=== PATIENT | female | born 1990 | race Caucasian/White ===

== ENCOUNTER 2022-07-19 15:36 | Outpatient (REF) | payer BC, SELFPAY ==
--- NOTE | ~2022-07-19 | US_ITS ---
EXAMINATION: US SOFT TISSUE NECK CLINICAL INFORMATION: Localized swelling, mass or lump in the neck COMPARISON: None TECHNIQUE: Grayscale and color imaging of the left neck using a linear transducer FINDINGS: There is an enlarged lymph node seen inferior to the left ear and adjacent to the superficial lobe of the left parotid gland. This measures 3.6 x 3.7 x 2.4 cm in sagittal, transverse and AP dimension. This demonstrates abnormal ultrasound morphology with hypoechoic diffusely thickened cortex and slitlike hilum. This demonstrates abnormal cortical flow. US/US soft tiss head and/or neck IMPRESSION: Enlarged abnormal appearing left cervical lymph node. Infectious, inflammatory and neoplastic processes should be considered. This would be amenable to ultrasound-guided fine-needle aspiration if clinically indicated. 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
[2022-07-19 15:44] LABS: MANUAL DIFF FLAG NO
[2022-07-19 15:51] LABS: Basophils Absolute Auto 0.1 X10*3/uL (0.0-0.2); Basophils Percent Auto 0.5 % (0-2); Eosinophils Absolute Auto 0.2 X10*3/uL (0.0-0.4); Eosinophils Percent Auto 2.1 % (0-4); Hematocrit 39.2 % (37.0-47.0); Hemoglobin 13.1 g/dl (12.0-16.0); Imm Gran Abs Auto 0.05 X10*3/uL (0.00-0.03); Imm Gran Pct Auto 0.4 % (0.0-0.4); Lymphocytes Absolute Auto 3.3 X10*3/uL (1.2-4.9); Lymphocytes Percent Auto 28.4 % (20-40); Mean Corpuscular HGB Conc 33.4 g/dl (31.0-35.0); Mean Corpuscular Hemoglobin 30.6 pg (27.0-33.0); Mean Corpuscular Volume 91.6 fL (80.0-98.0); Mean Platelet Volume 10.3 fL (9.4-12.3); Monocytes Absolute Auto 0.8 X10*3/uL (0.1-1.2); Monocytes Percent Auto 7.1 % (2-11); Neutrophils Absolute Auto 7.1 x10*3/uL (2.0-8.3); Neutrophils Percent Auto 61.5 % (45-73); Platelet Count 294 X10*3/uL (160-400); Red Blood Count 4.28 X10*6/uL (4.20-5.50); Red Cell Distribution Width 12.6 % (11.0-16.0); White Blood Count 11.5 X10*3/uL (4.8-10.8)
[2022-07-19 16:39] LABS: Alanine Aminotransferase 20 U/L (0-31); Albumin Level 4.8 g/dL (3.5-5.0); Alkaline Phosphatase 60 U/L (39-117); Anion Gap 14 (12-20); Aspartate Amino Transferase 18 U/L (5-31); Blood Urea Nitrogen 11 mg/dL (9-16); Calcium 9.7 mg/dL (8.4-10.2); Carbon Dioxide 25 mmol/L (22-29); Chloride 100 mmol/L (96-108); Cholesterol 257 mg/dL; Estimated Glomerular Filt Rate > 60; Glucose Fasting 86 mg/dL (60-99); HDL Cholesterol 55 mg/dL; LDL Cholesterol Calculated 171 mg/dl; Potassium 3.8 mmol/L (3.3-5.1); Sodium 135 mmol/L (135-145); TSH reflex Free T4 0.89 uIU/mL (0.32-4.0); Total Protein 7.3 g/dL (6.5-8.0); Triglycerides 157 mg/dL
[2022-07-20 16:51] LABS: C Reactive Protein 0.37 mg/dL (< or = 0.50)
== END 2022-07-19 15:37 | disposition home or self-care (01) ==
LOC: HO.US 15:36
PROVIDERS: PCP Family Medicine; Visit Provider Nurse Practitioner Family
DX: R22.1 Localized swelling, mass and lump, neck (principal)
CPT/HCPCS: 36415; 76536; 80053; 80061; 84443; 85025; 86140

== ENCOUNTER 2022-07-28 08:03 | Outpatient (REF) | payer BC, SELFPAY ==
--- NOTE | ~2022-07-28 | US_ITS ---
EXAMINATION: CLINICAL INFORMATION: COMPARISON: None TECHNIQUE: FINDINGS: US/US biopsy lymph node IMPRESSION:
--- NOTE | ~2022-07-28 | US_ITS ---
EXAMINATION: ULTRASOUND GUIDED FINE-NEEDLE BIOPSY LEFT NECK MASS CLINICAL INFORMATION: Increasing left soft tissue neck mass now with jaw pain. COMPARISON: Ultrasound soft tissue neck 07/19/2022. TECHNIQUE: Following explaining ultrasound-guided fine-needle biopsy aspiration of left soft tissue neck mass procedure, benefits and risk, a written consent was obtained. Patient was placed supine and preliminary ultrasound imaging to the left neck was obtained. An optimal site was selected along the left neck and marked. The marked site was cleaned and draped in usual sterile manner. 1% lidocaine was injected at the puncture site. Under sterile ultrasound guidance a 25-gauge needle attached to syringe was inserted through the skin into the soft tissue mass and a 3 pass fine-needle biopsy aspiration was performed. Subsequently, a 20-gauge biopsy gun was advanced and a 3 pass lymph node biopsy was performed. Postprocedure ultrasound was performed. Complete hemostasis achieved at puncture site. Simple dressing was applied at the puncture site. Patient tolerated procedure extremely well. FINDINGS: On preliminary ultrasound imaging, there is a lobulated or 2 larger hypoechoic masses, likely lymph nodes seen along the left neck. Preliminary pathology results revealed epithelial cells. Definite results are pending. US/US guided fine needle asp IMPRESSION: Successful ultrasound-guided left neck soft tissue mass with 3 pass fine-needle and 2 core biopsy performed.
== END 2022-07-28 08:04 | disposition home or self-care (01) ==
LOC: HO.US 08:03
PROVIDERS: Visit Provider Nurse Practitioner Family
DX: C44.42 Squamous cell carcinoma of skin of scalp and neck (principal)
CPT/HCPCS: 10005; 38505; 76942; 88172; 88173; 88177; 88305; 88333; 88341; 88342

== ENCOUNTER 2022-08-08 13:42 | Outpatient (REF) | payer BC, SELFPAY ==
--- NOTE | ~2022-08-08 | CT_ITS ---
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 COMPARISON: None TECHNIQUE: Following the administration of 60 mL of Omnipaque 350 intravenous contrast, helical imaging was performed in the axial plane with generation of coronal and sagittal reformatted images. This CT examination was performed using dose optimization techniques as appropriate, variously including the following: *Automated exposure control *Adjustment of mA and/or kV according to patient size (this includes techniques or standardized protocols for targeted exams where dose is matched to indication/reason for exam; i.e. extremities or head) *Use of iterative reconstruction technique DLP: 290 mGy-cm FINDINGS: There is a large conglomerate dustin mass measuring up to 4.8 cm involving the left parotid gland and extending inferiorly to level 2 and 3. There is mild associated stranding which may represent extracapsular extension. There is a mildly enlarged left level 3 lymph node measuring 1.2 cm. There is a mildly enlarged 1.5 cm right level 2A lymph node but demonstrates a normal hyaline is presumably reactive. The nasopharynx and oropharynx appear normal. No palatine tonsil or definite base of tongue abnormality is seen. The right parotid gland bilateral submandibular glands appear normal. The thyroid gland appears normal. No enlarged upper mediastinal lymph nodes are seen. The major neck vessels demonstrate normal enhancement. The cervical spine is intact without significant degenerative changes. There is no acute intracranial abnormality. The upper lungs are clear. CT/CT soft tissue neck w IV con IMPRESSION: Bulky conglomerate dustin mass involving the left parotid gland and extending to level 2 and 3. Mildly enlarged left level 3 lymph node also noted. No definite pharyngeal or laryngeal lesion is seen.
[2022-08-08] MEDS: iohexoL 350 MG/ML 100 ML INFUS..BTL IV (14:12)
== END 2022-08-08 13:43 | disposition home or self-care (01) ==
LOC: HO.CT 13:42
PROVIDERS: Visit Provider Nurse Practitioner Family
DX: C44.42 Squamous cell carcinoma of skin of scalp and neck (principal); R22.1 Localized swelling, mass and lump, neck
CPT/HCPCS: 70491; Q9967

== ENCOUNTER 2023-10-16 12:18 | Outpatient (REF) | payer BC, SELFPAY ==
[2023-10-16 15:10] LABS: Free T4 (Free Thyroxine) 0.77 ng/dL (0.71-1.85); Thyroid Stimulating Hormone 3.79 uIU/mL (0.32-4.0)
[2023-10-17 09:13] LABS: T4 Thyroxine 4.8 ug/dL (4.5-12.0)
== END 2023-10-16 12:19 | disposition home or self-care (01) ==
LOC: HO.WFDLDS 12:18
PROVIDERS: Visit Provider Internal Medicine
DX: C67.0 Malignant neoplasm of trigone of bladder (principal); R94.6 Abnormal results of thyroid function studies
CPT/HCPCS: 36415; 84436; 84439; 84443

== ENCOUNTER 2023-12-20 09:33 | Outpatient (REF) | payer BC, SELFPAY ==
[2023-12-20 11:28] LABS: MANUAL DIFF FLAG NO
[2023-12-20 11:32] LABS: Appearance Urine Clear; Color Urine Yellow; Glucose Urine UA Negative (Negative); Leukocyte Esterase Urine Negative (Negative); Nitrite Urine Negative (Negative); PH 5.5 (5.0-9.0); Specific Gravity - Urine 1.025 (1.005-1.025); UMIC TRIGGER UA YES; Urine Blood Small (1+) (Negative); Urine Ketones Negative (Negative); Urine Protein Negative (Neg-Trace)
[2023-12-20 11:33] LABS: Basophils Percent Auto 0.6 % (0-2); Eosinophils Absolute Auto 0.1 X10*3/uL (0.0-0.4); Hematocrit 36.9 % (37.0-47.0); Hemoglobin 12.5 g/dl (12.0-16.0); Imm Gran Abs Auto 0.03 X10*3/uL (0.00-0.03); Imm Gran Pct Auto 0.5 % (0.0-0.4); Lymphocytes Absolute Auto 0.9 X10*3/uL (1.2-4.9); Lymphocytes Percent Auto 14.6 % (20-40); Mean Corpuscular HGB Conc 33.9 g/dl (31.0-35.0); Mean Corpuscular Hemoglobin 31.6 pg (27.0-33.0); Mean Corpuscular Volume 93.4 fL (80.0-98.0); Mean Platelet Volume 10.9 fL (9.4-12.3); Monocytes Absolute Auto 0.5 X10*3/uL (0.1-1.2); Monocytes Percent Auto 7.3 % (2-11); Neutrophils Absolute Auto 4.7 x10*3/uL (2.0-8.3); Platelet Count 261 X10*3/uL (160-400); Red Blood Count 3.95 X10*6/uL (4.20-5.50); Red Cell Distribution Width 12.7 % (11.0-16.0); White Blood Count 6.2 X10*3/uL (4.8-10.8)
[2023-12-20 11:36] LABS: Bacteria Urine None Seen (None Seen); Hyaline Casts Urine 0-2 /LPF (0-2); WBC Urine 0-5 /HPF (0-5)
[2023-12-20 12:09] LABS: Creatinine Urine 174.92 mg/dL; Microalbum/Creatinine Ratio Ur 6.8 ug/mg cr (<30)
[2023-12-20 12:36] LABS: Alanine Aminotransferase 16 U/L (0-31); Albumin Level 4.4 g/dL (3.5-5.0); Alkaline Phosphatase 41 U/L (39-117); Anion Gap 13 (12-20); Aspartate Amino Transferase 15 U/L (5-31); Bilirubin Total 0.2 mg/dL (0.0-1.0); Blood Urea Nitrogen 15 mg/dL (9-16); Calcium 9.7 mg/dL (8.4-10.2); Carbon Dioxide 22 mmol/L (22-29); Chloride 107 mmol/L (96-108); Cholesterol 191 mg/dL (<200); Estimated Glomerular Filt Rate > 60; Glucose Fasting 99 mg/dL (60-99); HDL Cholesterol 66 mg/dL (>40); LDL Cholesterol Calculated 106 mg/dL (<100); Potassium 4.1 mmol/L (3.3-5.1); Sodium 138 mmol/L (135-145); Total Protein 6.8 g/dL (6.5-8.0); Triglycerides 95 mg/dL (<150)
[2023-12-20 12:41] LABS: Free T4 (Free Thyroxine) 0.77 ng/dL (0.71-1.85); Thyroid Stimulating Hormone 3.02 uIU/mL (0.32-4.0)
[2023-12-21 06:20] LABS: Triiodothyronine T3 Total 90 ng/dL (76-181)
== END 2023-12-20 09:34 | disposition home or self-care (01) ==
LOC: HO.WFDLDS 09:33
PROVIDERS: Visit Provider Family Medicine
DX: Z00.00 Encounter for general adult medical examination without abnormal findings (principal); E55.9 Vitamin D deficiency, unspecified; E03.9 Hypothyroidism, unspecified; I10 Essential (primary) hypertension
CPT/HCPCS: 36415; 80053; 80061; 81001; 82043; 82306; 82570; 84439; 84443; 84480; 85025

== ENCOUNTER 2023-12-21 16:24 | Outpatient (AMB) | payer BC, SELFPAY ==
[2023-12-21 16:27] VITALS: BP 108/70; PULSE 80; RESP 13; TEMP 36.3; O2SAT 98; BMI 21.5
--- NOTE | 2023-12-21 16:27 | MHC.PC.OV ---
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 Uppers Or Linings Required: No Accompanied by: Self / Same As Patient Allergies No Known Allergies Allergy (Verified 12/21/23 16:47) Medication List - Last Reconciled 12/21/23 by Alejandra Holguin CNP acetaminophen (Tylenol Extra Strength) 1,000 mg PO Q6H PRN omeprazole magnesium 20 mg PO DAILY ondansetron HCl 8 mg PO Q12H trazodone 50 mg PO BEDTIME PRN 30 days Tobacco use date assessed: 12/21/23 Dental Screening Dental Screen Date: 12/21/23 Did you have a dental visit in the last 12 months?: Yes Did you have a dental problem in the last 6 months where you did not have access to dental care?: No Was dental information given to patient?: Patient has dentist HPI HPI Comments History of Present Illness Details 33-year-old female presents for an extended physical exam and review of recent blood work She is a patient of Dr. 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 She requests for omeprazole to be prescribed She admits to making healthy lifestyle changes, including diet and exercise She notes that her last pap smear test was with [facility] in 06/2023; followed yearly She notes that she is not up-to-date on the flu vaccine and declines the vaccine [facility] Medical History In vitro fertilization Surgical History H/O laparoscopy History of tonsillectomy H/O lateral meniscus repair of left knee Family History Maternal Grandfather Diabetes Paternal Grandmother Lung cancer Other Mental health disorder Substance abuse Social History Household Members: None Both parents involved: No Caregiver staying overnight: No Housing: Apartment Are you a primary early breastfeeding care specialist to a significant other at home: No Do you presently have visiting nurse or other home services: No 75 years or older and lives alone: No Alcohol intake: current Alcohol intake frequency: holidays/special occasions only Alcohol type: hard liquor Patient Tobacco Use Status: Former Tobacco user e-Cigarette/Vaping Use: Never Used service: No Current occupational status: employed 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 1. Little interest or pleasure in doing things: not at all 2. Feeling down, depressed, or hopeless: not at all 3. Trouble falling or staying asleep, or sleeping too much: not at all 4. Feeling tired or having little energy: not at all 5. Poor appetite or overeating: not at all 6. Feeling bad about yourself - or that you are a failure or have let yourself or your family down: not at all 7. Trouble concentrating on things, such as reading the newspaper or watching television: not at all 8. Moving or speaking so slowly that other people could have noticed. Or the opposite - being so fidgety or restless that you have been moving around a lot more than usual: not at all 9. Thoughts that you would be better off or of hurting yourself in some way: not at all Total score: 0 Depression Screening Interpretation: Negative Depression Screening Done: Yes Source: Developed by Drs. Jareth Hannah, Fatou Aquino, Keenan Hendricks and colleagues, with an educational keila from [employer]. Thrive Questionnaire Date Thrive assessed: 12/21/23 I am a: Patient What is your living situation today?: I have a steady place to live Within the past 12 months, did the food you bought not last and you didn't have the money to get more?: Never true Within the past 12 months, did you worry whether your food would run out before you got money to buy more?: Never true Do you have trouble paying for medicines?: No Do you have trouble getting transportation to medical appointments?: No Do you have trouble paying your heating and electricity bill?: No Do you have trouble taking care of your child, family member or friend?: No Do you have trouble with day-to-day activities such as bathing, preparing meals, shopping, managing finances, etc.?: No Are you currently unemployed and looking for a job?: No Are you interested in more education?: No Please select the resources that you would like help with: None Currently or been in a relationship where the following occur: no concerns reported THRIVE Score: 0 AUDIT C Alcohol Use Questionnaire (AUDIT-C) 1. How often do you have a drink containing alcohol?: Monthly or less 2. How many drinks containing alcohol do you have on a typical day when you are drinking?: 1 or 2 3. How often do you have six or more drinks on one occasion?: Never Total Score: 1 KANG-7 AMB Questionnaire KANG-7 Date KANG - 7 assessed: 12/21/23 Feeling nervous, anxious, or on edge: 0 = Not at all Not being able to stop or control worryin = Not at all Worrying too much about different things: 0 = Not at all Trouble relaxin = Not at all Being so restless that it is hard to sit still: 0 = Not at all Becoming easily annoyed or irritable: 0 = Not at all Feeling afraid as if something awful might happen: 0 = Not at all Total KANG-7 score (0-4 normal; 5-9 mild; 10-14 moderate; 15-21 severe): 0 Source: Developed by Drs. Jareth Hannah, Fatou Aquino, Keenan Hendricks and colleagues, with an educational keila from [employer]. KANG-7 Assessment Billing KANG-7 Assessment Tool: KANG-7 Assessment 16386 Review of Systems Const Details: Denies chills, Denies fatigue, Denies fever(s), Denies headache(s) and Denies weakness HEENT Denies change in vision, Denies dizziness, Denies headache(s), Denies hearing loss, Denies nasal congestion, Denies sinus pain, Denies sinus pressure and Denies sore throat Card Denies chest pain, Denies lightheadedness, Denies dyspnea and Denies other (palpitations) Resp Denies cough, Denies dyspnea and Denies wheezing GI Denies abdominal pain, Denies melena, Denies hematochezia, Denies change in bowel habits, Denies dyspepsia and Denies nausea Denies hematuria and Denies dysuria Musc Denies abnormal gait, Denies myalgias, Denies arthralgias, Denies numbness and Denies tingling Skin/Breast Denies rash, Denies unusual bruising and Denies wounds Neuro Denies abnormal gait, Denies dizziness, Denies headache(s), Denies memory loss, Denies numbness, Denies Sensory deficit (Neuro), Denies tingling and Denies weakness Psych Denies anxiety, Denies depression and Denies memory loss Endo Denies cold intolerance, Denies fatigue, Denies heat intolerance, Denies polydipsia and Denies polyuria Ellis/Lymph Denies easy bleeding and Denies easy bruising Aller/Immun Denies wheezing Physical exam (Primary Care) Vital Signs: Last Vital Signs Temp 97.3 F 12/21/23 16:27 Pulse 80 12/21/23 16:27 Resp 13 12/21/23 16:27 BP 108/70 12/21/23 16:27 Pulse Ox 98 12/21/23 16:27 Oxygen Delivery Method Room Air 12/21/23 16:27 BMI result Body Mass Index 21.5 Tobacco/Smoking Status: Tobacco use Status Tobacco use date assessed 12/21/23 12/21/23 16:38 Patient Tobacco Use Status Former Tobacco user 12/21/23 16:36 e-Cigarette/Vaping Use Never Used 12/21/23 16:36 PHQ-9: PHQ-9 Score PHQ-9: Total score 0 12/21/23 16:38 Depression Screening Interpretation: Negative Thrive Assessment: Date of Thrive Assessment Date Thrive assessed 12/21/23 12/21/23 16:38 Currently or been in a relationship where the following occur: no concerns reported Const Other: General: no acute distress, well developed, alert and awake Nutritional Appearance: well nourished Orientation/consciousness: patient oriented x3 HENMT Head: Yes normocephalic and Yes atraumatic Ears: hearing grossly normal bilaterally and TM's normal bilaterally General nose exam: Normal external nose present and Normal nares present Mouth: Normal oral and palatal mucosa present and moist mucous membranes Teeth and gingiva: dentition normal Throat: Yes oropharynx normal Eyes Pupils: Equal, round and reactive pupils present and Pupil accommodation reflex normal EOM: EOMs intact bilaterally Neck Neck: Yes normal visual inspection, Yes no lymphadenopathy and Yes trachea midline Thyroid: Thyroid normal Carotids: no bruits Lymphatic: no lymphadenopathy noted Chest Chest palpation & inspection: normal inspection of the chest Resp Effort & Inspection: normal respiratory effort Auscultation: clear to auscultation bilaterally Cardio Rate: regular rate Rhythm: regular rhythm Heart sounds: S1 normal heart sound present, S2 normal heart sound present, no gallops, no murmurs and no rubs Bruits: no abdominal aortic bruits and no carotid bruits GI Palpation (GI): No Abdominal aortic bruit present, Soft to palpation, nontender, No hepatosplenomegaly present and No Rebound tenderness present Auscultation: normal bowel sounds General: Yes no CVA tenderness Back/Spine/Pelvis Back: no CVA tenderness Cervical Spine: cervical ROM normal and No Cervical spine tenderness Thoracic/Lumbar Spine: thoraco-lumbar ROM normal, No pain with thoraco-lumbar ROM, No thoracic spinal tenderness and No lumbar spinal tenderness Skin General: warm and dry. Normal skin color. Normal skin turgor Lesions: no lesions Rashes: no rashes Trauma: no lacerations or abrasions Wounds: no wounds Nails: normal Neuro General: patient oriented x3, gait normal and CN's II-XI intact bilaterally Cranial nerves: Yes Equal, round and reactive pupils present Cognition (Neuro): normal cognition Gait exam (Neuro): Normal gait present Motor exam (neuro): 5/5 motor strength present throughout Sensory Exam: No Sensory deficit (Neuro) Deep tendon reflexes (DTR's): Right patellar reflex intensity grade: 2+ and Left patellar reflex intensity grade: 2+ Extrem General: Yes normal to inspection, No edema and No calf tenderness Psych Appearance: grossly normal Affect: normal affect Attitude: cooperative Thought process: Normal thought process present Assessment and Plan Assessment & Plan (1) Normal physical examination, routine: Code(s): Z00.00 - Encounter for general adult medical examination without abnormal findings Plan: No significant physical restrictions or limitations noted Continue current treatment regimen Healthy diet and routine exercise encouraged Recent labs reviewed with the patient; unremarkable findings Follow-up with PCP in 3 months for anxiety and depression or return sooner with symptoms or concerns Verbalized understanding agreed with the treatment plan (2) GERD (gastroesophageal reflux disease): Code(s): K21.9 - Gastro-esophageal reflux disease without esophagitis Plan: Reports chronic persistent acid reflux which responds well to omeprazole Omeprazole ordered. Take as prescribed Advised to avoid fatty or greasy foods Follow-up with worsening or new symptoms Verbalized understanding and agreed with treatment plan (3) Depression with anxiety: Code(s): F41.8 - Other specified anxiety disorders Plan: Controlled symptoms PHQ-9 and KANG-7 scores are normal Continue to take trazodone as prescribed Routine exercise encouraged Follow-up with PCP in 3 months or return sooner with worsening or new symptoms Verbalized understanding and agreed with treatment plan Coding Level of Care Code Est Pt Level 3 (66336) Est Pt Prev Care 18-39y([id number]) Diagnoses Normal physical examination, routine Z00.00 GERD (gastroesophageal reflux disease) K21.9 Depression with anxiety F41.8 Additional Codes KANG-7 Assessment Billing - KANG-7 Assessment Tool: KANG-7 Assessment 05444 ([id number])
== END 2023-12-21 17:09 | disposition home or self-care (01) ==
PROVIDERS: PCP Family Medicine; Visit Provider Nurse Practitioner Family
DX: Z00.00 Encounter for general adult medical examination without abnormal findings (principal); K21.9 Gastro-esophageal reflux disease without esophagitis; F41.8 Other specified anxiety disorders
CPT/HCPCS: 99213; 99395

== ENCOUNTER 2024-03-24 16:19 | Outpatient (AMB) | payer BC, SELFPAY ==
--- NOTE | 2024-03-24 16:34 | A.OFFPC_ITS ---
Vital Signs 03/24/24 16:40 Height 5 ft 6 in Weight 141 lb 4 oz BMI 22.8 BP 100/60 Blood Pressure Location Rt brachial Position Sitting Respiration 16 Pulse 63 Pulse Source Pulse Oximeter Temp 97.7 F Temp Source Tympanic Pulse Oximetry (%) 98 Oxygen Delivery Method Room Air Intake Visit Reasons: 3 mos anxiety, depression Intake Note: follow up on depression and anxiety medication Allergies No Known Allergies Allergy (Verified 03/24/24 16:34) Tobacco use date assessed: 12/21/23 Dental Screening Dental Screen Date: 12/21/23 HPI 3 mos anxiety, depression HPI Details 33 y/o female presents to f/u anxiety/de pression. PHQ-9 6, KANG-7 5 today. Labs drawn 12/20/23. Reviewed labs with pt. Triglycerides 95. TC 191. LDL improved from 171 to 106. HDL 66. She notes she does well with trazodone for her sleep. Continues to f/u with [facility] for squamous cell carcinoma of neck. She does report ongoing nausea. HPI Comments History of Present Illness Details Documentation assistance for Vu Oconnell MD, was provided by Noah Tillman, Retail Reset Merchandiser on 03/24/2024 at 5:19 PM EST. I, Dr. Oconnell, have read, observed, and verified documentation. [facility] Medical History In vitro fertilization Surgical History H/O laparoscopy History of tonsillectomy H/O lateral meniscus repair of left knee Family History Maternal Grandfather Diabetes Paternal Grandmother Lung cancer Other Mental health disorder Substance abuse Social History Household Members: None Both parents involved: No Caregiver staying overnight: No Housing: Apartment Are you a primary customer care specialist to a significant other at home: No Do you presently have visiting nurse or other home services: No 75 years or older and lives alone: No Alcohol intake: current Alcohol intake frequency: holidays/special occasions only Alcohol type: hard liquor Patient Tobacco Use Status: Former Tobacco user e-Cigarette/Vaping Use: Never Used service: No Current occupational status: employed 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 1. Little interest or pleasure in doing things: not at all 2. Feeling down, depressed, or hopeless: not at all 3. Trouble falling or staying asleep, or sleeping too much: several days 4. Feeling tired or having little energy: several days 5. Poor appetite or overeating: nearly every day 6. Feeling bad about yourself - or that you are a failure or have let yourself or your family down: not at all 7. Trouble concentrating on things, such as reading the newspaper or watching television: several days 8. Moving or speaking so slowly that other people could have noticed. Or the opposite - being so fidgety or restless that you have been moving around a lot more than usual: not at all 9. Thoughts that you would be better off or of hurting yourself in some way: not at all Total score: 6 Depression Screening Interpretation: Positive Depression Screening Done: Yes 90230 - PHQ-9 Billing: Yes Source: Developed by Drs. Jareth Hannah, Fatou Aquino, Keenan Hendricks and colleagues, with an educational keila from [employer]. Thrive Questionnaire Date Thrive assessed: 03/24/24 What is your living situation today?: I have a steady place to live Within the past 12 months, did the food you bought not last and you didn't have the money to get more?: Never true Within the past 12 months, did you worry whether your food would run out before you got money to buy more?: Never true Do you have trouble paying for medicines?: No Do you have trouble getting transportation to medical appointments?: No Do you have trouble paying your heating and electricity bill?: No Do you have trouble taking care of your child, family member or friend?: No Do you have trouble with day-to-day activities such as bathing, preparing meals, shopping, managing finances, etc.?: No Are you currently unemployed and looking for a job?: No Are you interested in more education?: Yes Please select the resources that you would like help with: None Currently or been in a relationship where the following occur: No concerns reported THRIVE Score: 0 AUDIT C Alcohol Use Questionnaire (AUDIT-C) 1. How often do you have a drink containing alcohol?: Monthly or less 2. How many drinks containing alcohol do you have on a typical day when you are drinking?: 3 or 4 3. How often do you have six or more drinks on one occasion?: Less than monthly Total Score: 3 Score Reviewed/Action Taken: Yes KANG-7 AMB Questionnaire AKNG-7 Date KANG - 7 assessed: 03/24/24 Feeling nervous, anxious, or on edge: 1 = Several days Not being able to stop or control worryin = Not at all Worrying too much about different things: 1 = Several days Trouble relaxin = Several days Being so restless that it is hard to sit still: 2 = More than half the days Becoming easily annoyed or irritable: 0 = Not at all Feeling afraid as if something awful might happen: 0 = Not at all Total KANG-7 score (0-4 normal; 5-9 mild; 10-14 moderate; 15-21 severe): 5 Source: Developed by Drs. Jareth Hannah, Fatou Aquino, Keenan Hendricks and colleagues, with an educational keila from [employer]. KANG-7 Assessment Billing KANG-7 Assessment Tool: KANG-7 Assessment 20202 Review of Systems Const Denies chills, Denies fatigue, Denies fever(s), Denies headache(s) and Denies weakness ENT Denies dizziness and Denies headache(s) Card Denies dyspnea Resp Denies cough, Denies dyspnea, Denies wheezing and Denies other (shortness of breath) GI Reports nausea Musc Denies numbness and Denies tingling Neuro Denies dizziness, Denies headache(s), Denies numbness, Denies tingling and Denies weakness Psych Reports anxiety and Reports depression Endo Denies fatigue Aller/Immun Denies wheezing Physical exam (Primary Care) Vital Signs: Last Vital Signs Temp 97.7 F 03/24/24 16:40 Pulse 63 03/24/24 16:40 Resp 16 03/24/24 16:40 BP 100/60 03/24/24 16:40 Pulse Ox 98 03/24/24 16:40 Oxygen Delivery Method Room Air 03/24/24 16:40 BMI result Body Mass Index 22.8 Tobacco/Smoking Status: Tobacco use Status Tobacco use date assessed 12/21/23 03/24/24 16:44 Patient Tobacco Use Status Former Tobacco user 03/24/24 16:44 e-Cigarette/Vaping Use Never Used 03/24/24 16:44 PHQ-9: PHQ-9 Score PHQ-9: Total score 6 03/24/24 16:55 Depression Screening Interpretation: Positive Thrive Assessment: Date of Thrive Assessment Date Thrive assessed 03/24/24 03/24/24 16:44 Currently or been in a relationship where the following occur: No concerns reported Const General: well developed; No acute distress Nutritional Appearance: well nourished Orientation/consciousness: patient oriented x3 HENMT Head: Yes normocephalic and Yes atraumatic Eyes General: appearance normal, both eyes and all related structures Pupils: Equal, round and reactive pupils present EOM: EOMs intact bilaterally Resp Effort & Inspection: normal respiratory effort Auscultation: clear to auscultation bilaterally Cardio Rate: regular rate Rhythm: regular rhythm Heart sounds: S1 normal heart sound present, S2 normal heart sound present, no gallops, no murmurs and no rubs Neuro General: patient oriented x3 and gait normal Cranial nerves: Yes Equal, round and reactive pupils present Psych Affect: normal affect Assessment and Plan Assessment & Plan (1) Depression with anxiety: Code(s): F41.8 - Other specified anxiety disorders Plan: Stable?and?using?trazodone?for?sleep?with ?good?affect?though?there?are?days?when?she?has?not?taken?the?trazodone?because? she?would?wake?up?drowsy - understands?that?she?should?take?trazodone?earlier?but?sometimes?she?can?not?do? this Can?try?some?hydroxyzine (2) Elevated LDL cholesterol level: Code(s): E78.00 - Pure hypercholesterolemia, unspecified Plan: Continue?to?work?at?a?diet?lower?in?saturated?fats?and?cholesterol (3) Difficulty sleeping: Code(s): G47.9 - Sleep disorder, unspecified Plan: As?above (4) Squamous cell carcinoma of neck: Code(s): C44.42 - Squamous cell carcinoma of skin of scalp and neck Plan: Stable?and?followed?by?[facility] Still?gets?nausea Will?give?her?a?script?for?Zofran Orders: Orders Comprehensive [place]. Panel Fast Today Z00.00 - Encounter for general adult med ical examination without abnormal findings Lipid Panel Today Z00.00 - Encounter for general adult medical examination without abnormal findings Microalbumin, Random (w Creat) Today I10 - Essential (primary) hypertension UA and rflx microscopic Today Z00.00 - Encounter for general adult medical examination without abnormal findings TSH reflex Free T4 Today Z00.00 - Encounter for general adult medical examination without abnormal findings Free T4 (Free Thyroxine) Today E03.9 - Hypothyroidism, unspecified Complete Blood Count Auto Diff Today Z00.00 - Encounter for general adult medical examination without abnormal findings Triiodothyronine T3 Total Today E03.9 - Hypothyroidism, unspecified Medications: New hydroxyzine HCl 25 mg PO BEDTIME 30 days PRN 10 tabs 0RF anxiety/difficulty sleeping C44.42 - Squamous cell carcinoma of skin of scalp and neck ondansetron 4 mg PO DAILY 30 days PRN 30 tabs 1RF nausea and vomiting C44.42 - Squamous cell carcinoma of skin of scalp and neck Coding Level of Care Code Est Pt Level 4 (43747) Diagnoses Depression with anxiety F41.8 Elevated LDL cholesterol level E78.00 Difficulty sleeping G47.9 Squamous cell carcinoma of neck C44.42 Additional Codes KANG-7 Assessment Billing - KANG-7 Assessment Tool: KANG-7 Assessment 75449 ([id number])
[2024-03-24 16:40] VITALS: BP 100/60; PULSE 63; RESP 16; TEMP 36.5; O2SAT 98; BMI 22.8
== END 2024-03-24 17:29 | disposition home or self-care (01) ==
PROVIDERS: PCP Family Medicine; Visit Provider Family Medicine
DX: F41.8 Other specified anxiety disorders (principal); E78.00 Pure hypercholesterolemia, unspecified; G47.9 Sleep disorder, unspecified; C44.42 Squamous cell carcinoma of skin of scalp and neck
CPT/HCPCS: 96127; 99214

== ENCOUNTER 2024-10-20 08:25 | Outpatient (AMB) | payer BC, SELFPAY ==
--- NOTE | 2024-10-20 08:41 | MHC.PC.OV ---
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 Required: No Is last menstrual period known: Yes Last menstrual period: 11/11/24 Post menopausal: No Patient : No Allergies No Known Allergies Allergy (Verified 10/20/24 08:44) Medication List - Last Reconciled 10/20/24 by Vu Oconnell MD acetaminophen (Tylenol Extra Strength) 1,000 mg PO Q6H PRN hydroxyzine HCl 25 mg PO BEDTIME PRN 90 days omeprazole magnesium 20 mg PO DAILY ondansetron 4 mg PO DAILY PRN 30 days ondansetron HCl 8 mg PO Q12H trazodone 50 mg PO BEDTIME PRN 30 days Tobacco use date assessed: 10/20/24 Dental Screening Dental Screen Date: 10/20/24 Did you have a dental visit in the last 12 months?: Yes Did you have a dental problem in the last 6 months where you did not have access to dental care?: No Was dental information given to patient?: No HPI annual HPI Details Patient?presents?for?annual?exam No?recent?labs?to?review. He?has?complaints?epigastric?discomfort?and?dyspepsia.??Some?GERD. She?is?taking?Tums?daily?and?still?having?symptoms?that?sometimes?break?through?this. No?other?complaints?today. [facility] Medical History In vitro fertilization Surgical History H/O laparoscopy History of tonsillectomy H/O lateral meniscus repair of left knee Family History Maternal Grandfather Diabetes Paternal Grandmother Lung cancer Other Mental health disorder Substance abuse Social History Household Members: None Both parents involved: No Caregiver staying overnight: No Housing: Apartment Are you a primary social worker palliative care to a significant other at home: No Do you presently have visiting nurse or other home services: No 75 years or older and lives alone: No Alcohol intake: current Alcohol intake frequency: holidays/special occasions only Alcohol type: hard liquor Patient Tobacco Use Status: Former Tobacco user e-Cigarette/Vaping Use: Never Used service: No Current occupational status: employed 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 1. Little interest or pleasure in doing things: not at all 2. Feeling down, depressed, or hopeless: not at all 3. Trouble falling or staying asleep, or sleeping too much: several days 4. Feeling tired or having little energy: several days 5. Poor appetite or overeating: several days 6. Feeling bad about yourself - or that you are a failure or have let yourself or your family down: not at all 7. Trouble concentrating on things, such as reading the newspaper or watching television: not at all 8. Moving or speaking so slowly that other people could have noticed. Or the opposite - being so fidgety or restless that you have been moving around a lot more than usual: not at all 9. Thoughts that you would be better off or of hurting yourself in some way: not at all Total score: 3 Depression Screening Interpretation: Negative Depression Screening Done: Yes 19030 - PHQ-9 Billing: Yes Source: Developed by Drs. Jareth Hannah, Fatou Aquino, Keenan Hendricks and colleagues, with an educational keila from [employer]. Thrive Questionnaire Date Thrive assessed: 10/20/24 I am a: Patient What is your living situation today?: I have a steady place to live Within the past 12 months, did the food you bought not last and you didn't have the money to get more?: Never true Within the past 12 months, did you worry whether your food would run out before you got money to buy more?: Never true Do you have trouble paying for medicines?: No Do you have trouble getting transportation to medical appointments?: No Do you have trouble paying your heating and electricity bill?: No Do you have trouble taking care of your child, family member or friend?: No Do you have trouble with day-to-day activities such as bathing, preparing meals, shopping, managing finances, etc.?: No Are you currently unemployed and looking for a job?: No Are you interested in more education?: Yes Please select the resources that you would like help with: None Currently or been in a relationship where the following occur: No concerns reported THRIVE Score: 0 AUDIT C Alcohol Use Questionnaire (AUDIT-C) 1. How often do you have a drink containing alcohol?: 2-4 times a month 2. How many drinks containing alcohol do you have on a typical day when you are drinking?: 3 or 4 3. How often do you have six or more drinks on one occasion?: Never Total Score: 3 Score Reviewed/Action Taken: Yes KANG-7 AMB Questionnaire KANG-7 Date KANG - 7 assessed: 10/20/24 Feeling nervous, anxious, or on edge: 1 = Several days Not being able to stop or control worryin = Several days Worrying too much about different things: 1 = Several days Trouble relaxin = Several days Being so restless that it is hard to sit still: 1 = Several days Becoming easily annoyed or irritable: 1 = Several days Feeling afraid as if something awful might happen: 0 = Not at all Total KANG-7 score (0-4 normal; 5-9 mild; 10-14 moderate; 15-21 severe): 6 Source: Developed by Drs. Jareth Hannah, Fatou Aquino, Keenan Hendricks and colleagues, with an educational keila from [employer]. KANG-7 Assessment Billing KANG-7 Assessment Tool: KANG-7 Assessment 44381 Review of Systems Const Denies chills, Denies fatigue, Denies fever(s), Denies headache(s) and Denies weakness Eyes Denies change in vision ENT Denies dizziness, Denies headache(s), Denies hearing loss, Denies nasal congestion, Denies sinus pain, Denies sinus pressure and Denies sore throat Card Denies chest pain, Denies lightheadedness, Denies dyspnea and Denies other (palpitations) Resp Denies cough, Denies dyspnea and Denies wheezing GI Denies melena, Denies hematochezia, Denies change in bowel habits, Reports dyspepsia and Reports nausea Denies hematuria and Denies dysuria Musc Denies abnormal gait, Denies myalgias, Denies arthralgias, Denies numbness and Denies tingling Skin/Breast Denies rash, Denies unusual bruising and Denies wounds Neuro Denies abnormal gait, Denies dizziness, Denies headache(s), Denies memory loss, Denies numbness, Denies Sensory deficit (Neuro), Denies tingling and Denies weakness Psych Denies anxiety, Denies depression and Denies memory loss Endo Denies cold intolerance, Denies fatigue, Denies heat intolerance, Denies polydipsia and Denies polyuria Ellis/Lymph Denies easy bleeding and Denies easy bruising Aller/Immun Denies wheezing Physical exam (Primary Care) Vital Signs: Last Vital Signs Temp 98.0 F 10/20/24 08:46 Pulse 58 10/20/24 08:46 Resp 14 10/20/24 08:46 BP 90/60 10/20/24 08:46 Pulse Ox 98 10/20/24 08:46 Oxygen Delivery Method Room Air 10/20/24 08:46 BMI result Body Mass Index 25.3 Tobacco/Smoking Status: Tobacco use Status Tobacco use date assessed 10/20/24 10/20/24 08:50 Patient Tobacco Use Status Former Tobacco user 10/20/24 08:50 e-Cigarette/Vaping Use Never Used 10/20/24 08:50 PHQ-9: PHQ-9 Score PHQ-9: Total score 3 10/20/24 08:50 Depression Screening Interpretation: Negative Thrive Assessment: Date of Thrive Assessment Date Thrive assessed 10/20/24 10/20/24 08:50 Currently or been in a relationship where the following occur: No concerns reported Const General: no acute distress, well developed, alert and awake Nutritional Appearance: well nourished Orientation/consciousness: patient oriented x3 HENMT Head: Yes normocephalic and Yes atraumatic Ears: hearing grossly normal bilaterally and TM's normal bilaterally General nose exam: Normal external nose present and Normal nares present Mouth: Normal oral and palatal mucosa present and moist mucous membranes Teeth and gingiva: dentition normal Throat: Yes posterior oropharynx normal Eyes Pupils: Equal, round and reactive pupils present and Pupil accommodation reflex normal EOM: EOMs intact bilaterally Neck Neck: Yes normal visual inspection, Yes no lymphadenopathy and Yes trachea midline Thyroid: Thyroid normal Carotids: no bruits Lymphatic: no lymphadenopathy noted Chest Chest palpation & inspection: normal inspection of the chest Resp Effort & Inspection: normal respiratory effort Auscultation: clear to auscultation bilaterally Cardio Rate: regular rate Rhythm: regular rhythm Heart sounds: S1 normal heart sound present, S2 normal heart sound present, no gallops, no murmurs and no rubs Bruits: no abdominal aortic bruits and no carotid bruits GI Palpation (GI): No Abdominal aortic bruit present, Soft to palpation, nontender, No hepatosplenomegaly present and No Rebound tenderness present Auscultation: normal bowel sounds General: Yes no CVA tenderness Back/Spine/Pelvis Back: no CVA tenderness Cervical Spine: cervical ROM normal and No Cervical spine tenderness Thoracic/Lumbar Spine: thoraco-lumbar ROM normal, No pain with thoraco-lumbar ROM, No thoracic spinal tenderness and No lumbar spinal tenderness Skin Lesions: no lesions Rashes: no rashes Trauma: no lacerations or abrasions Wounds: no wounds Nails: normal Neuro General: patient oriented x3, gait normal and CN's II-XI intact bilaterally Cranial nerves: Yes Equal, round and reactive pupils present Cognition (Neuro): normal cognition Gait exam (Neuro): Normal gait present Motor exam (neuro): 5/5 motor strength present throughout Sensory Exam: No Sensory deficit (Neuro) Deep tendon reflexes (DTR's): Right patellar reflex intensity grade: 2+ and Left patellar reflex intensity grade: 2+ Extrem General: Yes normal to inspection and No edema Psych Appearance: grossly normal Affect: normal affect Attitude: cooperative Thought process: Normal thought process present Coding Level of Care Code Est Pt Prev Care 18-39y(12243) Diagnoses Normal physical examination, routine Z00.00 Dyspepsia R10.13 Epigastric pain R10.13 Screening for cervical cancer Z12.4 Squamous cell carcinoma of neck C44.42 Additional Codes KANG-7 Assessment Billing - KANG-7 Assessment Tool: KANG-7 Assessment 30894 ([id number]) PHQ-9 - 73348 - PHQ-9 Billing: Yes ([id number]) Assessment & Plan Assessment & Plan (1) Normal physical examination, routine: Code(s): Z00.00 - Encounter for general adult medical examination without abnormal findings Category: Medical Plan: 34-year-old?female?presents?for?complete?physical?exam Encouraged?healthy?diet?with?active?lifestyle?and?plenty?of?exercise (2) Dyspepsia: Code(s): R10.13 - Epigastric pain Category: Medical Plan: Epigastric?pain?and?dyspepsia?with?some?GERD. ?Also?some?nausea. Getting?symptoms?every?day?despite?taking?omeprazole?daily. 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 I?encouraged?her?to?give?them?a?call (5) Squamous cell carcinoma of neck: Code(s): C44.42 - Squamous cell carcinoma of skin of scalp and neck Category: Medical Plan: S/p?chemotherapy?for?metastatic?squamous?cell?carcinoma?of?the?head?and?neck?at?[facility] Stable Follow-up?with?Hematology-Oncology?at?[facility]?as?recommended Orders: Orders Complete Blood Count Auto Diff Today Z00.00 - Encounter for general adult medical examination without abnormal findings Free T4 (Free Thyroxine) Today E03.9 - Hypothyroidism, unspecified UA and rflx microscopic Today Z00.00 - Encounter for general adult medical examination without abnormal findings Lipid Panel Today Z00.00 - Encounter for general adult medical examination without abnormal findings Vitamin B12 and Folate Today E53.8 - Deficiency of other specified B group vitamins H pylori Ag Stool Today R10.13 - Epigastric pain Comprehensive [place]. Panel Fast Today Z00.00 - Encounter for general adult medical examination without abnormal findings Thyroid Stimulating Hormone Today E03.9 - Hypothyroidism, unspecified Triiodothyronine T3 Total Today E03.9 - Hypothyroidism, unspecified Microalbumin, Random (w Creat) Today I10 - Essential (primary) hypertension Vitamin D 25-OH Total Today E55.9 - Vitamin D deficiency, unspecified Medications: New famotidine 20 mg PO BID 30 days 60 tabs 0RF sucralfate 1 g PO BID 30 days 60 tabs 0RF
[2024-10-20 08:46] VITALS: BP 90/60; PULSE 58; RESP 14; TEMP 36.7; O2SAT 98; BMI 25.3
== END 2024-10-20 09:28 | disposition home or self-care (01) ==
PROVIDERS: PCP Family Medicine; Visit Provider Family Medicine
DX: Z00.00 Encounter for general adult medical examination without abnormal findings (principal); R10.13 Epigastric pain; Z12.4 Encounter for screening for malignant neoplasm of cervix; C44.42 Squamous cell carcinoma of skin of scalp and neck

== ENCOUNTER → 2024-10-20 08:25 | Outpatient (BNVA) | payer BC, SELFPAY | PROVIDERS: PCP Family Medicine; Visit Provider Family Medicine | DX: Z00.00 Encounter for general adult medical examination without abnormal findings (principal); R10.13 Epigastric pain; C44.42 Squamous cell carcinoma of skin of scalp and neck; Z92.21 Personal history of antineoplastic chemotherapy | CPT/HCPCS: 96127 ==

== ENCOUNTER 2024-10-28 09:49 | Outpatient (REF) | payer BC, SELFPAY ==
[2024-10-28 11:44] LABS: MANUAL DIFF FLAG NO
[2024-10-28 11:45] LABS: Appearance Urine Clear; Color Urine Yellow; Glucose Urine UA Negative (Negative); Leukocyte Esterase Urine Negative (Negative); Nitrite Urine Negative (Negative); PH 5.5 (5.0-9.0); Specific Gravity - Urine 1.015 (1.005-1.025); UMIC TRIGGER UA YES; Urine Blood Trace (Negative); Urine Ketones Negative (Negative); Urine Protein Negative (Neg-Trace)
[2024-10-28 11:48] LABS: Bacteria Urine None Seen (None Seen); Hyaline Casts Urine 0-2 /LPF (0-2); RBC Urine 0-2 /HPF (0-2); Squamous Epithelial Cell Urine 0-2 /HPF (0-2); WBC Urine 0-5 /HPF (0-5)
[2024-10-28 11:49] LABS: Basophils Absolute Auto 0.1 X10*3/uL (0.0-0.2); Basophils Percent Auto 0.7 % (0-2); Eosinophils Absolute Auto 0.1 X10*3/uL (0.0-0.4); Eosinophils Percent Auto 1.3 % (0-4); Hematocrit 37.3 % (37.0-47.0); Imm Gran Abs Auto 0.03 X10*3/uL (0.00-0.03); Imm Gran Pct Auto 0.4 % (0.0-0.4); Lymphocytes Absolute Auto 1.3 X10*3/uL (1.2-4.9); Lymphocytes Percent Auto 17.8 % (20-40); Mean Corpuscular HGB Conc 32.2 g/dl (31.0-35.0); Mean Corpuscular Hemoglobin 30.2 pg (27.0-33.0); Mean Platelet Volume 11.4 fL (9.4-12.3); Monocytes Absolute Auto 0.5 X10*3/uL (0.1-1.2); Monocytes Percent Auto 6.8 % (2-11); Neutrophils Absolute Auto 5.1 x10*3/uL (2.0-8.3); Platelet Count 270 X10*3/uL (160-400); Red Blood Count 3.97 X10*6/uL (4.20-5.50); Red Cell Distribution Width 12.6 % (11.0-16.0)
[2024-10-28 12:50] LABS: Creatinine Urine 68.03 mg/dL; Microalbumin Urine < 5.0 mg/L
[2024-10-28 13:16] LABS: Alanine Aminotransferase 19 U/L (0-31); Albumin Level 4.4 g/dL (3.5-5.0); Alkaline Phosphatase 47 U/L (39-117); Anion Gap 11 (12-20); Aspartate Amino Transferase 20 U/L (5-31); Bilirubin Total 0.2 mg/dL (0.0-1.0); Blood Urea Nitrogen 11 mg/dL (9-16); Calcium 9.1 mg/dL (8.4-10.2); Carbon Dioxide 23 mmol/L (22-29); Chloride 109 mmol/L (96-108); Cholesterol 212 mg/dL (<200); Estimated Glomerular Filt Rate > 60; Free T4 (Free Thyroxine) 0.76 ng/dL (0.71-1.85); Glucose Fasting 88 mg/dL (60-99); HDL Cholesterol 60 mg/dL (>40); LDL Cholesterol Calculated 135 mg/dL (<100); Potassium 3.7 mmol/L (3.3-5.1); Sodium 139 mmol/L (135-145); Thyroid Stimulating Hormone 4.43 uIU/mL (0.32-4.0); Triglycerides 88 mg/dL (<150); Vitamin D 25-OH Total 32.6 ng/mL (>30)
[2024-10-28 13:18] LABS: Folate 10.9 ng/mL (> or = 4.0); Vitamin B12 521 pg/mL (200-900)
[2024-10-29 07:13] LABS: Triiodothyronine T3 Total 80 ng/dL (76-181)
== END 2024-10-28 09:50 | disposition home or self-care (01) ==
LOC: HO.WFDLDS 09:49
PROVIDERS: Visit Provider Family Medicine
DX: Z00.00 Encounter for general adult medical examination without abnormal findings (principal); E03.9 Hypothyroidism, unspecified; E55.9 Vitamin D deficiency, unspecified; E53.8 Deficiency of other specified B group vitamins; I10 Essential (primary) hypertension
CPT/HCPCS: 36415; 80053; 80061; 81001; 82043; 82306; 82570; 82607; 82746; 84439; 84443; 84480; 85025

== ENCOUNTER 2024-11-13 14:04 | Outpatient (REF) | payer BC, SELFPAY | END 2024-11-13 14:05 | disposition home or self-care (01) | LOC: HO.LNP 14:04 | PROVIDERS: Visit Provider Family Medicine | DX: R10.13 Epigastric pain (principal) | CPT/HCPCS: 87338 ==

== ENCOUNTER 2024-11-21 14:33 | Outpatient (AMB) | payer BC, SELFPAY ==
--- NOTE | 2024-11-21 14:44 | A.OFFPC_ITS ---
Vital Signs 11/21/24 14:50 Height 5 ft 6 in Weight 157 lb 6 oz BMI 25.4 BP 90/60 Blood Pressure Location Rt brachial Position Sitting Respiration 14 Pulse 71 Pulse Source Pulse Oximeter Temp 99.2 F Temp Source Oral Pulse Oximetry (%) 98 Oxygen Delivery Method Room Air Intake Visit Reasons: F/u CPE-labs & H pylori testing Intake Note: patient is her for a follow up on labs and h-pylori testing Buck Presser Required: No Allergies No Known Allergies Allergy (Verified 11/21/24 14:45) Medication List - Last Reconciled 11/21/24 by Vu Oconnell MD acetaminophen (Tylenol Extra Strength) 1,000 mg PO Q6H PRN famotidine 20 mg PO BID 30 days hydroxyzine HCl 25 mg PO BEDTIME PRN 90 days ondansetron 4 mg PO DAILY PRN 30 days ondansetron HCl 8 mg PO Q12H sucralfate 1 g PO BID 30 days trazodone 50 mg PO BEDTIME PRN 30 days Tobacco use date assessed: 10/20/24 Dental Screening Dental Screen Date: 10/20/24 HPI F/u CPE-labs & H pylori testing HPI Details 34 y/o female presents to f/u CPE-labs v ia telemedicine. Labs drawn 10/28/24. Reviewed labs with pt. Triglycerides 88. TC 212. LDL 135. HDL 60. TSH elevated at 4.43. Epigastric pain and has an appt. with GI. PFSH Medical History In vitro fertilization Surgical History H/O laparoscopy History of tonsillectomy H/O lateral meniscus repair of left knee Family History Maternal Grandfather Diabetes Paternal Grandmother Lung cancer Other Mental health disorder Substance abuse Social History Household Members: None Both parents involved: No Caregiver staying overnight: No Housing: Apartment Are you a primary md do resident urgent care to a significant other at home: No Do you presently have visiting nurse or other home services: No 75 years or older and lives alone: No Alcohol intake: current Alcohol intake frequency: holidays/special occasions only Alcohol type: hard liquor Patient Tobacco Use Status: Former Tobacco user e-Cigarette/Vaping Use: Never Used service: No Current occupational status: employed 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 Cognitive needs: No Hearing needs: Yes (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 systems information director) Vision needs: No Questionnaire Thrive Questionnaire Date Thrive assessed: 10/20/24 I am a: Patient What is your living situation today?: I have a steady place to live Within the past 12 months, did the food you bought not last and you didn't have the money to get more?: Never true Within the past 12 months, did you worry whether your food would run out before you got money to buy more?: Never true Do you have trouble paying for medicines?: No Do you have trouble getting transportation to medical appointments?: No Do you have trouble paying your heating and electricity bill?: No Do you have trouble taking care of your child, family member or friend?: No Do you have trouble with day-to-day activities such as bathing, preparing meals, shopping, managing finances, etc.?: No Are you currently unemployed and looking for a job?: No Are you interested in more education?: Yes Please select the resources that you would like help with: None Currently or been in a relationship where the following occur: No concerns reported THRIVE Score: 0 KANG-7 AMB Questionnaire KANG-7 Date KANG - 7 assessed: 10/20/24 Source: Developed by Drs. Jareth Hannah, Fatou Aquino, Keenan Hendricks and colleagues, with an educational keila from [employer]. Review of Systems Const Denies chills, Denies fatigue, Denies fever(s), Denies headache(s) and Denies weakness ENT Denies dizziness and Denies headache(s) Card Denies chest pain, Denies lightheadedness, Denies dyspnea and Denies other (Palpitations) Resp Denies cough, Denies dyspnea, Denies wheezing and Denies other ( shortness of breath) Musc Denies numbness and Denies tingling Neuro Denies dizziness, Denies headache(s), Denies numbness, Denies tingling, Denies paresthesias and Denies weakness Psych Denies anxiety and Denies depression Endo Denies fatigue Aller/Immun Denies wheezing Physical exam (Primary Care) Vital Signs: Last Vital Signs Temp 99.2 F 11/21/24 14:50 Pulse 71 11/21/24 14:50 Resp 14 11/21/24 14:50 BP 90/60 11/21/24 14:50 Pulse Ox 98 11/21/24 14:50 Oxygen Delivery Method Room Air 11/21/24 14:50 BMI result Body Mass Index 25.4 Tobacco/Smoking Status: Tobacco use Status Tobacco use date assessed 10/20/24 11/21/24 14:49 Patient Tobacco Use Status Former Tobacco user 11/21/24 14:49 e-Cigarette/Vaping Use Never Used 11/21/24 14:49 Thrive Assessment: Date of Thrive Assessment Date Thrive assessed 10/20/24 11/21/24 14:49 Currently or been in a relationship where the following occur: No concerns reported Const General: no acute distress and well developed Nutritional Appearance: well nourished Orientation/consciousness: patient oriented x3 HENMT Head: Yes normocephalic and Yes atraumatic Eyes General: appearance normal, both eyes and all related structures Pupils: Equal, round and reactive pupils present EOM: EOMs intact bilaterally Resp Effort & Inspection: normal respiratory effort Auscultation: clear to auscultation bilaterally Cardio Rate: regular rate Rhythm: regular rhythm Heart sounds: S1 normal heart sound present, S2 normal heart sound present, no gallops, no murmurs and no rubs Neuro General: patient oriented x3 and gait normal Cranial nerves: Yes Equal, round and reactive pupils present Psych Affect: normal affect Coding Level of Care Code Est Pt Level 3 (50315) Diagnoses Elevated LDL cholesterol level E78.00 Hypothyroidism E03.9 Epigastric pain R10.13 Assessment & Plan Assessment & Plan (1) Elevated LDL cholesterol level: Code(s): E78.00 - Pure hypercholesterolemia, unspecified Category: Medical Plan: LDL?cholesterol?has?risen Encouraged?diet?lower?in?saturated?fats?and?cholesterol (2) Hypothyroidism: Code(s): E03.9 - Hypothyroidism, unspecified Category: Medical Plan: TSH?mildly?above?normal?range Per?T4?and?T3?are?within?normal?range We?can?recheck?this?in?6?weeks (3) Epigastric pain: Code(s): R10.13 - Epigastric pain Category: Medical Plan: Controlled?with?sucralfate?and?famotidine. Avoid?trigger?foods H?pylori?test?was?negative Follow-up?with?GI; she?has?an?appointment?in?February Orders: Orders Free T4 (Free Thyroxine) Today E03.9 - Hypothyroidism, unspecified Thyroid Stimulating Hormone Today E03.9 - Hypothyroidism, unspecified Triiodothyronine T3 Total Today E03.9 - Hypothyroidism, unspecified
[2024-11-21 14:50] VITALS: BP 90/60; PULSE 71; RESP 14; TEMP 37.3; O2SAT 98; BMI 25.4
== END 2024-11-21 15:18 | disposition home or self-care (01) ==
LOC: HO.HMCFM 14:34
PROVIDERS: PCP Family Medicine; Visit Provider Family Medicine
DX: E78.00 Pure hypercholesterolemia, unspecified (principal); E03.9 Hypothyroidism, unspecified; R10.13 Epigastric pain

== ENCOUNTER 2024-12-30 08:57 | Outpatient (REF) | payer BC, SELFPAY ==
[2024-12-30 11:22] LABS: MANUAL DIFF FLAG NO
[2024-12-30 11:29] LABS: Basophils Absolute Auto 0.1 X10*3/uL (0.0-0.2); Basophils Percent Auto 0.9 % (0-2); Eosinophils Absolute Auto 0.1 X10*3/uL (0.0-0.4); Eosinophils Percent Auto 2.5 % (0-4); Hematocrit 37.5 % (37.0-47.0); Hemoglobin 12.3 g/dl (12.0-16.0); Imm Gran Abs Auto 0.04 X10*3/uL (0.00-0.03); Imm Gran Pct Auto 0.8 % (0.0-0.4); Lymphocytes Absolute Auto 1.2 X10*3/uL (1.2-4.9); Lymphocytes Percent Auto 22.9 % (20-40); Mean Corpuscular HGB Conc 32.8 g/dl (31.0-35.0); Mean Corpuscular Volume 91.5 fL (80.0-98.0); Mean Platelet Volume 11.4 fL (9.4-12.3); Monocytes Absolute Auto 0.5 X10*3/uL (0.1-1.2); Monocytes Percent Auto 10.2 % (2-11); Neutrophils Absolute Auto 3.3 x10*3/uL (2.0-8.3); Neutrophils Percent Auto 62.7 % (45-73); Platelet Count 214 X10*3/uL (160-400); Red Cell Distribution Width 12.7 % (11.0-16.0); White Blood Count 5.3 X10*3/uL (4.8-10.8)
[2024-12-30 11:34] LABS: Appearance Urine Clear; Color Urine Yellow; Glucose Urine UA Negative (Negative); Leukocyte Esterase Urine Negative (Negative); Nitrite Urine Negative (Negative); PH 7.5 (5.0-9.0); Specific Gravity - Urine 1.015 (1.005-1.025); UMIC TRIGGER UA YES; Urine Blood Trace (Negative); Urine Ketones Negative (Negative); Urine Protein Negative (Neg-Trace)
[2024-12-30 11:47] LABS: Bacteria Urine Trace (None Seen); Hyaline Casts Urine 0-2 /LPF (0-2); Squamous Epithelial Cell Urine 0-2 /HPF (0-2); WBC Urine 0-5 /HPF (0-5)
[2024-12-30 12:25] LABS: Free T4 (Free Thyroxine) 0.76 ng/dL (0.71-1.85); TSH reflex Free T4 5.46 uIU/mL (0.32-4.0); Thyroid Stimulating Hormone 5.46 uIU/mL (0.32-4.0)
[2024-12-30 12:31] LABS: Alanine Aminotransferase 32 U/L (0-31); Albumin Level 4.5 g/dL (3.5-5.0); Anion Gap 11 (12-20); Aspartate Amino Transferase 28 U/L (5-31); Bilirubin Total 0.3 mg/dL (0.0-1.0); Blood Urea Nitrogen 12 mg/dL (9-16); Calcium 9.2 mg/dL (8.4-10.2); Carbon Dioxide 23 mmol/L (22-29); Chloride 108 mmol/L (96-108); Cholesterol 221 mg/dL (<200); Estimated Glomerular Filt Rate > 60; Glucose Fasting 94 mg/dL (60-99); HDL Cholesterol 64 mg/dL (>40); LDL Cholesterol Calculated 119 mg/dL (<100); Potassium 4.1 mmol/L (3.3-5.1); Sodium 138 mmol/L (135-145); Total Protein 6.8 g/dL (6.5-8.0); Triglycerides 190 mg/dL (<150)
[2024-12-30 12:34] LABS: Creatinine Urine 54.37 mg/dL; Microalbumin Urine < 5.0 mg/L
[2024-12-30 12:41] LABS: Alkaline Phosphatase 45 U/L (39-117)
[2024-12-31 03:58] LABS: Triiodothyronine T3 Total 82 ng/dL (76-181)
== END 2024-12-30 08:58 | disposition home or self-care (01) ==
LOC: HO.WFDLDS 08:57
PROVIDERS: Visit Provider Family Medicine
DX: Z00.00 Encounter for general adult medical examination without abnormal findings (principal); I10 Essential (primary) hypertension; E03.9 Hypothyroidism, unspecified
CPT/HCPCS: 36415; 80053; 80061; 81001; 82043; 82570; 84439; 84443; 84480; 85025

== ENCOUNTER 2025-01-01 11:56 | Outpatient (AMB) | payer BC, SELFPAY ==
--- NOTE | 2025-01-01 11:52 | MHC.PC.OV ---
Intake Visit Reasons: f/u Bloodwork Sample Color Maker Required: No Allergies No Known Allergies Allergy (Verified 01/01/25 11:52) Medication List - Last Reconciled 01/01/25 by Vu Oconnell MD acetaminophen (Tylenol Extra Strength) 1,000 mg PO Q6H PRN famotidine 20 mg PO BID 30 days hydroxyzine HCl 25 mg PO BEDTIME PRN 90 days ondansetron 4 mg PO DAILY PRN 30 days sucralfate 1 g PO BID 30 days trazodone 50 mg PO BEDTIME PRN 30 days Tobacco use date assessed: 10/20/24 Dental Screening Dental Screen Date: 10/20/24 HPI f/u Bloodwork HPI Details 34 y/o female presents to f/u labs via telemedicine. Labs drawn 12/30/24. Reviewed labs with pt. Triglycerides 190. TC 221. LDL 119. HDL 64. Elevated ALT of 32. TSH elevated at 5.46. PFSH Medical History In vitro fertilization Surgical History H/O laparoscopy History of tonsillectomy H/O lateral meniscus repair of left knee Family History Maternal Grandfather Diabetes Paternal Grandmother Lung cancer Other Mental health disorder Substance abuse Social History Household Members: None Both parents involved: No Caregiver staying overnight: No Housing: Apartment Are you a primary critical care transport nurse to a significant other at home: No Do you presently have visiting nurse or other home services: No 75 years or older and lives alone: No Alcohol intake: current Alcohol intake frequency: holidays/special occasions only Alcohol type: hard liquor Patient Tobacco Use Status: Former Tobacco user e-Cigarette/Vaping Use: Never Used service: No Current occupational status: employed 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 Jareth Hannah, Fatou Aquino, Keenan Hendricks and colleagues, with an educational keila from [employer]. Review of Systems Const Denies chills, Denies fatigue, Denies fever(s), Denies headache(s) and Denies weakness ENT Denies dizziness and Denies headache(s) Card Denies dyspnea Resp Denies cough, Denies dyspnea, Denies wheezing and Denies other (shortness of breath) Musc Denies numbness and Denies tingling Neuro Denies dizziness, Denies headache(s), Denies numbness, Denies tingling and Denies weakness Psych Denies anxiety and Denies depression Endo Denies fatigue Aller/Immun Denies wheezing Physical exam (Primary Care) Tobacco/Smoking Status: Tobacco use Status Tobacco use date assessed 10/20/24 01/01/25 11:53 Patient Tobacco Use Status Former Tobacco user 01/01/25 11:53 e-Cigarette/Vaping Use Never Used 01/01/25 11:53 Thrive Assessment: Date of Thrive Assessment Date Thrive assessed 10/20/24 01/01/25 11:53 Telehealth Telehealth Telehealth Platform: Telephone Location of provider rendering services: practice address Location of patient: address on file Patient Identification confirmed using: Name, : Yes Telehealth method: voice only Patient verbally consented to treatment: Yes Patient verbally consented to billing insurance company: Yes Patient informed of any privacy concerns related to visit: Yes Minutes spent on Phone/Video with Pt.: 10 Coding Level of Care Code Tele Est Pt Level 2 (33018) Diagnoses Hypothyroidism E03.9 Elevated LDL cholesterol level E78.00 Elevated ALT measurement R74.01 Assessment & Plan Assessment & Plan (1) Hypothyroidism: Code(s): E03.9 - Hypothyroidism, unspecified Category: Medical Plan: TSH?has?risen?and?patient?says?that?she?is?noticing?symptoms?including?some?thinning?hair,?difficulty?with?weight?loss?some?fatigue Start?levothyroxine. ?Risks/benefits?discussed Recheck?labs?in?about?2?months. (2) Elevated LDL cholesterol level: Code(s): E78.00 - Pure hypercholesterolemia, unspecified Category: Medical Plan: LDL?cholesterol?has?improved Encouraged?further lifestyle?changes (3) Elevated ALT measurement: Code(s): R74.01 - Elevation of levels of liver transaminase levels Category: Medical Plan: Mild?elevation?in?ALT Hydrate?well Decreased?Tylenol?use Will?recheck?at?next?lab?draw Orders: Orders Free T4 (Free Thyroxine) Today E03.9 - Hypothyroidism, unspecified Thyroid Peroxidase Antibodies Today E03.9 - Hypothyroidism, unspecified Comprehensive Met. Panel Today R74.01 - Elevation of levels of liver transaminase levels Thyroid Stimulating Hormone Today E03.9 - Hypothyroidism, unspecified Triiodothyronine T3 Total Today E03.9 - Hypothyroidism, unspecified Medications: New levothyroxine 50 mcg PO DAILY 30 days 30 tabs 2RF
== END 2025-01-01 17:05 | disposition home or self-care (01) ==
LOC: HO.HMCFM 11:56
PROVIDERS: PCP Family Medicine; Visit Provider Family Medicine
DX: E03.9 Hypothyroidism, unspecified (principal); E78.00 Pure hypercholesterolemia, unspecified; R74.01 Elevation of levels of liver transaminase levels

== ENCOUNTER → 2025-01-01 11:56 | Outpatient (BNVA) | payer BC, SELFPAY | PROVIDERS: PCP Family Medicine; Visit Provider Family Medicine | DX: Z13.89 Encounter for screening for other disorder (principal) ==

== ENCOUNTER 2025-03-10 13:49 | Outpatient (AMB) | payer BC, SELFPAY ==
--- NOTE | 2025-03-10 13:59 | MHC.OFFVIS ---
Vital Signs 03/10/25 14:00 Height 5 ft 6 in Weight 159 lb 2.78 oz BMI 25.7 BP 110/59 L Blood Pressure Location Lt brachial Position Sitting Pulse 60 Intake Visit Reasons: epigastric pain Intake Note: New patient in office today referred for epigastric pain. CC: Patient c/o really bad indigestion even though she is taking Famotidine 20 mg BID and Sucralfate 1 g BID for 4 months. She reports that she had a negative H pylori test done a few months ago. Patient c/o constant burning sensation from chest and throat, nausea and vomiting, epigastric pain. Patient states that she had throat cancer that has been on remission for 2 years. She reports occasional constipation but she takes Senna OTC and it resolves the issue. 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 She is referred by Vu Oconnell. PMX High cholesterol GERD Hypothyroid Depression with anxiety Squamous cell carcinoma of the neck * SURGICAL HISTORY Tonsillectomy Meniscus repair left knee Laparoscopy * ALLERGIES: NKDA * [email or web address] LABS: Laboratory Tests 11/13/24 12/30/24 07:30 08:59 WBC 5.3 RBC 4.10 L Hgb 12.3 Hct 37.5 Plt Count 214 Estimated GFR > 60 Total Bilirubin 0.3 AST 28 ALT 32 H Alkaline Phosphatase 45 TSH 5.46 H Free T4 0.76 Stool H. pylori Ag negative TODAY'S VISIT oNSET A COUPLE of years ago with moderate pain that has worsened. She would burp acid at first only wiht eating spicy foods, now even water will give her HB. Her dentist has noted that her teeth seem to be effected by this. She will wake up with nocturnal GERD and choking. She will get daily pain in the epigasttrum that radiates to her back. She can not ID any exacerbating factors, at times she is ok eating pizza at times problems with water. Time of day also not definable. She has nausea at times and takes prn Zofran. She is currently on famotidine with carafate. She is bad at taking the carafate r/t the dosing and med absorption problems. No known FHX similar problems. No esophageal or stomach cancer. She has gained wt recently r/t thyoid about 20 lbs. 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 She was tx'ed at [facility]. No FHX GB proboems. Only occasional CIC. No real ongoing problems. She denies any cardiac or respiratory problems. There are no prior problems with anesthesia or sedation. There are no infectious disease problems. Return office visit in 4 weeks to evaluate how she does on the pantoprazole. She was given a good Rx card in case insurance does not covered as she has [employer] Medical History Normal physical examination, routine Laboratory exam ordered as part of routine general medical examination Screening for cervical cancer In vitro fertilization Surgical History H/O laparoscopy History of tonsillectomy H/O lateral meniscus repair of left knee Family History Maternal Grandfather Diabetes Paternal Grandmother Lung cancer Other Mental health disorder Substance abuse Social History Household Members: None Both parents involved: No Caregiver staying overnight: No Housing: Apartment Are you a primary career placement specialist to a significant other at home: No Do you presently have visiting nurse or other home services: No 75 years or older and lives alone: No Alcohol intake: current Alcohol intake frequency: holidays/special occasions only Alcohol type: hard liquor Patient Tobacco Use Status: Former Tobacco user e-Cigarette/Vaping Use: Never Used Substance Use Type: Marijuana service: No Current occupational status: employed 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 Cognitive needs: No Hearing needs: 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 (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) Vision needs: No Review of Systems Const Denies fatigue, Denies fever(s), Denies night sweats, Denies poor appetite and Denies weight loss ENT Reports Normal hearing present, Denies dental pain, Denies dysphagia, Denies hearing loss, Denies mouth pain, Denies odynophagia, Denies throat swelling, Denies tongue swelling and Reports other (Dentition adequate) Card Reports no additional complaints Resp Reports no additional complaints GI Details: Reports abdominal pain, Denies melena, Denies bloating, Denies hematochezia, Denies constipation, Denies GI cramping, Denies dysphagia, Denies excessive flatus, Denies early satiety, Reports dyspepsia, Reports heartburn, Denies diarrhea, Reports nausea, Denies odynophagia, Denies vomiting and Denies hematemesis Skin/Breast Denies pruritus, Denies lesions, Denies rash and Denies jaundice Neuro Reports Normal hearing present and Denies Abnormal speech present Endo Denies fatigue Aller/Immun Denies throat swelling and Denies tongue swelling Physical Exam Vital Signs: Last Vital Signs Pulse 60 03/10/25 14:00 BP 110/59 L 03/10/25 14:00 BMI result Body Mass Index 25.7 Const General: cooperative, no acute distress, well developed and well groomed Nutritional Appearance: average body habitus and well nourished Orientation/consciousness: oriented to person, oriented to place and oriented to time Limitations: No language barrier HEENT Head: Yes normocephalic and Yes atraumatic Eyes General: appearance normal, both eyes and all related structures Pupils: Equal, round and reactive pupils present Neck Neck: Yes normal visual inspection and Yes no lymphadenopathy Thyroid: Thyroid normal Resp Effort & Inspection: normal respiratory effort and able to speak in complete sentences Auscultation: clear to auscultation bilaterally Cardio Rate: regular rate Rhythm: regular rhythm Heart sounds: Normal, physiologic split S2 sound present Peripheral pulses: radial pulses present and posterior tibial pulses present GI Inspection: No distended and No Abdominal panniculus present Palpation (GI): Soft to palpation, Tenderness to palpation present (GI) in the epigastrum, no guarding, not rigid and No hepatosplenomegaly present Percussion: Yes normal to percussion Auscultation: normal bowel sounds Rectal Exam - Female: deferred Skin General skin exam: no rashes or lesions noted, turgor normal, skin not dry, no jaundice, No spider nevi and no striae Rashes: no rashes Nails: normal Neuro General: oriented to person, oriented to place and oriented to time Cranial nerves: Yes Equal, round and reactive pupils present and Yes Normal hearing present Speech: No Abnormal speech present Extrem General: Yes normal to inspection, No clubbing, No cyanosis and No edema Elbow/forearm/wrist images:  1. surgical scar meniscus Psych Appearance: grossly normal and well kempt Mental Status: mental status grossly normal Speech and movement: Normal speech and movement present Affect: normal affect Attitude: cooperative Thought process: Normal thought process present and not confabulating Thought content: Normal thought content present Insight: Good insight present (Psych) Judgement: Good judgement present (Psych) Assessment & Plan Assessment & Plan (1) Epigastric pain: Code(s): R10.13 - Epigastric pain Category: Medical (2) GERD (gastroesophageal reflux disease): Code(s): K21.9 - Gastro-esophageal reflux disease without esophagitis Category: Medical (3) Nausea: Code(s): R11.0 - Nausea Category: Medical (4) Dyspepsia: Code(s): R10.13 - Epigastric pain Category: Medical Plan oNSET A COUPLE of years ago with moderate pain that has worsened. She would burp acid at first only wiht eating spicy foods, now even water will give her HB. Her dentist has noted that her teeth seem to be effected by this. She will wake up with nocturnal GERD and choking. She will get daily pain in the epigasttrum that radiates to her back. She can not ID any exacerbating factors, at times she is ok eating pizza at times problems with water. Time of day also not definable. She has nausea at times and takes prn Zofran. She is currently on famotidine with carafate. She is bad at taking the carafate r/t the dosing and med absorption problems. No known FHX similar problems. No esophageal or stomach cancer. She has gained wt recently r/t thyoid about 20 lbs. 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 She was tx'ed at [facility]. No FHX GB proboems. Only occasional CIC. No real ongoing problems. She denies any cardiac or respiratory problems. There are no prior problems with anesthesia or sedation. There are no infectious disease problems. Return office visit in 4 weeks to evaluate how she does on the pantoprazole. She was given a good Rx card in case insurance does not covered as she has [employer]. Orders: Orders FL barium swallow Today K21.9 - Gastro-esophageal reflux disease without esophagitis, R10.13 - Epigastric pain EGD - GI Use Only Today K21.9 - Gastro-esophageal reflux disease without esophagitis, R10.13 - Epigastric pain Medications: New pantoprazole (Protonix) 40 mg PO DAILY 30 tabs 6RF 30 days K21.9 - Gastro-esophageal reflux disease without esophagitis, R10.13 - Epigastric pain Discontinued famotidine Discontinued Reason: Doctor's Order 20 mg PO BID 30 days 60 tabs 0RF On Hold sucralfate Hold Comment: Doctor's Order 1 g PO BID 30 days 60 tabs 0RF Coding Level of Care Code New Pt Level 3 (04811) Diagnoses Epigastric pain R10.13 GERD (gastroesophageal reflux disease) K21.9 Nausea R11.0 Dyspepsia R10.13
[2025-03-10 14:00] VITALS: BP 110/59; PULSE 60; BMI 25.7
--- OUTSIDE RECORDS SUMMARY | 2025-03-10 15:02 | XMS_ITS | Encounter Summary ---
Author Organization [facility] Address [address] [place] [address] Phone Care Team Providers Care Rn Hemo Dialysis Name Role Phone Vu Oconnell MD Primary Care Provider Self-Referred, Patient Unavailable Unavailab Ghassan Grayson MD, PhD Unavailable + [phone] Satya Jiang RN Unavailable [facility] [email or web address] Ivana Schuster RN Unavailable JOSE ANTONIO [email or web address] Fawn Baker RN Unavailable [place] [email or web address] Jareth Becker MD Unavailable [phone] Dante Lara MD, DMD Unavailable [phone] Lori Ayala RN Unavailable Encounter Details Date Type Department Care Team (Late st Contact Info) Description 03/29/2023 Procedure Pass [facility] [address] [place] [address] Social History Tobacco Use Types Packs/Day Years Used Date Smoking Tobacco: Former Cigarettes Q uit: 07/25/2022 Smokeless Tobacco: Never Alcohol Use Standard Drinks/Week Comments Not Currently 0 (1 standard drink = 0.6 oz pur e alcohol) Education Answer Date Recorded Are you interested in more education? Not on milena e 12/15/2022 Are you concerned about learning? Not on file 12/15/2022 No 12/15/2022 No 12/15/2022 Digital Access Answer Date Recorded No 01/10/2023 No 01/10/2023 Reliable internet access at home? Not on file 01/10/2023 Device with a working camera? Not on file Intimate Partner Violence Answer Date R ecorded Are you denied basic needs s uch as food, clothing, or medical care? No 09/26/2022 In the past 12 months have y ou been in a relationship with a person who hurts, threatens, or tries to control you? No 09/26/2022 Are you denied basic needs s uch as food, clothing, or medical care? No 09/26/2022 In the past 12 months have y ou been in a relationship with a person who hurts, threatens, or tries to control you? No 09/26/2022 Comments No Sex and Gender Information Value Date Recorded Sex Assigned at Female 08/11/2022 2:59 PM EST Legal Sex Female 2:50 PM EST Gender Identity Female 08/11/2022 2:59 PM EST Sexual Orientation Straight 08/11/2022 2: 59 PM EST documented as of this encounter Plan of Treatment Upcoming Encounters Date Type Department Care Team (Late st Contact Info) Description 06/18/2025 8:30 AM EDT Blood Draw Laboratory Services, [address], 2nd [place] [address] Yang Pittman MD [address] [place] [phone] [email or web address] 06/18/2025 9:15 AM EDT [facility], [address], [address] [place] [address] Dante Lara MD, [address] [address] [email or web address] 06/18/2025 9:30 AM EDT Office Visit [facility], [facility] [place] [address] [facility], 11th [place] [address] Dante Lara MD, DMD [address] [place] [phone] [email or web address] Jareth Ceron MD [address] [place] [phone] [email or web address] documented as of this encounter Visit Diagnoses Not on filedocumented in this encounter Care Teams Rn Hemo Dialysis Relationship Specialty Start Date End Date Vu Oconnell MD [address] [place] [phone] PCP - General Family Medicine 08/11/22 Self-Referred, Patient 08/11/22 Ghassan Martinez MD, PhD [address] [place] [phone] [email or web address] Radiation Oncology 08/29/22 Satya Jiang, WISAM [address] [place] [address] [email or web address] Primary Infusion Nurse 09/28/22 11/25/23 Ivana Schuster, WISAM [address] [place] [phone] [email or web address] Associate Infusion Nurse 09/28/22 Fawn Baker, WISAM [address] [place] [address] [email or web address] Primary Infusion Nurse 09/28/22 Jareth Becker MD [address] [place] [phone] [email or web address] Primary Oncologist Medical Oncology 09/27/23 Dante Lara MD, DMD [address] [place] [address] [phone] [email or web address] Surgeon Otolaryngology 09/27/23 Lori Ayala RN [address] [place] [address] [email or web address] Associate Infusion Nurse 10/19/21 documented as of this encounter Additional Source Comments The information contained in this document represents components of the legal health record. It is not the complete legal health record.[facility]
== END 2025-03-10 15:28 | disposition home or self-care (01) ==
LOC: HO.HGI 13:50
PROVIDERS: PCP Family Medicine; Visit Provider Nurse Practitioner
DX: R10.13 Epigastric pain (principal); K21.9 Gastro-esophageal reflux disease without esophagitis; R11.0 Nausea
CPT/HCPCS: 99203

== ENCOUNTER 2025-04-09 13:36 | Outpatient (AMB) | payer BC, SELFPAY ==
--- OUTSIDE RECORDS SUMMARY | 2025-04-09 13:45 | XMS_ITS | Encounter Summary ---
Author Organization [facility] Address [address] [place] [address] Phone Care Team Providers Care Insurance Defense Paralegal Name Role Phone Vu Oconnell MD Primary Care Provider Self-Referred, Patient Unavailable Unavailab Ghassan Grayson MD, PhD Unavailable + [phone] Satya Jiang RN Unavailable [facility] [email or web address] Ivana Schuster RN Unavailable JOSE ANTONIO [email or web address] Fawn Baker RN Unavailable [place] [email or web address] Jareth Becker MD Unavailable [phone] Dante Lara MD, DMD Unavailable [phone] Lori Ayala RN Unavailable Encounter Details Date Type Department Care Team (Late st Contact Info) Description 03/29/2023 Procedure Pass [facility] [address] [place] [address] Social History Tobacco Use Types Packs/Day Years [...] 8:30 AM EDT Blood Draw Laboratory Services, [address], [address]nd [place] [address] Yang Pittman MD [address] [place] [phone] [email or web address] 06/18/2025 9:15 AM EDT Office Visit [facility], [address] [place] [address] Dante Lara MD, [address] [address] [email or web address] 06/18/2025 9:30 AM EDT Office Visit [facility], [facility] [place] [address] [facility], 11th [place] [address] Dante Lara MD, DMD [address] [place] [phone] [email or web address] Jareth Ceron MD [address] [place] [phone] [email or web address] documented as of this encounter Visit Diagnoses Not on filedocumented in this encounter Care Teams Insurance Defense Paralegal Relationship Specialty Start Date End Date Vu Oconnell MD [address] [place] [phone] PCP - General Family Medicine 08/11/22 Self-Referred, Patient 08/11/22 Ghassan Martinez MD, PhD [address] [place] [phone] [email or web address] Radiation Oncology 08/29/22 Satya Jiang, WISAM [address] [place] [address] [email or web address] Primary Infusion Nurse 09/28/22 11/25/23 Ivana Schuster, WISAM [address] [place] [phone] [email or web address] Associate Infusion Nurse 09/28/22 Fawn Baker, WISAM [address] [place] [address] [email or web address] Primary Infusion Nurse 09/28/22 Jareth Becker MD [address] [place] [phone] [email or web address] Primary Oncologist Medical Oncology 09/27/23 Dante Lara MD, DMD [address] [place] [address] [phone] [email or web address] u Surgeon Otolaryngology 09/27/23 Lori Ayala RN [address] [place] [address] [email or web address] Associate Infusion Nurse 10/19/21 documented as of this encounter Additional Source Comments The information contained in this document represents components of the legal health record. It is not the complete legal health record.[facility]
[2025-04-09 13:55] VITALS: BP 110/54; PULSE 66; O2SAT 96; BMI 26.0
--- NOTE | 2025-04-09 13:55 | MHC.OFFVIS ---
Vital Signs 04/09/25 13:55 Height 5 ft 6 in Weight 161 lb BMI 26.0 BP 110/54 L Blood Pressure Location Rt brachial Position Sitting Pulse 66 Pulse Source Pulse Oximeter Pulse Oximetry (%) 96 Oxygen Delivery Method Room Air Intake Visit Reasons: EPi pain, GERD Intake Note: Est pt for mgmt of epigastric pain + GERD. CC: Pt reports that she has stopped the famotidine and the sucralfate, still taking PPI at this time which she confirms works OK for her. No changes since last visit. Production Stage Manager Required: No Accompanied by: Self / Same As Patient Allergies No Known Allergies Allergy (Verified 04/09/25 13:55) HPI HPI EPi pain, GERD: Details: Assessment & Plan (1) Epigastric pain: Code(s): R10.13 - Epigastric pain Category: Medical (2) GERD (gastroesophageal reflux disease): Code(s): K21.9 - Gastro-esophageal reflux disease without esophagitis Category: Medical (3) Nausea: Code(s): R11.0 - Nausea Category: Medical (4) Dyspepsia: Code(s): R10.13 - Epigastric pain Category: Medical Plan oNSET A COUPLE of years ago with moderate pain that has worsened. She would burp acid at first only wiht eating spicy foods, now even water will give her HB. Her dentist has noted that her teeth seem to be effected by this. She will wake up with nocturnal GERD and choking. She will get daily pain in the epigasttrum that radiates to her back. She can not ID any exacerbating factors, at times she is ok eating pizza at times problems with water. Time of day also not definable. She has nausea at times and takes prn Zofran. She is currently on famotidine with carafate. She is bad at taking the carafate r/t the dosing and med absorption problems. No known FHX similar problems. No esophageal or stomach cancer. She has gained wt recently r/t thyoid about 20 lbs. 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 She was tx'ed at [facility]. No FHX GB problems. Only occasional CIC. No real ongoing problems. She denies any cardiac or respiratory problems. There are no prior problems with anesthesia or sedation. There are no infectious disease problems. Return office visit in 4 weeks to evaluate how she does on the pantoprazole. She was given a good Rx card in case insurance does not covered as she has [employer]. Orders: Orders [place] barium swallow Today K21.9 - Gastro-esophageal reflux disease without esophagitis, R10.13 - Epigastric pain EGD - GI Use Only Today K21.9 - Gastro-esophageal reflux disease without esophagitis, R10.13 - Epigastric pain Medications: New pantoprazole (Protonix) 40 mg PO DAILY 30 tabs 6RF 30 days K21.9 - Gastro-esophageal reflux disease without esophagitis, R10.13 - Epigastric pain Discontinued famotidine Discontinued Reason: Doctor's Order 20 mg PO BID 30 days 60 tabs 0RF On Hold sucralfate Hold Comment: Doctor's Order 1 g PO BID 30 days 60 tabs 0RF Barium swallow 07/03/2025 EGD Biopsy TODAY'S VISIT [facility] Medical History Normal physical examination, routine Laboratory exam ordered as part of routine general medical examination Screening for cervical cancer In vitro fertilization Surgical History H/O laparoscopy History of tonsillectomy H/O lateral meniscus repair of left knee Family History Maternal Grandfather Diabetes Paternal Grandmother Lung cancer Other Mental health disorder Substance abuse Social History Household Members: None Both parents involved: No Caregiver staying overnight: No Housing: Apartment Are you a primary customer care coordinator to a significant other at home: No Do you presently have visiting nurse or other home services: No 75 years or older and lives alone: No Alcohol intake: current Alcohol intake frequency: holidays/special occasions only Alcohol type: hard liquor Patient Tobacco Use Status: Former Tobacco user e-Cigarette/Vaping Use: Never Used Substance Use Type: Marijuana service: No Current occupational status: employed 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 Cognitive needs: No Hearing needs: Yes (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 assembly detailer) Vision needs: No Review of Systems Const Denies fatigue, Denies fever(s), Denies night sweats, Denies poor appetite and Denies weight loss ENT Reports Normal hearing present, Denies dental pain, Denies dysphagia, Denies hearing loss, Denies mouth pain, Denies odynophagia, Denies throat swelling, Denies tongue swelling and Reports other (Dentition adequate) Card Reports no additional complaints Resp Reports no additional complaints GI Details: Reports abdominal pain, Denies melena, Denies bloating, Denies hematochezia, Denies constipation, Denies GI cramping, Denies dysphagia, Denies excessive flatus, Denies early satiety, Reports heartburn, Denies diarrhea, Denies nausea, Denies odynophagia, Denies vomiting and Denies hematemesis Skin/Breast Denies pruritus, Denies lesions, Denies rash and Denies jaundice Neuro Reports Normal hearing present and Denies Abnormal speech present Endo Denies fatigue Aller/Immun Denies throat swelling and Denies tongue swelling Physical Exam Vital Signs: Last Vital Signs Pulse 66 04/09/25 13:55 BP 110/54 L 04/09/25 13:55 Pulse Ox 96 04/09/25 13:55 Oxygen Delivery Method Room Air 04/09/25 13:55 BMI result Body Mass Index 26.0 Const General: cooperative, no acute distress, well developed and well groomed Nutritional Appearance: average body habitus and well nourished Orientation/consciousness: oriented to person, oriented to place and oriented to time Limitations: No language barrier HEENT Head: Yes normocephalic and Yes atraumatic Eyes General: appearance normal, both eyes and all related structures Pupils: Equal, round and reactive pupils present Neck Neck: Yes normal visual inspection and Yes no lymphadenopathy Thyroid: Thyroid normal Resp Effort & Inspection: normal respiratory effort and able to speak in complete sentences Auscultation: clear to auscultation bilaterally Cardio Rate: regular rate Rhythm: regular rhythm Heart sounds: Normal, physiologic split S2 sound present Peripheral pulses: radial pulses present and posterior tibial pulses present GI Inspection: No distended and No Abdominal panniculus present Palpation (GI): Soft to palpation, nontender, no guarding, not rigid and No hepatosplenomegaly present Percussion: Yes normal to percussion Auscultation: normal bowel sounds Rectal Exam - Female: deferred Skin General skin exam: no rashes or lesions noted, turgor normal, skin not dry, no jaundice, No spider nevi and no striae Rashes: no rashes Nails: normal Neuro General: oriented to person, oriented to place and oriented to time Cranial nerves: Yes Equal, round and reactive pupils present and Yes Normal hearing present Speech: No Abnormal speech present Extrem General: Yes normal to inspection, No clubbing, No cyanosis and No edema Psych Appearance: grossly normal and well kempt Mental Status: mental status grossly normal Speech and movement: Normal speech and movement present Affect: normal affect Attitude: cooperative Thought process: Normal thought process present and not confabulating Thought content: Normal thought content present Insight: Good insight present (Psych) Judgement: Good judgement present (Psych) Assessment & Plan Assessment & Plan (1) Epigastric pain: Code(s): R10.13 - Epigastric pain Category: Medical (2) GERD (gastroesophageal reflux disease): Code(s): K21.9 - Gastro-esophageal reflux disease without esophagitis Category: Medical Plan - The patient is a 34-year-old female presenting with symptoms consistent with GERD. - Reports symptomatic relief with current use of pantoprazole, notably no nocturnal awakenings and tolerance of spicy foods. - Constipation was associated with previous medications, famotidine and sucralfate, both of which have been halted. - Management includes thyroid medication, taken several hours apart from the pantoprazole to avoid absorption interference. - Upcoming diagnostic evaluations include a barium swallow test scheduled for July 03. The patient has not reported any specific dietary restrictions or allergies. The current regimen allows for spicy food consumption without discomfort due to effective management of GERD with pantoprazole. The patient is taking thyroid medication in the morning to ensure proper absorption and pantoprazole in the evening, aligning with current dietary practices. Next appointment after barium swallow and we also still have an EGD pending. Medications: Refilled pantoprazole (Protonix) 40 mg PO DAILY 30 tabs 6RF 30 days K21.9 - Gastro-esophageal reflux disease without esophagitis, R10.13 - Epigastric pain Coding Level of Care Code Est Pt Level 3 (55330) Diagnoses Epigastric pain R10.13 GERD (gastroesophageal reflux disease) K21.9
== END 2025-04-09 14:43 | disposition home or self-care (01) ==
LOC: HO.HGI 13:37
PROVIDERS: PCP Family Medicine; Visit Provider Nurse Practitioner
DX: R10.13 Epigastric pain (principal); K21.9 Gastro-esophageal reflux disease without esophagitis
CPT/HCPCS: 99213

== ENCOUNTER 2025-04-28 09:35 | Outpatient (REF) | payer BC, SELFPAY ==
--- OUTSIDE RECORDS SUMMARY | 2025-04-28 11:05 | XMS_ITS | Encounter Summary ---
Author Organization [facility] Address [address] [place] [address] Phone Care Team Providers Care Mailing Clerk Name Role Phone Vu Oconnell MD Primary Care Provider Self-Referred, Patient Unavailable Unavailab Ghassan Grayson MD, PhD Unavailable + [phone] Satya Jiang RN Unavailable [facility] [email or web address] Ivana Schuster RN Unavailable JOSE ANTONIO [email or web address] Fawn Baker RN Unavailable [place] [email or web address] Jareth Becker MD Unavailable [phone] Dante Lara MD, DMD Unavailable [phone] Lori Ayala RN Unavailable Encounter Details Date Type Department Care Team (Late st Contact Info) Description 03/29/2023 Procedure Pass [facility] [address] [place] [address] Social History Tobacco Use Types Packs/Day Years [...] 8:30 AM EDT Blood Draw Laboratory Services, [address], [address]nd [place] [address] Yang Pittman MD [address] [place] [phone] [email or web address] 06/18/2025 9:15 AM EDT Office Visit [facility], [address] [place] [address] Dante Lara MD, [address] [address] [email or web address] 06/18/2025 9:30 AM EDT Office Visit [facility], [facility] [place] [address] [facility], 11th [place] [address] Dante Lara MD, DMD [address] [place] [phone] [email or web address]. Jareth Ceron MD [address] [place] [phone] [email or web address] documented as of this encounter Visit Diagnoses Not on filedocumented in this encounter Care Teams Mailing Clerk Relationship Specialty Start Date End Date Vu Oconnell MD [address] [place] [phone] PCP - General Family Medicine 08/11/22 Self-Referred, Patient 08/11/22 Ghassan Martinez MD, PhD [address] [place] [phone] [email or web address] Radiation Oncology 08/29/22 Satya Jiang, WISAM [address] [place] [address] [email or web address] Primary Infusion Nurse 09/28/22 11/25/23 Ivana Schuster, WISAM [address] [place] [phone] [email or web address] Associate Infusion Nurse 09/28/22 Fawn Baker, WISAM [address] [place] [address] [email or web address] Primary Infusion Nurse 09/28/22 Jareth Becker MD [address] [place] [address] [phone] [email or web address] Primary Oncologist Medical Oncology 09/27/23 Dante Lara MD, DMD [address] [place] [address] [phone] [email or web address] u Surgeon Otolaryngology 09/27/23 Lori Ayala RN [address] [place] [address] [email or web address] Associate Infusion Nurse 10/19/21 documented as of this encounter Additional Source Comments The information contained in this document represents components of the legal health record. It is not the complete legal health record.[facility]
--- OUTSIDE RECORDS SUMMARY | 2025-04-28 11:05 | XMS_ITS | Encounter Summary ---
Author Organization [facility] Address [address] [facility] [address] [place] [address] Phone Care Team Providers Care Event Sales Representative Name Role Phone Vu Oconnell MD Primary Care Provider Self-Referred, Patient Unavailable Unavailab Ghassan Grayson MD, PhD Unavailable + [phone] Satya Jiang RN Unavailable [facility] [email or web address] Ivana Schuster RN Unavailable JOSE ANTONIO [email or web address] Fawn Baker RN Unavailable [place] [email or web address] Jareth Becker MD Unavailable [phone] Dante Lara MD, DMD Unavailable +[phone] Lori Ayala RN Unavailable Encounter Details Date Type Department Care Team (Late st Contact Info) Description 09/14/2022 Procedure Pass [facility] [place] [place] [address] [facility], Floor [address] [place] [address] Social History Tobacco Use Types Packs/Day Years Used Date Smoking Tobacco: Former Cigarettes Q uit: 07/25/2022 Smokeless Tobacco: Never Alcohol Use Standard Drinks/Week Comments Not Currently 0 (1 standard drink = 0.6 oz pur e alcohol) Comments No Sex and Gender Information Value [...] 8:30 AM EDT Blood Draw Laboratory Services, [address], 2nd [place] [address] Yang Pittman MD [address] [place] [address] [phone] [email or web address] 06/18/2025 9:15 AM EDT Office [facility], [address], [address] [place] [phone] Dante Lara MD, DMD [address] [place] [phone] [email or web address] 06/18/2025 9:30 AM EDT Office [facility], [address], [address] [place] [phone] Dante Lara MD, DMD [address] [place] [address] [email or web address] Jareth Ceron MD [address] [place] [address] [phone] [email or web address] documented as of this encounter Visit Diagnoses Not on filedocumented in this encounter Additional Health Concerns Infection Onset Date Last Indicated Resolved Time COVID-19 Comment:Sx onset 12/25/22 Test 12/27/22 12/25/2022 12/27/2022 01/14/2023 1:21 AM E DT documented as of this encounter Care Teams Event Sales Representative Relationship Specialty Start Date End Date Vu Oconnell MD [address] [place] [phone] PCP - General Family Medicine 08/11/22 Self-Referred, Patient 08/11/22 Ghassan Martinez MD, PhD [address] [place] [address] [email or web address] Radiation Oncology 08/29/22 Satya Jiang, WISAM [address] [place] [phone] [email or web address] Primary Infusion Nurse 09/28/22 11/25/23 Ivana Schuster RN [address] [place] [address] [email or web address] Associate Infusion Nurse 09/28/22 Fawn Baker, RN [address] [place] [phone] [email or web address] Primary Infusion Nurse 09/28/22 Jareth Becker MD [address] [place] [phone] [email or web address] Primary Oncologist Medical Oncology 09/27/23 Dante Lara MD, DMD [address] [place] [phone] [email or web address] Surgeon Otolaryngology 09/27/23 Lori Ayala RN [address] [place] [phone] [email or web address] Associate Infusion Nurse 10/19/21 documented as of this encounter Additional Source Comments The information contained in this document represents components of the legal health record. It is not the complete legal health record.[facility]
--- OUTSIDE RECORDS SUMMARY | 2025-04-28 11:05 | XMS_ITS | Encounter Summary ---
Author Organization [facility] Address [address] [facility] [address] [place] [address] Phone Care Team Providers Care Rural Carrier Name Role Phone Vu Oconnell MD Primary Care Provider Self-Referred, Patient Unavailable Unavailab Ghassan Grayson MD, PhD Unavailable + [phone] Satya Jiang RN Unavailable [facility] [email or web address] Ivana Schuster RN Unavailable JOSE ANTONIO [email or web address] Fawn Baker RN Unavailable [place] [email or web address] Jareth Becker MD Unavailable [phone] Dante Lara MD, DMD Unavailable [phone] Lori Ayala RN Unavailable Encounter Details Date Type Department Care Team (Late st Contact Info) Description 2023 Procedure Pass [facility] MR Imaging, [place] [address] [place] [address] Social History Tobacco Use Types Packs/Day Years [...] 8:30 AM EDT Blood Draw Laboratory Services, [address], [address]nd [place] [address] Yang Pittman MD [address] [place] [address] [phone] [email or web address] 06/18/2025 9:15 AM EDT Office Visit [facility], [address], [address] [place] [address] Dante Lara MD, [address] [phone] [email or web address] 06/18/2025 9:30 AM EDT Office Visit [facility], [facility] [place] [address] [facility], 11th [place] [address] Dante Lara MD, DMD [address] [place] [phone] [email or web address] Jareth Ceron MD [address] [place] [phone] [email or web address] documented as of this encounter Visit Diagnoses Not on filedocumented in this encounter Care Teams Rural Carrier Relationship Specialty Start Date End Date Vu Oconnell MD [address] [place] [phone] PCP - General Family Medicine 08/11/22 Self-Referred, Patient 08/11/22 Ghassan Martinez MD, PhD [address] [place] [phone] [email or web address] Radiation Oncology 08/29/22 Satya Jiang, WISAM [address] [place] [address] [email or web address] Primary Infusion Nurse 09/28/22 11/25/23 Ivana Schuster, WISAM [address] [place] [phone] [email or web address] Associate Infusion Nurse 09/28/22 Fawn Baker, WISAM [address] [place] [address] [email or web address] Primary Infusion Nurse 09/28/22 Jareth Becker MD [address] [place] [address] [phone] [email or web address] Primary Oncologist Medical Oncology 09/27/23 Dante Lara MD, DMD [address] [place] [address] [phone] [email or web address] Surgeon Otolaryngology 09/27/23 Lori Ayala RN [address] [place] [address] [email or web address] Associate Infusion Nurse 10/19/21 documented as of this encounter Additional Source Comments The information contained in this document represents components of the legal health record. It is not the complete legal health record.[facility]
--- OUTSIDE RECORDS SUMMARY | 2025-04-28 11:05 | XMS_ITS ---
Author Organization [facility] Address [address] [facility] [address] [place] [address] Phone Care Team Providers Care Outside Dealer Sales Representative Name Role Phone Vu Oconnell MD Primary Care Provider Self-Referred, Patient Unavailable Unavailab Ghassan Grayson MD, PhD Unavailable [phone] Ivana Schuster RN Unavailable JOSE ANTONIO [email or web address] Fawn Baker RN Unavailable [place] [email or web address] Jareth Becker MD Unavailable [phone] Dante Lara MD, DMD Unavailable [phone] Lori Ayala RN Unavailable Active Problems Problem Noted Date Diagnosed Date 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 I provided an opioid prescription with a notation that it can be filled at a lower amount. I discussed with the patient regarding the quantity of the opioid prescribed and the option to fill the prescription in a lesser quantity. I also discussed the risks associated with the opioid prescribed. Prior to prescribing the opioid, I utilized the [facility] Prescription Awareness Tool (TempMine) website to review previous prescriptions. Assessment & Plan (09/22/2022 4:01 PM EST): Short acting Oxycodone working well but she does not get relief through the night, causing her to wake in pain and not get a full night sleep. We discussed adding a long-acting regimen at night and she agrees with this plan. Short acting pain medications: Oxycodone 5 mg every 4 hours PRN Cancer pain and Acetaminophen 1000 mg three times a day as needed Long acting pain medications: Oxycontin 10 mg qHS Non-opiate alternatives were considered and deemed not appropriate or inadequate and a longer than 7 day prescription is justified. I provided an opioid prescription with a notation that it can be filled at a lower amount. I discussed with the patient regarding the quantity of the opioid prescribed and the option to fill the prescription in a lesser quantity. I also discussed the risks associated with the opioid prescribed. Prior to prescribing the opioid, I utilized the [facility] Prescription Awareness Tool (TempMine) website to review previous prescriptions. 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 Will continue to monitor o ]Continue metoprolol to manage cardiac symptoms of hyperthyroidism Oral Care / Dental Hygiene: Oral rinses as indicated Nutritional Support: Tolerating a full diet. Weight is stable. DRILLING MACHINE RUNNER Support: Ongoing Emotional: Coping well Assessment & Plan (02/01/2023 10:17 PM EDT): Treatment: Bolus Cisplatin + XRT o Although still symptomatic and TSH remains suppressed, her FT4 is back down to normal. Will continue to monitor. o Continue metoprolol to manage cardiac symptoms of hyperthyroidism Oral Care / Dental Hygiene: Oral rinses as indicated Nutritional Support: Tolerating a full diet. Weight is stable. 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 Greene who recommended starting Metoprolol for symptomatic palpitations. o Ativan as needed for anxiety o Metoclopramide as needed for migraine symptoms Oral Care / Dental Hygiene: Oral rinses as indicated Nutritional Support: Tolerating full oral diet. Weight is down. DRILLING MACHINE RUNNER Support: Ongoing Emotional: Coping well Assessment & Plan (12/01/2022 4:34 PM EDT): Treatment: Bolus Cisplatin + XRT o Already making an excellent recovery from treatment o Ongoing tinnitus and hearing loss. Will monitor for now, but she understands this is likely to be permanent. o Labs today are hemolyzed, she is anxious about getting drawn again so I provided a lab slip for her to get them done locally next week. Oral Care / Dental Hygiene: Oral rinses as indicated Nutritional Support: Tolerating full oral diet. Weight is stable. DRILLING MACHINE RUNNER Support: Ongoing Emotional: Coping well Assessment & Plan (11/08/2022 9:47 PM EDT): Treatment: Bolus Cisplatin + XRT o Discussed with Dr. Becker, will hold cycle 3 cisplatin due to ototoxicity o Does not need hydration today o HPV ctDNA results pending Nausea Management: Metoclopramide, Ondansetron, Dexamethasone and Lorazepam Bowel Regimen: Colace, Senna and Miralax Oral Care / Dental Hygiene: Oral rinses as indicated Nutritional Support: Tolerating full oral diet. Weight is stable. DRILLING MACHINE RUNNER Support: Ongoing Emotional: Coping well Assessment & Plan (11/02/2022 5:29 PM EDT): Treatment: Bolus Cisplatin + XRT o Does not need hydration today o HPV ctDNA results pending o May adjust chemo dosing or even hold C3 depending on how her hearing improves over the next week. o Apply Aquaphor to neck for XRT dermatitis. Given kerlex to wrap her neck overnight. Nausea Management: Metoclopramide, Ondansetron, Dexamethasone and Lorazepam Bowel Regimen: Colace, Senna and Miralax Oral Care / Dental Hygiene: Oral rinses as indicated Nutritional Support: Tolerating full oral diet. Weight is stable. 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 Weight is down. 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 Discussed with Dr. Becker who agrees with continuing on Bolus Cisplatin and we will consider dose adjustments as needed at cycle 3. o Return tomorrow for day 2 hydration o Will hydrate on after her CT scan to minimize risk of contrast induced nephritis and again on Sunday. o Monitor for recurrent migraines. She knows to let us know if she starts having these again as we can start medications to help control/manage this. o She is asking if her lupron shot will function as control. I have asked her to contact the onco-fertility group to discuss this. Pain Management: Acetaminophen, Oxycodone and Oxycontin Nausea Management: Metoclopramide, Ondansetron, Dexamethasone and Lorazepam Bowel Regimen: Colace, Senna and Miralax Oral Care / Dental Hygiene: Oral rinses as indicated Nutritional Support: Tolerating full oral diet. DRILLING MACHINE RUNNER Support: Ongoing Emotional: Coping well Assessment & Plan (09/28/2022 4:52 PM EST): Treatment: Bolus Cisplatin + XRT o OK to start treatment today: C1 o Return tomorrow for day 2 hydration o Depot Lupron per fertility team to minimize risk to ovarian function during treatment o Continue Augmentin for another week Pain Management: Acetaminophen, Oxycodone and Oxycontin Nausea Management: Metoclopramide, Ondansetron, Dexamethasone and Lorazepam Bowel Regimen: Colace, Senna and Miralax Oral Care / Dental Hygiene: Oral rinses as indicated Nutritional Support: Tolerating full oral diet. 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 This is expected to be completed by Sunday. o Her pain has stabilized since starting Augmentin. She will complete the prescribed 7 day course. o Encouraged to call with fever >100.4 or increasing pain or redness at the neck mass. Current Treatment and Therapy Plans No current plan information found. Past Treatment and Therapy Plans Oncology Therapy Plan Plan Name Start Date Discontinue Date Treatment Medications Discontinue Reason Plan Provider HYDRATION & SUPPORTIVE CARE 10/19/2022 11/20/2023 No medications scheduled. a. Therapy Complete Rudolph Mckinney, TEACHING MANAGER TREATMENT PLAN Plan Name Start Date Discontinue Date Treatment Medications Discontinue Reason Plan Provider Cycles CISPLATIN 100 MG/M2 09/28/2022 12/01/2022 CISplatin (PLATINOL) IVPB QS 1200 mL Bag a. Therapy Complete Jareth Becker MD 2 of 3 cycles started Radiation Treatments * Course C1 09/28/2022 - 11/17/2022 Treatment Period Energy Fraction Dose Fractions Total Dose Plans Planned A1_UNKNPRInew 10/26/2022 - 11/17/2022 200 cGy 16 / 16 3,200 cGy A1_UNKNPRIBNK 09/28/2022 - 10/25/2022 200 cGy 35 7,000 cGy Reference Points Delivered A_UNKN_PRI_B_NK 09/28/2022 - 11/17/2022 7,000 cGy Resolved Problems Problem Noted Date Diagnosed Date Resolved Date Tonsil asymmetry 08/25/2022 10/24/2022
--- OUTSIDE RECORDS SUMMARY | 2025-04-28 11:05 | XMS_ITS | Encounter Summary ---
Author Organization [facility] Address [address] [facility] [address] [place] [phone] Phone Care Team Providers Care Barrel Brander Name Role Phone Vu Oconnell MD Primary Care Provider Self-Referred, Patient Unavailable Unavailab Ghassan Grayson MD, PhD Unavailable + [phone] Satya Jiang RN Unavailable [facility] [email or web address] Ivana Schuster RN Unavailable JOSE ANTONIO [email or web address] Fawn Baker RN Unavailable [place] [email or web address] Jareth Becker MD Unavailable [phone] Dante Lara MD, DMD Unavailable [phone] Lori Ayala RN Unavailable Encounter Details Date Type Department Care Team (Late st Contact Info) Description 12/01/2022 Procedure Pass Cassandra Lank Imaging Department, [facility] [place], PET/CT [address] [place] [address] Social History Tobacco Use Types Packs/Day Years Used Date Smoking Tobacco: Former Cigarettes Q uit: 07/25/2022 Smokeless Tobacco: Never Alcohol Use Standard Drinks/Week Comments Not Currently 0 (1 standard drink = 0.6 oz pur e alcohol) Intimate Partner Violence Answer Date R ecorded [...] 8:30 AM EDT Blood Draw Laboratory Services, [address], [address] [place] [address] Yang Pittman MD [address] [place] [phone] [email or web address] 06/18/2025 9:15 AM EDT Office Visit [facility], [address], [address] [place] [phone] Dante Lara MD, DMD [address] [place] [phone] [email or web address] 06/18/2025 9:30 AM EDT Office Visit [facility], [address], [address] [place] [phone] Dante Lara MD, DMD [address] [place] [phone] [email or web address] Jareth Ceron MD [address] [place] [phone] [email or web address] documented as of this encounter Visit Diagnoses Not on filedocumented in this encounter Additional Health Concerns Infection Onset Date Last Indicated Resolved Time COVID-19 Comment:Sx onset 12/25/22 Test 12/27/22 12/25/2022 12/27/2022 01/14/2023 1:21 AM E DT documented as of this encounter Care Teams Barrel Brander Relationship Specialty Start Date End Date Vu Oconnell MD [address] [place] [address] PCP - General Family Medicine 08/11/22 Self-Referred, Patient 08/11/22 Ghassan Martinez MD, PhD [address] [place] [phone] [email or web address] Radiation Oncology 08/29/22 Satya Jiang, WISAM [address] [place] [phone] [email or web address] Primary Infusion Nurse 09/28/22 11/25/23 Ivana Schuster, WISAM [address] [place] [address] [email or web address] Associate Infusion Nurse 09/28/22 Fawn Baker, WISAM [address] [place] [address] Candida@[email or web address] Primary Infusion Nurse 09/28/22 Jareth Becker MD [address] [place] [address] [phone] [email or web address] Primary Oncologist Medical Oncology 09/27/23 Dante Lara MD, DMD [address] [place] [address] [phone] [email or web address] Surgeon Otolaryngology 09/27/23 Lori Ayala RN [address] [place] [phone] [email or web address] Associate Infusion Nurse 10/19/21 documented as of this encounter Additional Source Comments The information contained in this document represents components of the legal health record. It is not the complete legal health record.[facility]
--- OUTSIDE RECORDS SUMMARY | 2025-04-28 11:05 | XMS_ITS | Encounter Summary ---
Author Organization [facility] Address [address] [place] [address] [place] [address] Phone Care Team Providers Care Die Designer Name Role Phone Vu Oconnell MD Primary Care Provider Self-Referred, Patient Unavailable Unavailab Ghassan Grayson MD, PhD Unavailable [phone] Satya Jiang RN Unavailable [facility] [email or web address] Ivana Schuster RN Unavailable JOSE ANTONIO [email or web address] Fawn Baker RN Unavailable [place] [email or web address] Jareth Becker MD Unavailable [phone] Dante Lara MD, DMD Unavailable [phone] Lori Ayala RN Unavailable Reason for Referral * MRI/CAT Scan - Closed Specialty Diagnoses / Procedures Referred By Kenya t Referred To Contact Radiology Diagnoses Head and neck cancer Procedures NM PET CT Skull Base to Mid Thighs Nkechi Cottrell MD Phone: tel: fax: mailto:[email or web address] Referral ID Status Reason Start Date Expiration Date Visits Re quested Visits Authorized [id number] Closed 08/23/2022 08/23/2023 1 1 Encounter Details Date Type Department Care Team (Latest Contact Info) Description 08/23/2022 Transcribe Orders Virtual Department [address] [place] [address] Nkechi Cottrell MD [facility] [address], [address] [place] [address] [email or web address] Head and neck cancer (Primary Dx) Social History Tobacco Use Types Packs/Day Years Used Date Smoking Tobacco: Never Assessed Comments Unknown Sex and Gender Information Value Date Recorded [...] 8:30 AM EDT Blood Draw Laboratory Services, [address], 2nd [place] [address] Yang Pittman MD [address] [place] [phone] [email or web address] 06/18/2025 9:15 AM EDT Office Visit [facility], [address], [address] [place] [address] Dante Lara MD, DMD [address] [place] [phone] [email or web address] 06/18/2025 9:30 AM EDT Office Visit [facility], [address], [address] [place] [address] Dante Lara MD, DMD [address] [place] [phone] [email or web address]. Jareth Ceron MD [address] [place] [phone] [email or web address] documented as of this encounter Results * NM PET CT Skull Base to Mid Thighs (08/24/2022 10:15 AM EST) Anatomical Region Laterality Modality Positron Emissio n Tomography (PET) 08/24/2022 2:24 PM EST Impressions 08/24/2022 2:53 PM EST 1. FDG avid left neck mass correlates with biopsy-proven malignancy (SUV max of 24.2) 2. Focal FDG activity in the posterior aspect of the laryngeal glotis, most likely physiologic. Correlate with direct visualization. 3. No additional suspicious FDG activity. 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 - Squamous cell carcinoma, poorly differentiated, HPV mediated. COMPARISON: Soft tissue neck CT at outside facility on August 08, 2022. TECHNIQUE: Following the intravenous administration of 14.5 mCi of F-18 labeled FDG, head to toes PET scanning was performed. Noncontrast CT images were also obtained for attenuation correction and for fusion with the emission PET images. Volumen oral contrast was administered. Images were performed in the axial, coronal and sagittal planes. The patient's blood glucose at the time of imaging was 84 mg/dl. TOTAL BODY PET/CT FINDINGS: Head/neck: -FDG avid conglomerate dustin mass at the level of the left parotid gland with overall measurements of 5.1 cm x 4.4 cm x 4.2 cm and SUV max of 24.2 (axial image 42), correlates with known biopsy-proven malignancy. -Focal FDG activity in the posterior aspect of the laryngeal glotis (max of 14.8) measured on image 46) is most likely physiologic. Chest: No suspicious FDG activity. Abdomen and pelvis: No suspicious FDG activity Musculoskeletal: No suspicious FDG activity. 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 COMPARISON: Soft tissue neck CT at outside facility on July. TECHNIQUE: Following the intravenous administration of 14.5 mCi of F-18labeled FDG, head to toes PET scanning was performed. Noncontrast CTimages were also obtained for attenuation correction and for fusion withthe emission PET images. Volumen oral contrast was administered. Imageswere performed in the axial, coronal and sagittal planes. The patient'sblood glucose at the time of imaging was 84 mg/dl. TOTAL BODY PET/CT FINDINGS: Head/neck: -FDG avid conglomerate dustin mass at the level of the left parotid glandwith overall measurements of 5.1 cm x 4.4 cm x 4.2 cm and SUV max of 24.2(axial image 42), correlates with known biopsy-proven malignancy. -Focal FDG activity in the posterior aspect of the laryngeal glotis (maxof 14.8) measured on image 46) is most likely physiologic. Chest: No suspicious FDG activity. Abdomen and pelvis: No suspicious FDG activity Musculoskeletal: No suspicious FDG activity. IMPRESSION: 1. FDG avid left neck mass correlates with biopsy-proven malignancy (SUVmax of 24.2) 2. Focal FDG activity in the posterior aspect of the laryngeal glotis,most likely physiologic. Correlate with direct visualization. 3. No additional suspicious FDG activity. Nkechi Cottrell MD [facility] [place] PET Final Resu lt documented in this encounter Visit Diagnoses Diagnosis Head and neck cancer- Primary Head and neck cancer documented in this encounter Additional Health Concerns Infection Onset Date Last Indicated Resolved Time COVID-19 Comment:Sx onset 12/25/22 Test 12/27/22 12/25/2022 12/27/202201/14/2023 1:21 AM E DT documented as of this encounter Care Teams Die Designer Relationship Specialty Start Date End Date Vu Oconnell MD [address] [place] [address] PCP - General Family Medicine 08/11/22 Self-Referred, Patient 08/11/22 Ghassan Martinez MD, PhD [address] [place] [phone] [email or web address] Radiation Oncology 08/29/22 Satya Jiang RN [address] [place] [phone] [email or web address] Primary Infusion Nurse 09/28/22 11/25/23 Ivana Schuster, WISAM [address] [place] [phone] [email or web address] Associate Infusion Nurse 09/28/22 Fawn Baker RN [address] [place] [phone] [email or web address] Primary Infusion Nurse 09/28/22 Jareth Becker MD [address] [place] [phone] [email or web address] Primary Oncologist Medical Oncology 09/27/23 Dante Lara MD, DMD [address] [place] [phone] [email or web address] u Surgeon Otolaryngology 09/27/23 Lori Ayala RN [address] [place] [phone] [email or web address] Associate Infusion Nurse 10/19/21 documented as of this encounter Additional Source Comments The information contained in this document represents components of the legal health record. It is not the complete legal health record.[facility]
--- OUTSIDE RECORDS SUMMARY | 2025-04-28 11:05 | XMS_ITS | Clinical Summary ---
Author Organization [facility] Address [address] [place] [address] [place] [phone] Phone Care Team Providers Care Bread Packer Name Role Phone Vu Oconnell MD Primary Care Provider Self-Referred, Patient Unavailable Unavailab Ghassan Grayson MD, PhD Unavailable [phone] Ivana Schuster RN Unavailable JOSE ANTONIO [email or web address] Fawn Baker RN Unavailable [place] [email or web address] Jareth Becker MD Unavailable [phone] Dante Lara MD, DMD Unavailable [phone] Lori Ayala RN Unavailable Allergies No known active allergies Medications acetaminophen (TYLENOL) 325 mg tablet Take 2-3 tablets (650-975 mg total) by mouth every 6 (six) hours as needed. 3 Active ibuprofen (ADVIL,MOTRIN) 200 MG tablet Take 3 tablets (600 mg total) by mouth every 6 (six) hours as needed for pain (specific location in comments). 3 Active Additional Information Patient not taking.Reported on 11/27/2024 Medication-Free Text C4 PreWork Out (caffeine and CarnoSyn Beta-Alanine) Take by mouth 4 times weekly Active omeprazole magnesium (PRILOSEC ORAL) Take 1 capsule by mouth 2 (two) times a day. Active sucralfate (CARAFATE) 1 gram tablet Take 1 tablet by mouth 2 (two) times a day. Active traZODone (DESYREL) 50 MG tablet Take 50 mg by mouth nightly at bedtime as needed. Active hydrOXYzine (ATARAX) 25 MG tablet Take 25 mg by mouth nightly at bedtime as needed. Active Hospital, Clinic, or Other Facility Administered Medication Ordered Dose Route Frequency Start Date End Date Status botulinum toxin type A (BOTOX) injection 100 UnitsIndications:Spasmodic torticollis 100 Units IM Once 02/26/2025 05/27/2025 Active Active Problems Problem Noted Date Diagnosed Date [...] to prescribing the opioid, I utilized the [place] Prescription Awareness Tool ([place]) website to review previous prescriptions. Assessment & [...] to prescribing the opioid, I utilized the [employer] Prescription Awareness Tool ([place]PAT) website to review previous prescriptions. Squamous cell [...] Tolerating a full diet. Weight is stable. SLOT AMBASSADOR Support: Ongoing Emotional: Coping well Assessment & Plan (02/01/2023 10:17 PM EDT): Treatment: Bolus Cisplatin + XRT o Although still symptomatic and TSH remains suppressed, her FT4 is back down to normal. Will continue to monitor. o Continue metoprolol to manage cardiac symptoms of hyperthyroidism Oral Care / Dental Hygiene: Oral rinses as indicated Nutritional Support: Tolerating a full diet. Weight is stable. SLOT AMBASSADOR Support: Ongoing Emotional: Coping well Assessment & [...] Tolerating full oral diet. Weight is down. SLOT AMBASSADOR Support: Ongoing Emotional: Coping well Assessment & [...] Tolerating full oral diet. Weight is stable. SLOT AMBASSADOR Support: Ongoing Emotional: Coping well Assessment & [...] Tolerating full oral diet. Weight is stable. SLOT AMBASSADOR Support: Ongoing Emotional: Coping well Assessment & [...] Tolerating full oral diet. Weight is stable. SLOT AMBASSADOR Support: Ongoing Emotional: Coping well Assessment & [...] Tolerating full oral diet. Weight is down. SLOT AMBASSADOR Support: Ongoing Emotional: Coping well Assessment & [...] indicated Nutritional Support: Tolerating full oral diet. SLOT AMBASSADOR Support: Ongoing Emotional: Coping well Assessment & [...] indicated Nutritional Support: Tolerating full oral diet. SLOT AMBASSADOR Support: Ongoing Emotional: Coping well Assessment & [...] pain or redness at the neck mass. 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 (Primary Dx) from Last 3 Months Family History Medical History Relation Comments Breast cancer Maternal Grandmother Esophageal cancer Maternal Uncle Thyroid disease Neg Hx Relation Status Comments Maternal Grandmother Maternal Uncle Social History Tobacco Use Types Packs/Day Years Used Date Smoking Tobacco: Former Cigarettes Q uit: 07/25/2022 Smokeless Tobacco: Never Tobacco Cessation:Counseling Given: Not Answered Alcohol Use Standard Drinks/Week Comments Not Currently [...] 2:59 PM EST Sexual Orientation Straight 08/11/2022 2 :59 PM EST Last Filed Vital Signs Vital Sign Reading Time Taken Comments Blood Pressure 106/59 02/26/2025 11:36 AM EDT Pulse 77 02/26/2025 11:36 AM EDT Temperature 36.6 C (97.8 F) 02/26/2025 11:36 AM EDT Respiratory Rate 18 02/26/2025 11:36 AM EDT Oxygen Saturation 98% 02/26/2025 11:36 AM EDT Inhaled Oxygen Concentration - - Weight 72.6 kg (160 lb 0.9 oz) 02/26/2025 11:36 AM EDT Height 167.3 cm (5' 5.87 ) 10/23/2024 10:[address] Body Mass Index 25.94 10/23/2024 10:14 AM EST Plan of Treatment Upcoming Encounters Date Type Department Care Team (Late st Contact Info) Description 06/18/2025 8:30 AM EDT Blood Draw Laboratory Services, [address], [address] [place] [address] Yang Pittman MD [address] [place] [phone] [email or web address] 06/18/2025 9:15 AM EDT Office Visit [facility], [address], [address] [place] [address] Dante Lara MD, DMD [address] [place] [phone] [email or web address] 06/18/2025 9:30 AM EDT Office Visit [facility], [address], [address] [place] [address] Dante Lara MD, DMD [address] [place] [phone] [email or web address]. Jareth Ceron MD [facility] [place] [phone] [email or web address] Health Maintenance Due Date Last Done Comments Adult Td,Tdap Booster 1990 DEPRESSION SCREENING 2002 SMOKING Hx and SMOKELESS TOBACCO SCREENING 2003 PNEUMOCOCCAL VACCINES (0-49 years) (1 of 2 - PCV) 2009 INFLUENZA VACCINE (#1) 2025 COVID-19 VACCINE (1 - 2023-2 5 season) 2025 PAP SMEAR 09/26/2025 09/26/2022, 09/26/2022 HEPATITIS C SCREENING Completed 09/13/2022 HIV ONE-TIME SCREENING (18-6 5 YEARS) Completed 09/13/2022 HEPATITIS A VACCINES Aged Out No long er eligible based on patient's age to complete this topic HIB VACCINES Aged Out No longer eligi ble based on patient's age to complete this topic MENINGOCOCCAL VACCINES (ACWY) Aged Out No longer eligible based on patient's age to complete this topic MENINGOCOCCAL VACCINES (B) Aged Out N o longer eligible based on patient's age to complete this topic Medical Devices Not on file Procedures Procedure Name Priority Date/Time Associated Diagnosis Comments HPV CTDNA TO NAVERIS (NAVDX) Routine 02/26/2025 11:27 AM EDT Squamous cell carcinoma metastatic to 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 INTERPRETATION: NEGATIVE FOR INTRAEPITHELIAL LESION OR MALIGNANCY. AUTOMATED REVIEW: This specimen was prescreened using the ThinPrep Imaging System. CLINICAL DATA LMP: Unknown; Routine pap screening with HPV cotesting TOTAL SLIDES 1 PROCEDURES Screening or High Risk ThinPrep with Auto Pre-Screen - [facility] 1 Final Diagnosis by Sravani PALMA (ASCP), Electronically signed on Monday October 03, 2022 at 03:02:49PM us Imani Carlisle MD CYTOLOGY ORDERABLES Final Result Performing Organization Address [facility] Co de Phone Number [facility] [address] [place] [phone] * Hepatitis C antibody, qualitative (09/13/2022 12:09 PM EST) HCV Nonreactive Nonreactive [facility] Comment: Blood 09/13/2022 12:0 9 PM EST 09/13/2022 12:44 PM EST Sandra Oliver MD LAB BLOOD ORDERABLES Final Result [facility] [address] [place] [address] from Last 3 Months or Most Recently Relevant to Health Maintenance [place] [address] [place] [address] [place] [address] Care Teams Bread Packer Relationship Specialty Start Date End Date Vu Oconnell MD [address] [place] [address] PCP - General Family Medicine 08/11/22 Self-Referred, Patient 08/11/22 Ghassan Martinez MD, PhD [address] [place], [place] [phone]- [address] [address] [email or web address] Radiation Oncology 08/29/22 Ivana Schuster RN [address] [place] [phone] [email or web address] Associate Infusion Nurse 09/28/22 Fawn Baker RN [address] [place] [phone] [email or web address] Primary Infusion Nurse 09/28/22 Jareth Becker MD [address] [place] [phone] [email or web address] Primary Oncologist Medical Oncology 09/27/23 Dante Lara MD, DMD [address] [place] [phone] [email or web address] u Surgeon Otolaryngology 09/27/23 Lori Ayala RN [address] [place] [phone] [email or web address] Associate Infusion Nurse 10/19/21 Additional Source Comments The information contained in this document represents components of the legal health record. It is not the complete legal health record.[facility]
--- OUTSIDE RECORDS SUMMARY | 2025-04-28 11:05 | XMS_ITS | Encounter Summary ---
Author Organization [facility] Address [address] [facility] [address] [place] [address] Phone Care Team Providers Care Solar Project Coordination Specialist Name Role Phone Vu Oconnell MD Primary Care Provider Self-Referred, Patient Unavailable Unavailab Ghassan Grayson MD, PhD Unavailable [phone] Satya Jiang RN Unavailable [facility] [email or web address] Ivana Schuster RN Unavailable JOSE ANTONIO [email or web address] Fawn Bakre RN Unavailable [place] [email or web address] Jareth Becker MD Unavailable [phone] Dante Lara MD, DMD Unavailable [phone] Lori Ayala RN Unavailable Encounter Details Date Type Department Care Team (Late st Contact Info) Description 09/01/2022 Procedure Pass [facility] Periop [address] [place] [address] Social History Tobacco Use Types Packs/Day Years [...] 8:30 AM EDT Blood Draw Laboratory Services, [address], [address] [place] [address] Yang Pittman MD [address] [place] [phone] [email or web address] 06/18/2025 9:15 AM EDT Office Visit [facility], [address], [address] [place] [address] Dante Lara MD, DMD [address] [place] [phone] [email or web address] 06/18/2025 9:30 AM EDT Office Visit [facility], [address], [address] [place] [address] Dante Lara MD, DMD [address] [place] [phone] [email or web address]. Jareth Ceron MD [address] [place] [phone] [email or web address] documented as of this encounter Visit Diagnoses Not on filedocumented in this encounter Additional Health Concerns Infection Onset Date Last Indicated Resolved Time COVID-19 Comment:Sx onset 12/25/22 Test 12/27/22 12/25/2022 12/27/2022 01/14/2023 1:21 AM E DT documented as of this encounter Care Teams Solar Project Coordination Specialist Relationship Specialty Start Date End Date Vu Oconnell MD [address] [place] [address] PCP - General Family Medicine 08/11/22 Self-Referred, Patient 08/11/22 Ghassan Martinez MD, PhD [address] [place] [address], [address] [address] [email or web address] Radiation Oncology 08/29/22 Satya Jiang, WISAM [address] [place] [phone] [email or web address] Primary Infusion Nurse 09/28/22 11/25/23 Ivana Schuster, WISAM [address] [place] [phone] [email or web address] Associate Infusion Nurse 09/28/22 Fawn Baker RN [address] [place] [phone] [email or web address] Primary Infusion Nurse 09/28/22 Jareth Becker MD [address] [place] [phone] [email or web address] Primary Oncologist Medical Oncology 09/27/23 Dante Lara MD, DMD [address] [place] [phone] [email or web address] u Surgeon Otolaryngology 09/27/23 Lori Ayala RN [address] [place] [phone] [email or web address] Associate Infusion Nurse 10/19/21 documented as of this encounter Additional Source Comments The information contained in this document represents components of the legal health record. It is not the complete legal health record.[facility]
--- OUTSIDE RECORDS SUMMARY | 2025-04-28 11:05 | XMS_ITS | Encounter Summary ---
Author Organization [facility] Address [address] [facility] [address] [place] [address] Phone Care Team Providers Care Reconciliation Analyst Name Role Phone Vu Oconnell MD Primary Care Provider Self-Referred, Patient Unavailable Unavailab Ghassan Grayson MD, PhD Unavailable + [phone] Satya Jiang RN Unavailable [facility] [email or web address] Ivana Schuster RN Unavailable JOSE ANTONIO [email or web address] Fawn Baker RN Unavailable [place] [email or web address] Jareth Becker MD Unavailable [phone] Dante Lara MD, DMD Unavailable +[phone] Lori Ayala RN Unavailable Encounter Details Date Type Department Care Team (Late st Contact Info) Description 09/26/2022 Procedure Pass [facility] Periop [address] [place] [address] Social History Tobacco Use Types Packs/Day Years [...] 8:30 AM EDT Blood Draw Laboratory Services, [address], [address] [place] [address] Yang Pittman MD [address] [place] [phone] [email or web address] 06/18/2025 9:15 AM EDT [facility], [address], [address] [place] [address] Dante Lara MD, DMD [address] [place] [address] [email or web address] 06/18/2025 9:30 AM EDT Office Visit [facility], [address], [address] [place] [address] Dante Lara MD, DMD [address] [place] [phone] [email or web address]. Jareth Ceron MD [address] [place] [address] [phone] [email or web address] documented as of this encounter Visit Diagnoses Not on filedocumented in this encounter Additional Health Concerns Infection Onset Date Last Indicated Resolved Time COVID-19 Comment:Sx onset 12/25/22 Test 12/27/22 12/25/2022 12/27/2022 01/14/2023 1:21 AM E DT documented as of this encounter Care Teams Reconciliation Analyst Relationship Specialty Start Date End Date Vu Oconnell MD [address] [place] [address] 97[address] PCP - General Family Medicine 08/11/22 Self-Referred, Patient 08/11/22 Ghassan Martinez MD, PhD [address] [place] [phone] [email or web address] Radiation Oncology 08/29/22 Satya Jiang RN [address] [place] [address] [phone] [email or web address] Primary Infusion Nurse 09/28/22 11/25/23 Ivana Schuster, RN [address] [place] [phone] WILLIAM@[email or web address] Associate Infusion Nurse 09/28/22 Fawn Baker, WISAM [address] [place] [address] [email or web address] Primary Infusion Nurse 09/28/22 Jareth Becker MD [address] [place] [address] [phone] [email or web address] Primary Oncologist Medical Oncology 09/27/23 Dante Lara MD, DMD [address] [place] [address] [phone] [email or web address] u Surgeon Otolaryngology 09/27/23 Lori Ayala RN [address] [place], [place] [phone] [email or web address] Associate Infusion Nurse 10/19/21 documented as of this encounter Additional Source Comments The information contained in this document represents components of the legal health record. It is not the complete legal health record.[facility]
[2025-04-28 12:03] LABS: Alanine Aminotransferase 25 U/L (0-31); Albumin Level 4.5 g/dL (3.5-5.0); Alkaline Phosphatase 47 U/L (39-117); Anion Gap 10 (12-20); Aspartate Amino Transferase 20 U/L (5-31); Blood Urea Nitrogen 16 mg/dL (9-16); Calcium 9.0 mg/dL (8.4-10.2); Carbon Dioxide 24 mmol/L (22-29); Chloride 109 mmol/L (96-108); Estimated Glomerular Filt Rate > 60; Potassium 4.3 mmol/L (3.3-5.1); Sodium 139 mmol/L (135-145); Total Protein 6.6 g/dL (6.5-8.0)
[2025-04-28 12:10] LABS: Free T4 (Free Thyroxine) 0.92 ng/dL (0.71-1.85); Thyroid Stimulating Hormone 2.46 uIU/mL (0.32-4.0)
[2025-04-28 14:14] LABS: Appearance Urine Clear; Glucose Urine UA Negative (Negative); PH 6.0 (5.0-9.0); Specific Gravity - Urine 1.015 (1.005-1.025); UMIC TRIGGER UA YES
== END 2025-04-28 09:36 | disposition home or self-care (01) ==
LOC: HO.WFDLDS 09:35
PROVIDERS: Visit Provider Family Medicine
DX: Z00.00 Encounter for general adult medical examination without abnormal findings (principal); E03.9 Hypothyroidism, unspecified; R74.01 Elevation of levels of liver transaminase levels
CPT/HCPCS: 36415; 80053; 81001; 84439; 84443; 84480; 86376

== ENCOUNTER 2025-05-04 14:37 | Outpatient (AMB) | payer BC, SELFPAY ==
--- NOTE | 2025-05-04 14:37 | MHC.PC.OV ---
Intake Visit Reasons: thyroid hormone levels /starting on levothyroxine Allergies No Known Allergies Allergy (Verified 05/04/25 14:38) Medication List - Last Reconciled 05/04/25 by Vu Oconnell MD acetaminophen (Tylenol Extra Strength) 1,000 mg PO Q6H PRN hydroxyzine HCl 25 mg PO BEDTIME PRN 90 days levothyroxine 50 mcg PO DAILY 30 days ondansetron 4 mg PO DAILY PRN 30 days pantoprazole (Protonix) 40 mg PO DAILY 30 days trazodone 50 mg PO BEDTIME PRN 30 days Tobacco use date assessed: 05/04/25 Dental Screening Dental Screen Date: 05/04/25 Did you have a dental visit in the last 12 months?: Yes Did you have a dental problem in the last 6 months where you did not have access to dental care?: No Was dental information given to patient?: Patient has dentist HPI thyroid hormone levels /starting on levothyroxine HPI Details 34 y/o female presents to f/u hypothyroidism, labs via telemedicine. Had started her on levothyroxine 50 mcg daily. Labs drawn 04/28/25. Reviewed labs with pt. TSH 2.46 uIU/mL, Free T4 0.92 ng/dL, Total T3 80 ng/dL. Pt notes symptoms have improved on levothyroxine 50 mcg daily. ALT improved to 25. Has complaints of a cyst on her scalp. [facility] Medical History Normal physical examination, routine Laboratory exam ordered as part of routine general medical examination Screening for cervical cancer In vitro fertilization Surgical History H/O laparoscopy History of tonsillectomy H/O lateral meniscus repair of left knee Family History Maternal Grandfather Diabetes Paternal Grandmother Lung cancer Other Mental health disorder Substance abuse Social History Household Members: None Both parents involved: No Caregiver staying overnight: No Housing: Apartment Are you a primary managed care liaison to a significant other at home: No Do you presently have visiting nurse or other home services: No 75 years or older and lives alone: No Alcohol intake: current Alcohol intake frequency: holidays/special occasions only Alcohol type: hard liquor Patient Tobacco Use Status: Former Tobacco user e-Cigarette/Vaping Use: Never Used Substance Use Type: Marijuana service: No Current occupational status: employed 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 1. Little interest or pleasure in doing things: not at all 2. Feeling down, depressed, or hopeless: not at all 3. Trouble falling or staying asleep, or sleeping too much: several days 4. Feeling tired or having little energy: several days 5. Poor appetite or overeating: several days 6. Feeling bad about yourself - or that you are a failure or have let yourself or your family down: not at all 7. Trouble concentrating on things, such as reading the newspaper or watching television: not at all 8. Moving or speaking so slowly that other people could have noticed. Or the opposite - being so fidgety or restless that you have been moving around a lot more than usual: not at all 9. Thoughts that you would be better off or of hurting yourself in some way: not at all Total score: 3 Depression Screening Interpretation: Negative Depression Screening Done: Yes Source: Developed by Drs. Jareth Hannah, Fatou Aquino, Keenan Hendricks and colleagues, with an educational keila from [employer]. Thrive Questionnaire Date Thrive assessed: 10/20/24 I am a: Patient What is your living situation today?: I have a steady place to live Within the past 12 months, did the food you bought not last and you didn't have the money to get more?: Never true Within the past 12 months, did you worry whether your food would run out before you got money to buy more?: Never true Do you have trouble paying for medicines?: No Do you have trouble getting transportation to medical appointments?: No Do you have trouble paying your heating and electricity bill?: No Do you have trouble taking care of your child, family member or friend?: No Do you have trouble with day-to-day activities such as bathing, preparing meals, shopping, managing finances, etc.?: No Are you currently unemployed and looking for a job?: No Are you interested in more education?: Yes Please select the resources that you would like help with: None Currently or been in a relationship where the following occur: No concerns reported THRIVE Score: 0 AUDIT C Alcohol Use Questionnaire (AUDIT-C) 1. How often do you have a drink containing alcohol?: 2-4 times a month 2. How many drinks containing alcohol do you have on a typical day when you are drinking?: 3 or 4 3. How often do you have six or more drinks on one occasion?: Never Total Score: 3 KANG-7 AMB Questionnaire KANG-7 Date KANG - 7 assessed: 10/20/24 Feeling nervous, anxious, or on edge: 1 = Several days Not being able to stop or control worryin = Several days Worrying too much about different things: 1 = Several days Trouble relaxin = Several days Being so restless that it is hard to sit still: 1 = Several days Becoming easily annoyed or irritable: 1 = Several days Feeling afraid as if something awful might happen: 0 = Not at all Total KANG-7 score (0-4 normal; 5-9 mild; 10-14 moderate; 15-21 severe): 6 Source: Developed by Drs. Jareth Hannah, Fatou Aquino, Keenan Hendricks and colleagues, with an educational keila from [employer]. Review of Systems Const Denies chills, Denies fatigue, Denies fever(s), Denies headache(s) and Denies weakness ENT Denies dizziness and Denies headache(s) Card Denies dyspnea Resp Denies cough, Denies dyspnea, Denies wheezing and Denies other (shortness of breath) Musc Denies numbness and Denies tingling Neuro Denies dizziness, Denies headache(s), Denies numbness, Denies tingling and Denies weakness Psych Denies anxiety and Denies depression Endo Denies fatigue Aller/Immun Denies wheezing Physical exam (Primary Care) Tobacco/Smoking Status: Tobacco use Status Tobacco use date assessed 05/04/25 05/04/25 14:39 Patient Tobacco Use Status Former Tobacco user 05/04/25 14:39 e-Cigarette/Vaping Use Never Used 05/04/25 14:39 PHQ-9: PHQ-9 Score PHQ-9: Total score 3 05/04/25 14:58 Depression Screening Interpretation: Negative Thrive Assessment: Date of Thrive Assessment Date Thrive assessed 10/20/24 05/04/25 14:39 Currently or been in a relationship where the following occur: No concerns reported Telehealth Telehealth Telehealth Platform: Telephone Location of provider rendering services: practice address Location of patient: address on file Patient Identification confirmed using: Name, : Yes Telehealth method: voice only Patient verbally consented to treatment: Yes Patient verbally consented to billing insurance company: Yes Patient informed of any privacy concerns related to visit: Yes Minutes spent on Phone/Video with Pt.: 6 Coding Level of Care Code Tele Est Pt Level 2 (47539) Diagnoses Hypothyroidism E03.9 Elevated ALT measurement R74.01 Scalp cyst L72.9 Assessment & Plan Assessment & Plan (1) Hypothyroidism: Code(s): E03.9 - Hypothyroidism, unspecified Category: Medical Plan: Patient started levothyroxine after last visit. TSH, T4 and total T3 now all within normal range. Patient says symptoms have been improving such as hair thinning Continue current medication (2) Elevated ALT measurement: Code(s): R74.01 - Elevation of levels of liver transaminase levels Category: Medical Plan: Patient had mildly elevated ALT and I advised good hydration repeat of her labs Liver enzymes within normal range (3) Scalp cyst: Code(s): L72.9 - Follicular cyst of the skin and subcutaneous tissue, unspecified Category: Medical Plan: Patient notes all cysts on her scalp Referred to dermatology Orders: Orders Triiodothyronine T3 Total Today E03.9 - Hypothyroidism, unspecified Thyroid Stimulating Hormone Today E03.9 - Hypothyroidism, unspecified Basic Metabolic Panel Today E03.9 - Hypothyroidism, unspecified, Z00.00 - Encounter for general adult medical examination without abnormal findings Free T4 (Free Thyroxine) Today E03.9 - Hypothyroidism, unspecified Referrals Dermatology Referral L72.9 - Follicular cyst of the skin and subcutaneous tissue, unspecified
--- OUTSIDE RECORDS SUMMARY | 2025-05-04 20:04 | XMS_ITS | Encounter Summary ---
Author Organization [facility] Address [address] [facility] [address] [place] [address] Phone Care Team Providers Care Intel Analyst Name Role Phone Vu Oconnell MD Primary Care Provider Self-Referred, Patient Unavailable Unavailab Ghassan Grayson MD, PhD Unavailable + [phone] Satya Jiang RN Unavailable [facility] [email or web address] Ivana Schuster RN Unavailable JOSE ANTONIO [email or web address] Fawn Baker RN Unavailable [place] [email or web address] Jareth Becker MD Unavailable [phone] Dante Lara MD, DMD Unavailable [phone] Lori Ayala RN Unavailable Encounter Details Date Type Department Care Team (Late st Contact Info) Description 09/14/2022 Procedure Pass [facility] [place] [place] [address] [facility], Floor [address] [place] [address] Social History Tobacco Use Types Packs/Day Years [...] 8:30 AM EDT Blood Draw Laboratory Services, [address], 2nd [place] [address] Yang Pittman MD [address] [place] [address] [phone] [email or web address] 06/18/2025 9:15 AM EDT Office Visit [facility], [address], [address] [place] [address] Dante Lara MD, DMD [address] [place] [address] [email or web address] yolis 06/18/2025 9:30 AM EDT Office Visit [facility], [address], [address] [place] [address] Dante Lara MD, DMD [address] [place] [address] [email or web address]. Jareth Ceron MD [address] [place] [address] [phone] [email or web address] documented as of this encounter Visit Diagnoses Not on filedocumented in this encounter Additional Health Concerns Infection Onset Date Last Indicated Resolved Time COVID-19 Comment:Sx onset 12/25/22 Test 12/27/22 12/25/2022 12/27/2022 01/14/2023 1:21 AM E DT documented as of this encounter Care Teams Intel Analyst Relationship Specialty Start Date End Date Vu Oconnell MD [address] [place] [address] 087[address] PCP - General Family Medicine 08/11/22 Self-Referred, Patient 08/11/22 Ghassan Martinez MD, PhD [address] [place] [phone] [email or web address] Radiation Oncology 08/29/22 Satya Jiang, WISAM [address] [place] [address] 18462 [email or web address] Primary Infusion Nurse 09/28/22 11/25/23 Ivana Schuster RN [address] [place] [phone] [email or web address] Associate Infusion Nurse 09/28/22 Fawn Baker, RN [address] [place] [phone] [email or web address] Primary Infusion Nurse 09/28/22 Jareth Becker MD [address] [place] [phone] [email or web address] Primary Oncologist Medical Oncology 09/27/23 Dante Lara MD, DMD [address] [place] [phone] [email or web address]. u Surgeon Otolaryngology 09/27/23 Lori Ayala RN [address] [place] [phone] [email or web address] Associate Infusion Nurse 10/19/21 documented as of this encounter Additional Source Comments The information contained in this document represents components of the legal health record. It is not the complete legal health record.[facility]
--- OUTSIDE RECORDS SUMMARY | 2025-05-04 20:04 | XMS_ITS | Encounter Summary ---
Author Organization [facility] Address [address] [facility] [address] [place] [address] Phone Care Team Providers Care Advertising Representative Name Role Phone Vu Oconnell MD Primary Care Provider Self-Referred, Patient Unavailable Unavailab Ghassan Grayson MD, PhD Unavailable + [phone] Satya Jiang RN Unavailable [facility] [email or web address] Ivana Schuster RN Unavailable JOSE ANTONIO [email or web address] Fawn Baker RN Unavailable [place] [email or web address] Jareth Becker MD Unavailable [phone] Dante Lara MD, DMD Unavailable [phone] Lori Ayala RN Unavailable Encounter Details Date Type Department Care Team (Late st Contact Info) Description 2023 Procedure Pass [facility] MR Imaging, [place] [address] [place] [address] Social History Tobacco Use Types Packs/Day Years [...] 8:30 AM EDT Blood Draw Laboratory Services, [address], [address] [place] [address] Yang Pittman MD [address] [place] [address] [phone] [email or web address] 06/18/2025 9:15 AM EDT Office Visit [facility], [address], [address] [place] [address] Dante Lara MD, [address] [address] [email or web address]. [email or web address] 06/18/2025 9:30 AM EDT Office Visit [facility], [facility] [place] [address] [facility], 11th [place] [address] Dante Lara MD, DMD [address] [place] [phone] [email or web address]. Jareth Ceron MD [address] [place] [phone] [email or web address] documented as of this encounter Visit Diagnoses Not on filedocumented in this encounter Care Teams Advertising Representative Relationship Specialty Start Date End Date Vu Oconnell MD [address] [place] [address] 72769 PCP - General Family Medicine 08/11/22 Self-Referred, Patient 08/11/22 Ghassan Martinez MD, PhD [address] [place] [phone] [email or web address] Radiation Oncology 08/29/22 Satya Jiang, WISAM [address] [place] [address] [email or web address] Primary Infusion Nurse 09/28/22 11/25/23 Ivana Schuster, WISAM [address] [place] [phone] WILLIAM@[email or web address] Associate Infusion Nurse 09/28/22 Fawn Baker, WISAM [address] [place] [address] [email or web address] Primary Infusion Nurse 09/28/22 Jareth Becker MD [address] [place] [address] [phone] [email or web address] Primary Oncologist Medical Oncology 09/27/23 Dante Lara MD, DMD [address] [place] [address] [phone] [email or web address] u Surgeon Otolaryngology 09/27/23 Lori Ayala RN [address] [place] [address] [email or web address] Associate Infusion Nurse 10/19/21 documented as of this encounter Additional Source Comments The information contained in this document represents components of the legal health record. It is not the complete legal health record.[facility]
--- OUTSIDE RECORDS SUMMARY | 2025-05-04 20:04 | XMS_ITS | Encounter Summary ---
Author Organization [facility] Address [address] [place] [address] Phone Care Team Providers Care Market Research Senior Project Manager Name Role Phone Vu Oconnell MD Primary Care Provider Self-Referred, Patient Unavailable Unavailab Ghassan Grayson MD, PhD Unavailable + [phone] Satya Jiang RN Unavailable [facility] [email or web address] Ivana Schuster RN Unavailable JOSE ANTONIO [email or web address] Fawn Baker RN Unavailable [place] [email or web address] Jareth Becker MD Unavailable [phone] Dante Lara MD, DMD Unavailable [phone] Lori Ayala RN Unavailable Encounter Details Date Type Department Care Team (Late st Contact Info) Description 03/29/2023 Procedure Pass [facility] [address] [place] [address] Social History Tobacco Use Types Packs/Day Years [...] 8:30 AM EDT Blood Draw Laboratory Services, [address], [address]nd [place] [address] Yang Pittman MD [address] [place] [address] [phone] [email or web address] 06/18/2025 9:15 AM EDT Office Visit [facility], [address] [place] [address] Dante Lara MD, [address] [address] [email or web address]. [email or web address] 06/18/2025 9:30 AM EDT Office Visit [facility], [facility] [place] [address] [facility], 11th [place] [address] Dante Lara MD, DMD [address] [place] [phone] [email or web address]. Jareth Ceron MD [address] [place] [phone] Concepcion@[email or web address] documented as of this encounter Visit Diagnoses Not on filedocumented in this encounter Care Teams Market Research Senior Project Manager Relationship Specialty Start Date End Date Vu Oconnell MD [address] [place] [address] PCP - General Family Medicine 08/11/22 Self-Referred, Patient 08/11/22 Ghassan Martinez MD, PhD [address] [place] [phone] [email or web address]@[email or web address] Radiation Oncology 08/29/22 Satya Jiang, WISAM [address] [place] [address] [email or web address] Primary Infusion Nurse 09/28/22 11/25/23 Ivana Schuster, WISAM [address] [place] [address] [email or web address] Associate Infusion Nurse 09/28/22 Fawn Baker, WISAM [address] [place] [address] [email or web address] Primary Infusion Nurse 09/28/22 Jareth Becker MD [address] [place] [address] [phone] [email or web address] Primary Oncologist Medical Oncology 09/27/23 Dante Lara MD, DMD [address] [place] [address] [phone] [email or web address] u Surgeon Otolaryngology 09/27/23 Lori Ayala RN [address] [place] [address] [email or web address] Associate Infusion Nurse 10/19/21 documented as of this encounter Additional Source Comments The information contained in this document represents components of the legal health record. It is not the complete legal health record.[facility]
--- OUTSIDE RECORDS SUMMARY | 2025-05-04 20:04 | XMS_ITS | Encounter Summary ---
Author Organization [facility] Address [address] [facility] [address] [place] [address] Phone Care Team Providers Care Grain Oilseed Or Pasture Farm Worker Name Role Phone Vu Oconnell MD Primary Care Provider Self-Referred, Patient Unavailable Unavailab Ghassan Grayson MD, PhD Unavailable + [phone] Satya Jiang RN Unavailable [facility] [email or web address] Ivana Schuster RN Unavailable JOSE ANTONIO [email or web address] Fawn Baker RN Unavailable [place] [email or web address] Jareth Becker MD Unavailable [phone] Dante Lara MD, DMD Unavailable [phone] Lori Ayala RN Unavailable Encounter Details Date Type Department Care Team (Late st Contact Info) Description 12/01/2022 Procedure Pass [facility]andra L[facility] Imaging Department, [facility] [place], PET/CT [address] [place] [address] Social History Tobacco Use Types Packs/Day Years [...] 8:30 AM EDT Blood Draw Laboratory Services, [address], [address] [place] [address] Yang Pittman MD [address] [place] [phone] [email or web address] 06/18/2025 9:15 AM EDT Office [facility], [address], [address] [place] [address] Dante Lara MD, DMD [address] [place] [phone] [email or web address] 06/18/2025 9:30 AM EDT Office Visit [facility], [address], [address] [place] [address] Dante Lara MD, DMD [address] [place] [phone] [email or web address]. Jareth Ceron MD [address] [place] [phone] Concepcion@[email or web address] documented as of this encounter Visit Diagnoses Not on filedocumented in this encounter Additional Health Concerns Infection Onset Date Last Indicated Resolved Time COVID-19 Comment:Sx onset 12/25/22 Test 12/27/22 12/25/2022 12/27/2022 01/14/2023 1:21 AM E DT documented as of this encounter Care Teams Grain Oilseed Or Pasture Farm Worker Relationship Specialty Start Date End Date Vu Oconnell MD [address] [place] [address] PCP - General Family Medicine 08/11/22 Self-Referred, Patient 08/11/22 Ghassan Martinez MD, PhD [address] [place] [phone] [email or web address] Radiation Oncology 08/29/22 Satya Jiang, WISAM [address] [place] [address] [email or web address] Primary Infusion Nurse 09/28/22 11/25/23 Ivana Schuster, WISAM [address] [place] [address] [email or web address]@[email or web address] Associate Infusion Nurse 09/28/22 Fawn Baker, WISAM [address] [place] [address] [email or web address] Primary Infusion Nurse 09/28/22 Jareth Becker MD [address] [place] [address] [phone] Concepcion@[email or web address] Primary Oncologist Medical Oncology 09/27/23 Dante Lara MD, DMD [address] [place] [address] [phone] [email or web address] u Surgeon Otolaryngology 09/27/23 Lori Ayala RN [address] [place] [phone] [email or web address] Associate Infusion Nurse 10/19/21 documented as of this encounter Additional Source Comments The information contained in this document represents components of the legal health record. It is not the complete legal health record.[facility]
--- OUTSIDE RECORDS SUMMARY | 2025-05-04 20:04 | XMS_ITS | Encounter Summary ---
Author Organization [facility] Address [address] [place] [address] [place] [address] Phone Care Team Providers Care Measurement Superintendent Name Role Phone Vu Oconnell MD Primary Care Provider Self-Referred, Patient Unavailable Unavailab Ghassan Grayson MD, PhD Unavailable [phone] Satya Jiang RN Unavailable [facility] [email or web address] Ivana Schuster RN Unavailable JOSE ANTONIO HURST@[email or web address] Fawn Baker RN Unavailable [place] [email or web address] Jareth Becker MD Unavailable [phone] Dante Lara MD, DMD Unavailable [phone] Lori Ayala RN Unavailable Reason for Referral * MRI/CAT Scan - Closed Specialty Diagnoses / Procedures Referred By Kenya t Referred To Contact Radiology Diagnoses Head and neck cancer Procedures NM PET CT Skull Base to Mid Thighs Nkechi Cottrell MD Phone: tel: fax: mailto:[email or web address] Referral ID Status Reason Start Date Expiration Date Visits Re quested Visits Authorized [id number] Closed 08/23/2022 08/23/2023 1 1 Encounter Details Date Type Department Care Team (Latest Contact Info) Description 08/23/2022 Transcribe Orders Virtual Department [address] [place] [address] Nkechi Cottrell MD [facility] Rachel Jones, [address] [place] [address] [email or web address] Head and neck cancer (Primary [...] 8:30 AM EDT Blood Draw Laboratory Services, [address], 2nd [place] [address] Yang Pittman MD [address] [place] [phone] [email or web address] 06/18/2025 9:15 AM EDT Office Visit [facility], [address], [address] [place] [address] Dante Lara MD, DMD [address] [place] [phone] [email or web address]. [email or web address] 06/18/2025 9:30 AM EDT Office Visit [facility], [address], [address] [place] [address] Dante Lara MD, DMD [address] [place] [phone] [email or web address]. Jareth Ceron MD [address] [place] [phone] [email or web address] documented as of this encounter Results * [...] FDG activity. Nkechi Cottrell MD [facility] NM PET Final Resu lt documented in this encounter Visit Diagnoses Diagnosis Head and neck cancer- Primary Head and neck cancer documented in this encounter Additional Health Concerns Infection Onset Date Last Indicated Resolved Time COVID-19 Comment:Sx onset 12/25/22 Test 12/27/22 12/25/2022 12/27/202201/14/2023 1:21 AM E DT documented as of this encounter Care Teams Measurement Superintendent Relationship Specialty Start Date End Date Vu Oconnell MD [address] [place] [address] PCP - General Family Medicine 08/11/22 Self-Referred, Patient 08/11/22 Ghassan Martinez MD, PhD [address] [place] [address] [email or web address] Radiation Oncology 08/29/22 Satya Jiang RN [address] [place] [phone] [email or web address] Primary Infusion Nurse 09/28/22 11/25/23 Ivana Schuster, WISAM [address] [place] [address] WILLIAM@[email or web address] Associate Infusion Nurse 09/28/22 Fawn Baker RN [address] [place] [address] Candida@[email or web address] Primary Infusion Nurse 09/28/22 Jareth Becker MD [address] [place] [phone] [email or web address] Primary Oncologist Medical Oncology 09/27/23 Dante Lara MD, DMD [address] [place] [phone] [email or web address] u Surgeon Otolaryngology 09/27/23 Lori Ayala RN [address] [place] [phone] [email or web address] Associate Infusion Nurse 10/19/21 documented as of this encounter Additional Source Comments The information contained in this document represents components of the legal health record. It is not the complete legal health record.[facility]
--- OUTSIDE RECORDS SUMMARY | 2025-05-04 20:04 | XMS_ITS ---
Author Organization [facility] Address [address] [facility] [address] [place] [address] Phone Care Team Providers Care Microfilm Machine Operator Name Role Phone Vu Oconnell MD Primary Care Provider Self-Referred, Patient Unavailable Unavailab Ghassan Grayson MD, PhD Unavailable [phone] Ivana Schuster RN Unavailable JOSE ANTONIO [email or web address] Fawn Bkaer RN Unavailable [place] [email or web address] Jareth Becker MD Unavailable [phone] Dante Lara MD, DMD Unavailable [phone] Lori Ayala RN Unavailable Active Problems Problem [...] to prescribing the opioid, I utilized the [employer] [place] Prescription Awareness Tool (CosmosID) website to review previous prescriptions. Assessment & [...] to prescribing the opioid, I utilized the [employer] Prescription Awareness Tool (CosmosID) website to review previous prescriptions. Squamous cell [...] Tolerating a full diet. Weight is stable. SERVICE CENTER REPRESENTATIVE Support: Ongoing Emotional: Coping well Assessment & Plan (02/01/2023 10:17 PM EDT): Treatment: Bolus Cisplatin + XRT o Although still symptomatic and TSH remains suppressed, her FT4 is back down to normal. Will continue to monitor. o Continue metoprolol to manage cardiac symptoms of hyperthyroidism Oral Care / Dental Hygiene: Oral rinses as indicated Nutritional Support: Tolerating a full diet. Weight is stable. SERVICE CENTER REPRESENTATIVE Support: Ongoing Emotional: Coping well Assessment & [...] Tolerating full oral diet. Weight is down. SERVICE CENTER REPRESENTATIVE Support: Ongoing Emotional: Coping well Assessment & [...] Tolerating full oral diet. Weight is stable. SERVICE CENTER REPRESENTATIVE Support: Ongoing Emotional: Coping well Assessment & [...] Tolerating full oral diet. Weight is stable. SERVICE CENTER REPRESENTATIVE Support: Ongoing Emotional: Coping well Assessment & [...] Tolerating full oral diet. Weight is stable. SERVICE CENTER REPRESENTATIVE Support: Ongoing Emotional: Coping well Assessment & [...] Tolerating full oral diet. Weight is down. SERVICE CENTER REPRESENTATIVE Support: Ongoing Emotional: Coping well Assessment & [...] indicated Nutritional Support: Tolerating full oral diet. SERVICE CENTER REPRESENTATIVE Support: Ongoing Emotional: Coping well Assessment & [...] indicated Nutritional Support: Tolerating full oral diet. SERVICE CENTER REPRESENTATIVE Support: Ongoing Emotional: Coping well Assessment & [...] medications scheduled. a. Therapy Complete Rudolph [place], MANAGER AMBULATORY TREATMENT PLAN Plan Name Start Date Discontinue [...]
--- OUTSIDE RECORDS SUMMARY | 2025-05-04 20:04 | XMS_ITS | Encounter Summary ---
Author Organization [facility] Address [address] [facility] [address] [place] [address] Phone Care Team Providers Care Ultrasound Spec Name Role Phone Vu Oconnell MD Primary Care Provider Self-Referred, Patient Unavailable Unavailab Ghassan Grayson MD, PhD Unavailable [phone] Satya Jiang RN Unavailable [facility] [email or web address] Ivana Schuster RN Unavailable JOSE ANTONIO [email or web address] Fawn Baker RN Unavailable [place] [email or web address] Jareth Becker MD Unavailable [phone] Dante Lara MD, DMD Unavailable [phone] Lori Ayala RN Unavailable Encounter Details Date Type Department Care Team (Late st Contact Info) Description 09/26/2022 Procedure Pass [facility] Periop [address] [place] [address] Social History Tobacco Use Types Packs/Day Years [...] 8:30 AM EDT Blood Draw Laboratory Services, [address], [address] [place] [address] Yang Pittman MD [address] [place] [phone] [email or web address] 06/18/2025 9:15 AM EDT Office Visit [facility], [address], [address] [place] [address] Dante Lara MD, DMD [address] [place] [phone] [email or web address]. [email or web address] 06/18/2025 9:30 AM EDT Office Visit [facility], [address], [address] [place] [address] Dante Lara MD, DMD [address] [place] [address] [email or web address]. Jareth Ceron MD [address] [place] [address] [phone] Concepcion@[email or web address] documented as of this encounter Visit Diagnoses Not on filedocumented in this encounter Additional Health Concerns Infection Onset Date Last Indicated Resolved Time COVID-19 Comment:Sx onset 12/25/22 Test 12/27/22 12/25/2022 12/27/2022 01/14/2023 1:21 AM E DT documented as of this encounter Care Teams Ultrasound Spec Relationship Specialty Start Date End Date Vu Oconnell MD [address] [place] [address] PCP - General Family Medicine 08/11/22 Self-Referred, Patient 08/11/22 Ghassan Martinez MD, PhD [address] [place] [address] [email or web address] Radiation Oncology 08/29/22 Satya Jiang RN [address] [place] [address] [email or web address] Primary Infusion Nurse 09/28/22 11/25/23 Ivana Schuster, RN [address] [place] [phone] WILLIAM@[email or web address] Associate Infusion Nurse 09/28/22 Fawn Baker, WISAM [address] [place] [phone] [email or web address] Primary Infusion Nurse 09/28/22 Jareth Becker MD [address] [place] [address] [phone] Concepcion@[email or web address] Primary Oncologist Medical Oncology 09/27/23 Dante Lara MD, DMD [address] [place] [address] [phone] [email or web address] u Surgeon Otolaryngology 09/27/23 Lori Ayala RN [address] [place], [place] [phone] [email or web address] [facility] Associate Infusion Nurse 10/19/21 documented as of this encounter Additional Source Comments The information contained in this document represents components of the legal health record. It is not the complete legal health record.[facility]
--- OUTSIDE RECORDS SUMMARY | 2025-05-04 20:04 | XMS_ITS | Clinical Summary ---
Author Organization [facility] Address [address] [place] [address] [place] [address] Phone Care Team Providers Care Parts Professional Name Role Phone Vu Oconnell MD Primary Care Provider Self-Referred, Patient Unavailable Unavailab Ghassan Grayson MD, PhD Unavailable [phone] Ivana Schuster RN Unavailable JOSE ANTONIO [email or web address] Fawn Baker RN Unavailable [place] [email or web address] Jareth Becker MD Unavailable [phone] Dante Lara MD, DMD Unavailable [phone] Lori Ayala RN Unavailable Allergies No known [...] to prescribing the opioid, I utilized the [place] Prescription Awareness Tool (MassPAT) website to review [...] to prescribing the opioid, I utilized the ActiveCloud Prescription Awareness Tool (MassPAT) website to review [...] Tolerating a full diet. Weight is stable. TELEGRAPHER AGENT Support: Ongoing Emotional: Coping well Assessment & Plan (02/01/2023 10:17 PM EDT): Treatment: Bolus Cisplatin + XRT o Although still symptomatic and TSH remains suppressed, her FT4 is back down to normal. Will continue to monitor. o Continue metoprolol to manage cardiac symptoms of hyperthyroidism Oral Care / Dental Hygiene: Oral rinses as indicated Nutritional Support: Tolerating a full diet. Weight is stable. TELEGRAPHER AGENT Support: Ongoing Emotional: Coping well Assessment & [...] Tolerating full oral diet. Weight is down. TELEGRAPHER AGENT Support: Ongoing Emotional: Coping well Assessment & [...] Tolerating full oral diet. Weight is stable. TELEGRAPHER AGENT Support: Ongoing Emotional: Coping well Assessment & [...] Tolerating full oral diet. Weight is stable. TELEGRAPHER AGENT Support: Ongoing Emotional: Coping well Assessment & [...] Tolerating full oral diet. Weight is stable. TELEGRAPHER AGENT Support: Ongoing Emotional: Coping well Assessment & [...] Tolerating full oral diet. Weight is down. TELEGRAPHER AGENT Support: Ongoing Emotional: Coping well Assessment & [...] indicated Nutritional Support: Tolerating full oral diet. TELEGRAPHER AGENT Support: Ongoing Emotional: Coping well Assessment & [...] indicated Nutritional Support: Tolerating full oral diet. 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 Orders Only [facility], [facility] [address] [facility], [address]th [place] [address] Yang Pittman MD Squamous cell carcinoma metastatic [...] 8:30 AM EDT Blood Draw Laboratory Services, [address], [address] [place] [address] Yang Pittman MD [address] [place] [phone] [email or web address] 06/18/2025 9:15 AM EDT Office Visit [facility], [address], [address] [place] [address] Dante Lara MD, DMD [address] [place] [address] [email or web address] [place]olis 06/18/2025 9:30 AM EDT Office Visit [facility], [address], [address] [place] [address] Dante Lara MD, DMD [address] [place] [address] [email or web address]. Jareth Ceron MD [facility] [place] [phone] [email or web address] the [facility] Health Maintenance Due Date Last Done Comments [...] EDT) HPV ctDNA to [facility] (NavDX) [facility] LIC# [id number] Blood 02/26/2025 11:2 7 AM EDT 02/26/2025 11:34 AM EDT us Yang Pittman MD LAB BLOOD ORDERABLES Final Resu lt Performing Organization Address [facility]/ZIP Co de Phone Number [facility] LIC# [id number] [address] [place] [address] * Pap Test (09/26/2022 12:00 AM EST) 09/26/2022 09/28/[address] [facility] - 10/03/2022 3:54 PM EST CASE: [id number] PATIENT: LEOLA RIOS Date: 1990 Sex: F [facility] Department of Pathology [address] [place] [address] CLIA License No.: [id number] Fashion Supervisor: Magdiel Balderas MD, PhD Physician: IMANI CARLISLE MD Procedure Date: 09/26/2022 Superintendent Meters: MINERVA Saha (ASCP) THINPREP PAP TEST, CERVICAL FINAL CYTOLOGIC INTERPRETATION SPECIMEN ADEQUACY: Satisfactory for evaluation; transformation zone present. INTERPRETATION: NEGATIVE FOR INTRAEPITHELIAL LESION OR MALIGNANCY. AUTOMATED REVIEW: This specimen was prescreened using the ThinPrep Imaging System. CLINICAL DATA LMP: Unknown; Routine pap screening with HPV cotesting TOTAL SLIDES 1 PROCEDURES Screening or High Risk ThinPrep with Auto Pre-Screen - [facility] 1 Final Diagnosis by Sravani PALMA (ASCP), Electronically signed on Monday October 03, 2022 at 03:02:49PM us Imani Carlisle MD CYTOLOGY ORDERABLES Final Result Performing Organization Address [facility] Co de Phone Number [facility] [address] [place] [address] * Hepatitis C antibody, qualitative (09/13/2022 12:09 PM EST) HCV Nonreactive Nonreactive [facility] Comment: Blood 09/13/2022 12:0 9 PM EST 09/13/2022 12:44 PM EST Sandra Oliver MD LAB BLOOD ORDERABLES Final Result [facility] [address] [place] [address] from Last 3 Months or Most Recently Relevant to Health Maintenance [place] [address] [place] [address] [place] [address] Care Teams Parts Professional Relationship Specialty Start Date End Date Vu Oconnell MD [address] [place] [address] PCP - General Family Medicine 08/11/22 Self-Referred, Patient 08/11/22 Ghassan Martinez MD, PhD [address] [place], [place] [address]- [address] [address] [email or web address] Radiation Oncology 08/29/22 Ivana Schuster RN [address] [place] [phone] [email or web address] Associate Infusion Nurse 09/28/22 Fawn Baker RN [address] [place] [phone] [email or web address] Primary Infusion Nurse 09/28/22 Jareth Becker MD [address] [place] [address] [phone] Concepcion@[email or web address] Primary Oncologist Medical Oncology 09/27/23 Dante Lara MD, DMD [address] [place] [phone] [email or web address]. u Surgeon Otolaryngology 09/27/23 Lroi Ayala RN [address] [place] [phone] [email or web address] Associate Infusion Nurse 10/19/21 Additional Source Comments The information contained in this document represents components of the legal health record. It is not the complete legal health record.[facility]
--- OUTSIDE RECORDS SUMMARY | 2025-05-04 20:04 | XMS_ITS | Encounter Summary ---
Author Organization [facility] Address [address] [facility] [address] [place] [address] Phone Care Team Providers Care Vehicle Maintenance Supervisor Name Role Phone Vu Oconnell MD Primary Care Provider Self-Referred, Patient Unavailable Unavailab Ghassan Grayson MD, PhD Unavailable [phone] Satya Jiang RN Unavailable [facility] [email or web address] Ivana Schuster RN Unavailable JOSE ANTONIO HURST@[email or web address] Fawn Baker RN Unavailable [place] [email or web address].[email or web address] Jareth Becker MD Unavailable [phone] Dante Lara MD, DMD Unavailable [phone] Lori Ayala RN Unavailable Encounter Details Date Type Department Care Team (Late st Contact Info) Description 09/01/2022 Procedure Pass [facility] Periop [address] [place] [address] Social History Tobacco Use Types Packs/Day Years [...] 8:30 AM EDT Blood Draw Laboratory Services, [address], [address]nd [place] [address] Yang Pittman MD [address] [place] [phone] [email or web address] 06/18/2025 9:15 AM EDT Office [facility], [address], [address] [place] [phone] Dante Lara MD, DMD [address] [place] [phone] [email or web address] [place] 06/18/2025 9:30 AM EDT Office Visit [facility], [address], [address] [place] [phone] Dante Lara MD, DMD [address] [place] [address] [email or web address]. Jareth Ceron MD [address] [place] [phone] Concepcion@[email or web address] documented as of this encounter Visit Diagnoses Not on filedocumented in this encounter Additional Health Concerns Infection Onset Date Last Indicated Resolved Time COVID-19 Comment:Sx onset 12/25/22 Test 12/27/22 12/25/2022 12/27/2022 01/14/2023 1:21 AM E DT documented as of this encounter Care Teams Vehicle Maintenance Supervisor Relationship Specialty Start Date End Date Vu Oconnell MD [address] [place] [address] PCP - General Family Medicine 08/11/22 Self-Referred, Patient 08/11/22 Ghassan Martinez MD, PhD [address] [place] [address], [address] [address] Nuria@[facility] Radiation Oncology 08/29/22 Satya Jiang, WISAM [address] [place] [phone] [email or web address] Primary Infusion Nurse 09/28/22 11/25/23 Ivana Schuster, WISAM [address] [place] [phone] WILLIAM@[facility] Associate Infusion Nurse 09/28/22 Fawn Baker RN [address] [place] [address] Candida@[facility] Primary Infusion Nurse 09/28/22 Jareth Becker MD [address] [place] [phone] Concepcion@[facility] Primary Oncologist Medical Oncology 09/27/23 Dante Lara MD, DMD [address] [place] [phone] [email or web address]. u Surgeon Otolaryngology 09/27/23 Lori Ayala RN [address] [place] [phone] MYRON@[email or web address] Associate Infusion Nurse 10/19/21 documented as of this encounter Additional Source Comments The information contained in this document represents components of the legal health record. It is not the complete legal health record.[facility]
== END 2025-05-04 17:05 | disposition home or self-care (01) ==
LOC: HO.HMCFM 14:37
PROVIDERS: PCP Family Medicine; Visit Provider Family Medicine
DX: E03.9 Hypothyroidism, unspecified (principal); R74.01 Elevation of levels of liver transaminase levels; L72.9 Follicular cyst of the skin and subcutaneous tissue, unspecified

== ENCOUNTER 2025-07-03 08:20 | Outpatient (REF) | payer BC, SELFPAY ==
--- NOTE | ~2025-07-03 | FL_ITS ---
EXAMINATION: XR BARIUM SWALLOW CLINICAL INFORMATION: Gastroesophageal reflux disease without esophagitis COMPARISON: None available. TECHNIQUE: Barium swallow was performed using thin and thick barium and effervescent granules. Barium tablet was also administered. FINDINGS: The swallowing mechanism is normal. No aspiration or penetration. Esophageal motility is normal. There is mild gastroesophageal reflux. There is slight mucosal irregularity questionable for mild mid and distal esophagitis. No mass or stricture. No hernia. Barium tablet passed into the stomach. FLUOROSCOPY TIME: 1 minute 40 seconds DOSE AREA PRODUCT: 1104 uGy-m2 (microgray-meter squared) FL/FL barium swallow with air IMPRESSION: Gastroesophageal reflux and question mild esophagitis. Electronically signed by: Lizzeth Barton MD 07/03/2025 03:58 PM [facility]
--- OUTSIDE RECORDS SUMMARY | 2025-07-03 08:31 | XMS_ITS | Encounter Summary ---
Author Organization [facility] Address [address] [place] [address] Phone Care Team Providers Care Phys Assistant Name Role Phone Vu Oconnell MD Primary Care Provider Self-Referred, Patient Unavailable Unavailab Ghassan Grayson MD, PhD Unavailable + [phone] Satya Jiang RN Unavailable [facility] [email or web address] Ivana Schuster RN Unavailable JOSE ANTONIO [email or web address] Fawn Baker RN Unavailable [place] [email or web address].[facility] Jareth Becker MD Unavailable [phone] Dante Lara MD, DMD Unavailable [phone] Lori Ayala RN Unavailable Encounter Details Date Type Department Care Team (Late st Contact Info) Description 03/29/2023 Procedure Pass [facility] [address] [place] [address] Social History Tobacco Use Types Packs/Day Years [...] Care Team (Late st Contact Info) Description 09/17/2025 10:00 AM EST Office Visit [facility], [facility] [address] [address] Jareth Becker MD [address] [place] [address] [email or web address] 09/17/2025 10:30 AM EST Office Visit [facility], [facility] [address], [address] [place] [address] Dante Lara MD, [address] [phone] [email or web address] du documented as of this encounter Visit Diagnoses Not on filedocumented in this encounter Care Teams Phys Assistant Relationship Specialty Start Date End Date Vu Oconnell MD PCP - General Family Medicine 08/11/22 Self-Referred, Patient 08/11/22 Ghassan Martinez MD, PhD [address] [place] [address] [email or web address]@[email or web address] Radiation Oncology 08/29/22 Satya Jiang, WISAM [address] [place] [phone] Nixon@[email or web address] Primary Infusion Nurse 09/28/22 11/25/23 Ivana Schuster RN [address] [place] [phone] WILLIAM@[facility] Associate Infusion Nurse 09/28/22 Fawn Baker RN [address] [place] [phone] Candida@[facility] Primary Infusion Nurse 09/28/22 Jareth Becker MD [address] [place] [address] Concepcion@[email or web address] Primary Oncologist Medical Oncology 09/27/23 Dante Lara MD, DMD [address] [place] [phone] [email or web address]. u Surgeon Otolaryngology 09/27/23 Lori Ayala RN [address] [place] [address] MYRON@[email or web address] Associate Infusion Nurse 10/19/21 documented as of this encounter Additional Source Comments The information contained in this document represents components of the legal health record. It is not the complete legal health record.[facility]
--- OUTSIDE RECORDS SUMMARY | 2025-07-03 08:31 | XMS_ITS | Encounter Summary ---
Author Organization [facility] Address [address] [facility] [address] [place] [address] Phone Care Team Providers Care Jailer Chief Name Role Phone Vu Oconnell MD Primary Care Provider Self-Referred, Patient Unavailable Unavailab Ghassan Grayson MD, PhD Unavailable + [phone] Satya Jiang RN Unavailable [facility] [email or web address].[facility] Ivana Schuster RN Unavailable JOSE ANTONIO HURST@[email or web address].[email or web address].[facility] Fawn Baker RN Unavailable [place] [email or web address] Jareth Becker MD Unavailable [phone] Dante Lara MD, DMD Unavailable [phone] Lori Ayala RN Unavailable Encounter Details Date Type Department Care Team (Late st Contact Info) Description 2023 Procedure Pass [facility] MR Imaging, [place] [address] [place] [address] Social History Tobacco Use Types Packs/Day Years [...] Visit [facility], [facility] [address] [address] Jareth Becker MD [address] [place] [address] Concepcion@[facility] 09/17/2025 10:30 AM EST Office Visit [facility], [facility] [address], [address] [place] [address] Dante Lara MD, [address] [address] [email or web address] du documented as of this encounter Visit Diagnoses Not on filedocumented in this encounter Care Teams Jailer Chief Relationship Specialty Start Date End Date Vu Oconnell MD PCP - General Family Medicine 08/11/22 Self-Referred, Patient 08/11/22 Ghassan Martinez MD, PhD [address] [place] [address] Nuria@[facility] Radiation Oncology 08/29/22 Satya Jiang, WISAM [address] [place] [address] Nixon@[email or web address] Primary Infusion Nurse 09/28/22 11/25/23 Ivana Schuster RN [address] [place] [address] WILLIAM@[facility] Associate Infusion Nurse 09/28/22 Fawn Baker RN [address] [place] [phone] Candida@[facility] Primary Infusion Nurse 09/28/22 Jareth Becker MD [address] [place] [address] Concepcion@[facility] Primary Oncologist Medical Oncology 09/27/23 Dante Lara MD, DMD [address] [place] [address] [email or web address]. u Surgeon Otolaryngology 09/27/23 Lori Ayala RN [address] [place] [phone] MYRON@[facility] Associate Infusion Nurse 10/19/21 documented as of this encounter Additional Source Comments The information contained in this document represents components of the legal health record. It is not the complete legal health record.[facility]
--- OUTSIDE RECORDS SUMMARY | 2025-07-03 08:31 | XMS_ITS | Encounter Summary ---
Author Organization [facility] Address [address] [facility] [address] [place] [address] Phone Care Team Providers Care Satellite Communications Engineer Name Role Phone Vu Oconnell MD Primary Care Provider Self-Referred, Patient Unavailable Unavailab Ghassan Grayson MD, PhD Unavailable + [phone] Satya Jiang RN Unavailable [facility] [email or web address] Ivana Schuster RN Unavailable JOSE ANTONIO HURST@[facility].[place].[facility] Fawn Baker RN Unavailable [place] [email or web address] Jareth Becker MD Unavailable [phone] Dante Lara MD, DMD Unavailable [phone] Lori Ayala RN Unavailable Encounter Details Date Type Department Care Team (Late st Contact Info) Description 09/01/2022 Procedure Pass [facility] Periop [address] [place] [address] Social History Tobacco Use Types Packs/Day Years [...] Visit [facility], [address], [address] [place] [address] Jareth Becker MD [address] [place] [address] Concepcion@[facility] 09/17/2025 10:30 AM EST Office Visit [facility], [address], [address] [place] [address] Dante Lara MD, DMD [address] [place] [address] [email or web address] du documented as of this encounter Visit Diagnoses Not on filedocumented in this encounter Additional Health Concerns Infection Onset Date Last Indicated Resolved Time COVID-19 Comment:Sx onset 12/25/22 Test 12/27/22 12/25/2022 12/27/2022 01/14/2023 1:21 AM E DT documented as of this encounter Care Teams Satellite Communications Engineer Relationship Specialty Start Date End Date Vu Oconnell MD PCP - General Family Medicine 08/11/22 Self-Referred, Patient 08/11/22 Ghassan Martinez MD, PhD [address] [place] [phone] Nuria@[facility] Radiation Oncology 08/29/22 Satya Jiang RN [address] [place] [phone] Nixon@[email or web address] Primary Infusion Nurse 09/28/22 11/25/23 Ivana Schuster, WISAM [address] [place] [phone] WILLIAM@[facility] Associate Infusion Nurse 09/28/22 Fawn Baker RN [address] [place] [address] Candida@[facility] Primary Infusion Nurse 09/28/22 Jareth Becker MD [address] [place] [address] Concepcion@[facility] Primary Oncologist Medical Oncology 09/27/23 Dante Lara MD, DMD [address] [place] [address] [email or web address] u Surgeon Otolaryngology 09/27/23 Lori Ayala RN [address] [place] [address] MYRON@[email or web address] Associate Infusion Nurse 10/19/21 documented as of this encounter Additional Source Comments The information contained in this document represents components of the legal health record. It is not the complete legal health record.[facility]
--- OUTSIDE RECORDS SUMMARY | 2025-07-03 08:31 | XMS_ITS | Encounter Summary ---
Author Organization [facility] Address [address] [facility] [address] [place] [address] Phone Care Team Providers Care Brim Ironer Hand Name Role Phone Vu Oconnell MD Primary Care Provider Self-Referred, Patient Unavailable Unavailab Ghassan Grayson MD, PhD Unavailable + [phone] Satya Jiang RN Unavailable [facility] [email or web address] Ivana Schuster RN Unavailable JOSE ANTONIO HURST@[facility].[place].[facility] Fawn Baker RN Unavailable [place] [email or web address].[facility] Jarteh Becker MD Unavailable [phone] Dante Lara MD, DMD Unavailable [phone] Lori Ayala RN Unavailable Encounter Details Date Type Department Care Team (Late st Contact Info) Description 12/01/2022 Procedure Pass [facility] Imaging Department, [facility] [place], PET/CT [address] [facility] [place] [address] Social History Tobacco Use Types Packs/Day Years [...] [facility], [place] [address] Jareth Becker MD [address] [place], [place] [phone] Jareth_Rosita@[email or web address] 09/17/2025 10:30 AM EST Office Visit [facility], [address] [address] Dante Lara MD, [place] [address] [email or web address], located [facility].e du documented as of this encounter Visit Diagnoses Not on filedocumented in this encounter Additional Health Concerns Infection Onset Date Last Indicated Resolved Time COVID-19 Comment:Sx onset 12/25/22 Test 12/27/22 12/25/2022 12/27/2022 01/14/2023 1:21 AM E DT documented as of this encounter Care Teams Brim Ironer Hand Relationship Specialty Start Date End Date Vu Oconnell MD PCP - General Family Medicine 08/11/22 Self-Referred, Patient 08/11/22 Ghassan Martinez MD, PhD [address] [place] [phone] Nuria@[email or web address] Radiation Oncology 08/29/22 Satya Jiang, WISAM [address] [place] [phone] Nixon@[facility] Primary Infusion Nurse 09/28/22 11/25/23 Ivana Schuster RN [address] [place] [phone] WILLIAM@[facility] Associate Infusion Nurse 09/28/22 Fawn Baker RN [address] [place] [phone] Candida@[email or web address] Primary Infusion Nurse 09/28/22 Jareth Becker MD [address] [place] [address] Concepcion@[email or web address] Primary Oncologist Medical Oncology 09/27/23 Dante Lara MD, DMD [address] [place] [address] [email or web address], located within [facility].ed u Surgeon Otolaryngology 09/27/23 Lori Ayala RN [address] [place] [address] MYRON@[facility] Associate Infusion Nurse 10/19/21 documented as of this encounter Additional Source Comments The information contained in this document represents components of the legal health record. It is not the complete legal health record.[facility]
--- OUTSIDE RECORDS SUMMARY | 2025-07-03 08:31 | XMS_ITS | Encounter Summary ---
Author Organization [facility] Address [address] [facility] [address] [place] [address] Phone Care Team Providers Care Manager Online Name Role Phone Vu Oconnell MD Primary Care Provider Self-Referred, Patient Unavailable Unavailab Ghassan Grayson MD, PhD Unavailable + [phone] Satya Jiang RN Unavailable [facility] [email or web address] Ivana Schuster RN Unavailable JOSE ANTONIO HURST@[facility] Fawn Baker RN Unavailable [place] [email or web address].[place].[facility] Jareth Becker MD Unavailable [phone] Dante Lara MD, DMD Unavailable [phone] Lori Ayala RN Unavailable Encounter Details Date Type Department Care Team (Late st Contact Info) Description 09/14/2022 Procedure Pass [facility] [place] [address] [facility], Floor [address] [place] [address] Social History Tobacco Use Types Packs/Day Years [...] Visit [facility], [address], [address] [place] [address] Jareth Becker MD [address] [place] [address] Concepcion@[facility] 09/17/2025 10:30 AM EST Office Visit [facility], [address], [address] [place] [address] Dante Lara MD, DMD [address] [place] [address] [email or web address] du documented as of this encounter Visit Diagnoses Not on filedocumented in this encounter Additional Health Concerns Infection Onset Date Last Indicated Resolved Time COVID-19 Comment:Sx onset 12/25/22 Test 12/27/22 12/25/2022 12/27/2022 01/14/2023 1:21 AM E DT documented as of this encounter Care Teams Manager Online Relationship Specialty Start Date End Date Vu Oconnell MD PCP - General Family Medicine 08/11/22 Self-Referred, Patient 08/11/22 Ghassan Martinez MD, PhD [address] [place] [address], ASB1- [address]2 [place] [address] Nuria@[facility] Radiation Oncology 08/29/22 Satya Jiang RN [address] [place] [address], ASB1- [address]2 [place] [address] Nixon@[email or web address] Primary Infusion Nurse 09/28/22 11/25/23 Ivana Schuster RN [address] [place] [phone] WILLIAM@[facility] Associate Infusion Nurse 09/28/22 Fawn Baker RN [address] [place] [address] Candida@[facility] Primary Infusion Nurse 09/28/22 Jareth Becker MD [address] [place] [address] Concepcion@[email or web address] Primary Oncologist Medical Oncology 09/27/23 Dante Lara MD, DMD [address] [place] [address] [email or web address]. u Surgeon Otolaryngology 09/27/23 Lori Ayala RN [address] [place] [phone] MYRON@[email or web address] Associate Infusion Nurse 10/19/21 documented as of this encounter Additional Source Comments The information contained in this document represents components of the legal health record. It is not the complete legal health record.[facility]
--- OUTSIDE RECORDS SUMMARY | 2025-07-03 08:32 | XMS_ITS | Clinical Summary ---
Author Organization [facility] Address [address] [place] [address] [place] [address] Phone Care Team Providers Care Family Practice Md Name Role Phone Vu Oconnell MD Primary Care Provider Self-Referred, Patient Unavailable Unavailab Ghassan Grayson MD, PhD Unavailable [phone] Ivana Schuster RN Unavailable JOSE ANTONIO [email or web address] Fawn Baker RN Unavailable [place] [email or web address] Jareth Becker MD Unavailable [phone] Dante Lara MD, DMD Unavailable [phone] Lori Ayala RN Unavailable Allergies No known [...] 100 UnitsIndications:Spasmodic torticollis 100 Units IM Once 06/18/2025 09/16/2025 Active Active Problems Problem Noted Date Diagnosed [...] to prescribing the opioid, I utilized the [facility] Prescription Awareness Tool (MassPAT) website to review [...] to prescribing the opioid, I utilized the [employer] Prescription Awareness Tool (MassPAT) website to review [...] Tolerating a full diet. Weight is stable. SILO MAN Support: Ongoing Emotional: Coping well Assessment & Plan (02/01/2023 10:17 PM EDT): Treatment: Bolus Cisplatin + XRT o Although still symptomatic and TSH remains suppressed, her FT4 is back down to normal. Will continue to monitor. o Continue metoprolol to manage cardiac symptoms of hyperthyroidism Oral Care / Dental Hygiene: Oral rinses as indicated Nutritional Support: Tolerating a full diet. Weight is stable. SILO MAN Support: Ongoing Emotional: Coping well Assessment & [...] Tolerating full oral diet. Weight is down. SILO MAN Support: Ongoing Emotional: Coping well Assessment & [...] Tolerating full oral diet. Weight is stable. SILO MAN Support: Ongoing Emotional: Coping well Assessment & [...] Tolerating full oral diet. Weight is stable. SILO MAN Support: Ongoing Emotional: Coping well Assessment & [...] Tolerating full oral diet. Weight is stable. SILO MAN Support: Ongoing Emotional: Coping well Assessment & [...] Tolerating full oral diet. Weight is down. SILO MAN Support: Ongoing Emotional: Coping well Assessment & [...] indicated Nutritional Support: Tolerating full oral diet. SILO MAN Support: Ongoing Emotional: Coping well Assessment & [...] indicated Nutritional Support: Tolerating full oral diet. SILO MAN Support: Ongoing Emotional: Coping well Assessment & [...] Encounters Date Type Department Care Team Description 06/18/2025 9:30 AM EDT [facility], [facility] [address] [place] [address] Dante Lara MD, DMD Jareth Becker MD History of malignant neoplasm of oropharynx (Primary Dx) 06/18/2025 9:15 AM EDT Office Visit [facility], [facility] [address] [place] [address] Dante Lara MD, DMD Spasmodic torticollis (Primary Dx) from Last 3 Months Family [...] Orientation Straight 08/11/2022 2: 59 PM EST Last Filed Vital Signs Vital Sign Reading Time Taken Comments Blood Pressure 102/60 06/18/2025 9:17 AM EDT Pulse 67 06/18/2025 9:17 AM EDT Temperature 36.8 C (98.3 F) 06/18/2025 9:16 AM EDT Respiratory Rate 18 06/18/2025 9:13 AM EDT Oxygen Saturation 98% 06/18/2025 9:17 AM EDT Inhaled Oxygen Concentration - - Weight 75.3 kg (166 lb 0.1 oz) 06/18/2025 9:13 A M EDT Height 168 cm (5' 6.14 ) 06/18/2025 9:13 AM EDT Body Mass Index 26.68 06/18/2025 9:13 AM EDT Plan of Treatment Upcoming Encounters Date Type Department Care Team (Late st Contact Info) Description 09/17/2025 10:00 AM EST Office [facility], [address], [address] [place] [address] Jareth Becker MD [address] [place] [address] [email or web address] 09/17/2025 10:30 AM EST Office Visit [facility], [facility] [address], [address] [place] [address] Dante Lara MD, [address] [address] [email or web address] Health Maintenance Due Date Last Done Comments Adult Td,Tdap Booster 1990 DEPRESSION SCREENING 2002 SMOKING Hx and SMOKELESS TOBACCO SCREENING 2003 PNEUMOCOCCAL VACCINES (0-49 years) (1 of 2 - PCV) 2009 INFLUENZA VACCINE (#1) 2025 COVID-19 VACCINE (1 - 2024-2 6 season) 2025 PAP SMEAR 09/26/2025 09/26/2022, 09/26/2022 SCREENING FOR DIABETES 03/29/2026 03/29/2023 HEPATITIS C SCREENING Completed 09/13/2022 , 09/13/2022 HIV ONE-TIME SCREENING (18-6 5 YEARS) Completed 09/13/2022 HEPATITIS A VACCINES Aged Out No long er eligible based on patient's age to complete this topic HIB VACCINES Aged Out No longer eligi ble based on patient's age to complete this topic IPV VACCINES Aged Out No longer eligi ble based on patient's age to complete this topic MENINGOCOCCAL VACCINES (ACWY) Aged Out No longer eligible based on patient's age to complete this topic MENINGOCOCCAL VACCINES (B) Aged Out N o longer eligible based on patient's age to complete this topic Medical Devices Not on file Procedures Procedure Name Priority Date/Time Associated Diagnosis Comments PAP TEST Routine 09/26/2022 12:00 AM EST HEPATITIS C ANTIBODY, QUALITATIVE Routine 09/13/2022 12:09 PM EST Need for hepatitis C screening test from Last 3 Months or Most Recently Relevant to Health Maintenance Results * Pap Test (09/26/2022 12:00 AM EST) 09/26/2022 09/28/2022 Narrative [facility] - 10/03/2022 3:54 PM EST CASE: [id number] PATIENT: LEOLA RIOS Date: 1990 Sex: F [facility] Department of Pathology [address] [place] [address], [place], [place] [facility] CLIA License No.: [id number] Epidemiology Internship: Magdiel Balderas MD, PhD Physician: IMANI CARLISLE MD Procedure Date: 09/26/2022 Encyclopedia Research Worker: MINERVA Saha (ASCP) THINPREP PAP TEST, CERVICAL FINAL CYTOLOGIC INTERPRETATION SPECIMEN ADEQUACY: Satisfactory for evaluation; transformation zone present. INTERPRETATION: NEGATIVE FOR INTRAEPITHELIAL LESION OR MALIGNANCY. AUTOMATED REVIEW: This specimen was prescreened using the ThinPrep Imaging System. CLINICAL DATA LMP: Unknown; Routine pap screening with HPV cotesting TOTAL SLIDES 1 PROCEDURES Screening or High Risk ThinPrep with Auto Pre-Screen - [facility] 1 Final Diagnosis by Sravani PALMA (ASCP), Electronically signed on Monday October 03, 2022 at 03:02:49PM Imani Carlisle MD CYTOLOGY ORDERABLES Final Result Performing Organization Address City/[facility]/ZIP Co de Phone Number [facility] [address] [place] [place] [phone] * Hepatitis C antibody, qualitative (09/13/2022 12:09 PM EST) HCV Nonreactive Nonreactive [facility] Comment: Blood 09/13/2022 12:0 9 PM EST 09/13/2022 12:44 PM EST Sandra Oliver MD LAB BLOOD BKR ORDERA BLES Final Result Performing Organization Address City/[facility] Co de Phone Number [facility] [address] [place] [address] from Last 3 Months or Most Recently Relevant to Health Maintenance Insurance [facility] [place] [address] [place] [address] Care Teams Family Practice Md Relationship Specialty Start Date End Date Vu Oconnell MD PCP - General Family Medicine 08/11/22 Self-Referred, Patient 08/11/22 Ghassan Martinez MD, PhD [address] [place] [address], [facility] [place] [address] [email or web address] Radiation Oncology 08/29/22 Ivana Schuster RN [address] [place] [address] [email or web address] Associate Infusion Nurse 09/28/22 Fawn Baker RN [address] [place] [address] [email or web address] Primary Infusion Nurse 09/28/22 Jareth Becker MD [address] [place] [address] [email or web address] Primary Oncologist Medical Oncology 09/27/23 Dante Lara MD, DMD [address] [place] [address] [email or web address] u Surgeon Otolaryngology 09/27/23 Lori Ayala RN [address] [place] [address] [email or web address] Associate Infusion Nurse 10/19/21 Additional Source Comments The information contained in this document represents components of the legal health record. It is not the complete legal health record.[facility]
--- OUTSIDE RECORDS SUMMARY | 2025-07-03 08:32 | XMS_ITS ---
Author Organization [facility] Address [address] [place] [address] Phone Care Team Providers Care Counter Clerk [employer] Name Role Phone Vu Oconnell MD Primary Care Provider Self-Referred, Patient Unavailable Unavailab Ghassan Grayson MD, PhD Unavailable [phone] Ivana Schuster RN Unavailable JOSE ANTONIO [email or web address] Fawn Baker RN Unavailable [place] [email or web address] Jareth Becker MD Unavailable [phone] Dante Lara MD, DMD Unavailable [phone] Lori Ayala RN Unavailable Active Problems Problem [...] to prescribing the opioid, I utilized the [employer] Prescription Awareness Tool (MicroEval) website to review previous prescriptions. Assessment & [...] to prescribing the opioid, I utilized the [employer] Prescription Awareness Tool (MicroEval) website to review previous prescriptions. Squamous cell [...] Tolerating a full diet. Weight is stable. CENTRAL SUPPLY CLERK Support: Ongoing Emotional: Coping well Assessment & Plan (02/01/2023 10:17 PM EDT): Treatment: Bolus Cisplatin + XRT o Although still symptomatic and TSH remains suppressed, her FT4 is back down to normal. Will continue to monitor. o Continue metoprolol to manage cardiac symptoms of hyperthyroidism Oral Care / Dental Hygiene: Oral rinses as indicated Nutritional Support: Tolerating a full diet. Weight is stable. CENTRAL SUPPLY CLERK Support: Ongoing Emotional: Coping well Assessment & [...] Tolerating full oral diet. Weight is down. CENTRAL SUPPLY CLERK Support: Ongoing Emotional: Coping well Assessment & [...] Tolerating full oral diet. Weight is stable. CENTRAL SUPPLY CLERK Support: Ongoing Emotional: Coping well Assessment & [...] Tolerating full oral diet. Weight is stable. CENTRAL SUPPLY CLERK Support: Ongoing Emotional: Coping well Assessment & [...] Tolerating full oral diet. Weight is stable. CENTRAL SUPPLY CLERK Support: Ongoing Emotional: Coping well Assessment & [...] Tolerating full oral diet. Weight is down. CENTRAL SUPPLY CLERK Support: Ongoing Emotional: Coping well Assessment & [...] indicated Nutritional Support: Tolerating full oral diet. CENTRAL SUPPLY CLERK Support: Ongoing Emotional: Coping well Assessment & [...] indicated Nutritional Support: Tolerating full oral diet. CENTRAL SUPPLY CLERK Support: Ongoing Emotional: Coping well Assessment & [...] medications scheduled. a. Therapy Complete Rudolph Mckinney, [employer]IN[employer] PROGRAMMER TREATMENT PLAN Plan Name Start Date Discontinue [...] cGy [id number] 09/28/2022 - 10/25/2022 200 cGy 7,000 cGy Reference Points Delivered [id number] 09/28/2022 - 11/17/2022 7,000 cGy Resolved Problems Problem Noted Date Diagnosed Date Resolved Date Tonsil asymmetry 08/25/2022 10/24/2022
--- OUTSIDE RECORDS SUMMARY | 2025-07-03 08:32 | XMS_ITS | Encounter Summary ---
Author Organization [facility] Address [address] [place] [address] [place] [address] Phone Care Team Providers Care Stockroom Associate Name Role Phone Vu Oconnell MD Primary Care Provider Self-Referred, Patient Unavailable Unavailab Ghassan Grayson MD, PhD Unavailable [phone] Satya Jiang RN Unavailable [facility] [email or web address] Ivana Schuster RN Unavailable JOSE ANTONIO [email or web address] Fawn Baker RN Unavailable [place] [email or web address] Jareth Becker MD Unavailable [phone] Dante Lara MD, DMD Unavailable [phone] Lori Ayala RN Unavailable Reason for Referral * MRI/CAT Scan - Closed Specialty Diagnoses / Procedures Referred By Contmehnaz t Referred To Contact Radiology Diagnoses Head and neck cancer Procedures NM PET CT Skull Base to Mid Thighs Nkechi Cottrell MD Phone: tel: fax: [email or web address] Referral ID Status Reason Start Date Expiration Date Visits Re quested Visits Authorized [id number] Closed 08/23/2022 08/23/2023 1 1 Encounter Details Date Type Department Care Team (Latest Contact Info) Description 08/23/2022 Transcribe Orders Virtual Department [address] [place] [address] Nkechi Cottrell MD [address] [place], [place] [address]waldemar Jones, [address] [place] [address] [email or web address] Head and neck cancer (Primary [...] Visit [facility] and [facility], [address], [address] [place] [address] Jareth Becker MD [address] [place] [address] [email or web address] 09/17/2025 10:30 AM EST Office Visit [facility], [address], [address] [place] [address] Dante Lara MD, [address] [address] [email or web address] documented as of this encounter Results * [...] additional suspicious FDG activity. Nkechi Cottrell MD IMG NM PET Final Resu lt documented in this encounter Visit Diagnoses Diagnosis Head and neck cancer- Primary Head and neck cancer documented in this encounter Additional Health Concerns Infection Onset Date Last Indicated Resolved Time COVID-19 Comment:Sx onset 12/25/22 Test 12/27/22 12/25/2022 12/27/2022 01/14/2023 1:21 AM E DT documented as of this encounter Care Teams Stockroom Associate Relationship Specialty Start Date End Date Vu Oconnell MD PCP - General Family Medicine 08/11/22 Self-Referred, Patient 08/11/22 Ghassan Martinez MD, PhD [address] [place] [address], [facility]- [address] [address] [email or web address] Radiation Oncology 08/29/22 Satya Jiang, RN [address] [facility], [address] [place] [address] [email or web address] Primary Infusion Nurse 09/28/22 11/25/23 Ivana Schuster RN [address] [place] [address] [email or web address] Associate Infusion Nurse 09/28/22 Fawn Baker RN [address] [place] [address] [email or web address] Primary Infusion Nurse 09/28/22 Jareth Becker MD [address] [place] [address] [email or web address] Primary Oncologist Medical Oncology 09/27/23 Dante Lara MD, DMD [address] [place] [address] [email or web address] Surgeon Otolaryngology 09/27/23 Lori Ayala RN [address] [place] [address] [email or web address] Associate Infusion Nurse 10/19/21 documented as of this encounter Additional Source Comments The information contained in this document represents components of the legal health record. It is not the complete legal health record.[facility]
== END 2025-07-03 08:21 | disposition home or self-care (01) ==
LOC: HO.XRAY 08:20
PROVIDERS: PCP Family Medicine; Visit Provider Nurse Practitioner
DX: R10.13 Epigastric pain (principal); K21.9 Gastro-esophageal reflux disease without esophagitis
CPT/HCPCS: 74221

== ENCOUNTER → 2025-07-03 08:21 | Outpatient (BNV) | payer BC, SELFPAY | PROVIDERS: PCP Family Medicine; Visit Provider Radiology Diagnostic Radiology | DX: K21.9 Gastro-esophageal reflux disease without esophagitis (principal) | CPT/HCPCS: 74221 ==

== ENCOUNTER 2025-07-10 13:50 | Outpatient (AMB) | payer BC, SELFPAY ==
[2025-07-10 13:54] VITALS: BP 99/57; BMI 26.1
--- NOTE | 2025-07-10 13:54 | A.OFFVIS_ITS ---
Vital Signs 07/10/25 13:54 Height 5 ft 6 in Weight 162 lb BMI 26.1 BP 99/57 L Blood Pressure Location Lt brachial Position Sitting Intake Visit Reasons: f/u barium swallow Intake Note: Leola presents in follow up of barium swallow study. CC: Patient denies having any new GI symptoms or concerns today. Account Support Rep Required: No Accompanied by: Self / Same As Patient Allergies No Known Allergies Allergy (Verified 07/10/25 13:57) HPI HPI f/u barium swallow: Details: Assessment & Plan (1) Epigastric pain: Code(s): R10.13 - Epigastric pain Category: Medical (2) GERD (gastroesophageal reflux disease): Code(s): K21.9 - Gastro-esophageal reflux disease without esophagitis Category: Medical Plan - The patient is a 34-year-old female presenting with symptoms consistent with GERD. - Reports symptomatic relief with current use of pantoprazole, notably no nocturnal awakenings and tolerance of spicy foods. - Constipation was associated with previous medications, famotidine and sucralfate, both of which have been halted. - Management includes thyroid medication, taken several hours apart from the pantoprazole to avoid absorption interference. - Upcoming diagnostic evaluations include a barium swallow test scheduled for July 03. The patient has not reported any specific dietary restrictions or allergies. The current regimen allows for spicy food consumption without discomfort due to effective management of GERD with pantoprazole. The patient is taking thyroid medication in the morning to ensure proper absorption and pantoprazole in the evening, aligning with current dietary practices. Next appointment after barium swallow and we also still have an EGD pending. Medications: Refilled pantoprazole (Protonix) 40 mg PO DAILY 30 tabs 6RF 30 days K21.9 - Gastro- esophageal reflux disease without esophagitis, R10.13 - Epigastric pain EGD BIOPSY BARIUM SWALLOW 07/03/2025 FINDINGS: The swallowing mechanism is normal. No aspiration or penetration. Esophageal motility is normal. There is mild gastroesophageal reflux. There is slight mucosal irregularity questionable for mild mid and distal esophagitis. No mass or stricture. No hernia. Barium tablet passed into the stomach. FLUOROSCOPY TIME: 1 minute 40 seconds DOSE AREA PRODUCT: 1104 uGy-m2 (microgray-meter squared) FL/FL barium swallow with air IMPRESSION: Gastroesophageal reflux and question mild esophagitis. TODAY'S VISIT [facility] Medical History Normal physical examination, routine Laboratory exam ordered as part of routine general medical examination Screening for cervical cancer In vitro fertilization Surgical History H/O laparoscopy History of tonsillectomy H/O lateral meniscus repair of left knee Family History Maternal Grandfather Diabetes Paternal Grandmother Lung cancer Other Mental health disorder Substance abuse Social History Household Members: None Both parents involved: No Caregiver staying overnight: No Housing: Apartment Are you a primary home care provider to a significant other at home: No Do you presently have visiting nurse or other home services: No 75 years or older and lives alone: No Alcohol intake: current Alcohol intake frequency: holidays/special occasions only Alcohol type: hard liquor Patient Tobacco Use Status: Former Tobacco user e-Cigarette/Vaping Use: Never Used Substance Use Type: Marijuana service: No Current occupational status: employed 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 Cognitive needs: No Hearing needs: Yes (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 customer success representative) Vision needs: No Review of Systems Const Denies fatigue, Denies fever(s), Denies night sweats, Denies poor appetite and Denies weight loss ENT Reports Normal hearing present, Denies dental pain, Denies dysphagia, Denies hearing loss, Denies mouth pain, Denies odynophagia, Denies throat swelling, Denies tongue swelling and Reports other (Dentition adequate) Card Reports no additional complaints Resp Reports no additional complaints GI Details: Denies abdominal pain, Denies melena, Denies bloating, Denies hematochezia, Reports constipation, Denies GI cramping, Denies dysphagia, Denies excessive flatus, Denies early satiety, Reports heartburn, Denies diarrhea, Denies nausea, Denies odynophagia, Denies vomiting and Denies hematemesis Skin/Breast Denies pruritus, Denies lesions, Denies rash and Denies jaundice Neuro Reports Normal hearing present and Denies Abnormal speech present Endo Denies fatigue Aller/Immun Denies throat swelling and Denies tongue swelling Physical Exam Vital Signs: Last Vital Signs BP 99/57 L 07/10/25 13:54 BMI result Body Mass Index 26.1 Const General: cooperative, no acute distress, well developed and well groomed Nutritional Appearance: well nourished Orientation/consciousness: oriented to person, oriented to place and oriented to time Limitations: No language barrier HEENT Head: Yes normocephalic and Yes atraumatic Eyes General: appearance normal, both eyes and all related structures Pupils: Equal, round and reactive pupils present Neck Neck: Yes normal visual inspection and Yes no lymphadenopathy Thyroid: Thyroid normal Resp Effort & Inspection: normal respiratory effort and able to speak in complete sentences Auscultation: clear to auscultation bilaterally Cardio Rate: regular rate Rhythm: regular rhythm Heart sounds: Normal, physiologic split S2 sound present Peripheral pulses: radial pulses present and posterior tibial pulses present GI Inspection: No distended and No Abdominal panniculus present Palpation (GI): Soft to palpation, nontender, no guarding, not rigid and No hepatosplenomegaly present Percussion: Yes normal to percussion Auscultation: normal bowel sounds Rectal Exam - Female: deferred Skin General skin exam: no rashes or lesions noted, turgor normal, skin not dry, no jaundice, No spider nevi and no striae Rashes: no rashes Nails: normal Neuro General: oriented to person, oriented to place and oriented to time Cranial nerves: Yes Equal, round and reactive pupils present and Yes Normal hearing present Speech: No Abnormal speech present Extrem General: Yes normal to inspection, No clubbing, No cyanosis and No edema Psych Appearance: grossly normal and well kempt Mental Status: mental status grossly normal Speech and movement: Normal speech and movement present Affect: normal affect Attitude: cooperative Thought process: Normal thought process present and not confabulating Thought content: Normal thought content present Insight: Good insight present (Psych) Judgement: Good judgement present (Psych) Results Reviewed Results Reviewed: BARIUM SWALLOW 07/03/2025 FINDINGS: The swallowing mechanism is normal. No aspiration or penetration. Esophageal motility is normal. There is mild gastroesophageal reflux. There is slight mucosal irregularity questionable for mild mid and distal esophagitis. No mass or stricture. No hernia. Barium tablet passed into the stomach. FLUOROSCOPY TIME: 1 minute 40 seconds DOSE AREA PRODUCT: 1104 uGy-m2 (microgray-meter squared) FL/FL barium swallow with air IMPRESSION: Gastroesophageal reflux and question mild esophagitis. Assessment & Plan Assessment & Plan (1) GERD (gastroesophageal reflux disease): Code(s): K21.9 - Gastro-esophageal reflux disease without esophagitis Category: Medical (2) Dyspepsia: Code(s): R10.13 - Epigastric pain Category: Medical Plan Subjective Follow-up for gastroesophageal reflux symptoms and recent testing. Barium swallow was reviewed and showed GERD with suspected esophageal irritation. Patient reports pantoprazole has been effective when taken consistently; symptoms tend to flare when doses are missed. Adherence has been challenging due to timing around thyroid medication (levothyroxine) based on oncology guidance to separate by several hours and to take thyroid medication prior to eating. Uses famotidine (Pepcid) occasionally for breakthrough symptoms with good rapid relief. Discussed moving pantoprazole to bedtime to simplify timing and improve adherence, and patient agrees. Relevant Past Medical, Social, and Family History - Takes levothyroxine for thyroid disease per oncology guidance (aiming for ~4 hours separation from other medications/food). Works in [employer]. Objective - Completed barium swallow: Demonstrated GERD with possible esophagitis/esophageal irritation. Assessment & Plan GERD with esophageal irritation: Persistent reflux symptoms with flares when pantoprazole is missed. Barium swallow confirms GERD and suggests esophageal irritation. Endoscopy has been ordered and is pending scheduling. - Continue pantoprazole; shift dosing to bedtime to improve adherence and avoid interaction with morning levothyroxine. - Famotidine (OTC Pepcid) may be used as needed for breakthrough symptoms. - Proceed with scheduled upper endoscopy (patient in queue); we will adjust follow-up based on timing/results. - Follow-up in 6 months; earlier if symptoms worsen or once endoscopy is completed. - Medication supply: continue current refills; 30-day supply acceptable. Patient may discuss insurance preferences with pharmacy; instructed to call if pharmacy requests are not received due to fax issues. - Reinforced separation of levothyroxine from other medications/food per prior guidance; bedtime pantoprazole dosing to simplify regimen. Medications: Changed From pantoprazole (Protonix) 40 mg PO DAILY 30 days 30 tabs 6RF K21.9 - Gastro- esophageal reflux disease without esophagitis, R10.13 - Epigastric pain To pantoprazole (Protonix) 40 mg PO .qhs 30 tabs 6RF 30 days K21.9 - Gastro- esophageal reflux disease without esophagitis, R10.13 - Epigastric pain Coding Level of Care Code Est Pt Level 3 (61849) Diagnoses GERD (gastroesophageal reflux disease) K21.9 Dyspepsia R10.13
--- OUTSIDE RECORDS SUMMARY | 2025-07-10 14:23 | XMS_ITS | Encounter Summary ---
Author Organization [facility] Address [address] [facility] [address] [place] [address] Phone Care Team Providers Care Molecular Biology Professor Name Role Phone Vu Oconnell MD Primary Care Provider Self-Referred, Patient Unavailable Unavailab Ghassan Grayson MD, PhD Unavailable + [phone] Satya Jiang RN Unavailable [facility] [email or web address] Ivana Schuster RN Unavailable JOSE ANTONIO [email or web address] Fawn Baker RN Unavailable [place] [email or web address] Jareth Becker MD Unavailable [phone] Dante Lara MD, DMD Unavailable [phone] Lori Ayala RN Unavailable Encounter Details Date Type Department Care Team (Late st Contact Info) Description 09/01/2022 Procedure Pass [facility] Periop [address] [place] [address] Social History Tobacco Use Types Packs/Day Years [...] [facility], [address], [address] [place] [address] Jareth Becker MD [address] [place] [address] [email or web address] 09/17/2025 10:30 AM EST Office Visit [facility], [address], [address] [place] [address] Dante Lara MD, DMD [address] [place] [address] [email or web address] documented as of this encounter Visit Diagnoses Not on filedocumented in this encounter Additional Health Concerns Infection Onset Date Last Indicated Resolved Time COVID-19 Comment:Sx onset 12/25/22 Test 12/27/22 12/25/2022 12/27/2022 01/14/2023 1:21 AM E DT documented as of this encounter Care Teams Molecular Biology Professor Relationship Specialty Start Date End Date Vu Oconnell MD PCP - General Family Medicine 08/11/22 Self-Referred, Patient 08/11/22 Ghassan Martinez MD, PhD [address] [place] [phone] [email or web address] Radiation Oncology 08/29/22 Satya Jiang RN [address] [place] [address] [email or web address] Primary Infusion Nurse 09/28/22 11/25/23 Ivana Schuster, WISAM [address] [place] [address] [email or web address] Associate Infusion Nurse 09/28/22 Fawn Baker RN [address] [place] [address] [email or web address] Primary Infusion Nurse 09/28/22 Jareth Becker MD [address] [place] [address] [email or web address] Primary Oncologist Medical Oncology 09/27/23 Dante Lara MD, DMD [address] [place] [phone] [email or web address] Surgeon Otolaryngology 09/27/23 Lori Ayala RN [address] [place] [address] [email or web address] Associate Infusion Nurse 10/19/21 documented as of this encounter Additional Source Comments The information contained in this document represents components of the legal health record. It is not the complete legal health record.[facility]
--- OUTSIDE RECORDS SUMMARY | 2025-07-10 14:23 | XMS_ITS | Clinical Summary ---
Author Organization [facility] Address [address] [place] [address] [place] [address] Phone Care Team Providers Care Ip Attorney Name Role Phone Vu Oconnell MD Primary Care Provider Self-Referred, Patient Unavailable Unavailab Ghassan Grayson MD, PhD Unavailable [phone] Ivana Schuster RN Unavailable JOSE ANTONIO [email or web address] Fawn Baker RN Unavailable [place] [email or web address] Jareth Becker MD Unavailable [phone] Dante Lara MD, DMD Unavailable [phone] Lori Ayala RN Unavailable Allergies No known [...] to prescribing the opioid, I utilized the [place] Prescription Awareness Tool (MassPAT) website to review [...] to prescribing the opioid, I utilized the [employer] Prescription Awareness Tool (MassPAT) website to review [...] Tolerating a full diet. Weight is stable. GRAPHIC ARTS TECHNICIAN Support: Ongoing Emotional: Coping well Assessment & Plan (02/01/2023 10:17 PM EDT): Treatment: Bolus Cisplatin + XRT o Although still symptomatic and TSH remains suppressed, her FT4 is back down to normal. Will continue to monitor. o Continue metoprolol to manage cardiac symptoms of hyperthyroidism Oral Care / Dental Hygiene: Oral rinses as indicated Nutritional Support: Tolerating a full diet. Weight is stable. GRAPHIC ARTS TECHNICIAN Support: Ongoing Emotional: Coping well Assessment & [...] Tolerating full oral diet. Weight is down. GRAPHIC ARTS TECHNICIAN Support: Ongoing Emotional: Coping well Assessment & [...] Tolerating full oral diet. Weight is stable. GRAPHIC ARTS TECHNICIAN Support: Ongoing Emotional: Coping well Assessment & [...] Tolerating full oral diet. Weight is stable. GRAPHIC ARTS TECHNICIAN Support: Ongoing Emotional: Coping well Assessment & [...] Tolerating full oral diet. Weight is stable. GRAPHIC ARTS TECHNICIAN Support: Ongoing Emotional: Coping well Assessment & [...] Tolerating full oral diet. Weight is down. GRAPHIC ARTS TECHNICIAN Support: Ongoing Emotional: Coping well Assessment & [...] indicated Nutritional Support: Tolerating full oral diet. GRAPHIC ARTS TECHNICIAN Support: Ongoing Emotional: Coping well Assessment & [...] indicated Nutritional Support: Tolerating full oral diet. GRAPHIC ARTS TECHNICIAN Support: Ongoing Emotional: Coping well Assessment & [...] Visit [facility], [facility] [address] [facility], [address] [place] [address] Dante Lara MD, DMD Jareth Becker MD History of malignant neoplasm of oropharynx (Primary Dx) 06/18/2025 9:15 AM EDT Office Visit [facility], [facility] [address] [facility], [address]th [place] [address] Dante Lara MD, DMD Spasmodic torticollis (Primary [...] Visit [facility], [address], [address] [place] [address] Jareth Becker MD [address] [place] [address] [email or web address] 09/17/2025 10:30 AM EST Office Visit [facility], [facility] [address], [address] [place] [address] Dante Lara MD, [address] [phone] [email or web address] Health Maintenance Due Date Last Done Comments Adult Td,Tdap Booster 1990 DEPRESSION SCREENING 2002 SMOKING Hx and SMOKELESS TOBACCO SCREENING 2003 PNEUMOCOCCAL VACCINES (0-49 years) (1 of 2 - PCV) 2009 INFLUENZA VACCINE (#1) 2025 COVID-19 VACCINE ( - 2024-2 6 season) 2025 PAP SMEAR [...] (09/26/2022 12:00 AM EST) 09/26/2022 09/28/2022 Narrative [facility] - 10/03/2022 3:54 PM EST CASE: [id number] PATIENT: LEOLA RIOS Date: 1990 Sex: F [facility] Department of Pathology [address] [place] [address] CLIA License No.: [id number] Community Fundraiser: Magdiel Balderas MD, PhD Physician: IMANI CARLISLE MD Procedure Date: 09/26/2022 Insurance Account Representative: MINERVA Saha (ASCP) THINPREP PAP TEST, CERVICAL FINAL CYTOLOGIC INTERPRETATION SPECIMEN ADEQUACY: Satisfactory for evaluation; transformation zone present. INTERPRETATION: NEGATIVE FOR INTRAEPITHELIAL LESION OR MALIGNANCY. AUTOMATED REVIEW: This specimen was prescreened using the ThinPrep Imaging System. CLINICAL DATA LMP: Unknown; Routine pap screening with HPV cotesting TOTAL SLIDES 1 PROCEDURES Screening or High Risk ThinPrep with Auto Pre-Screen - [facility] 1 Final Diagnosis by Sravani PALMA (ASCP), Electronically signed on Monday October 03, 2022 at 03:02:49PM Imani Carlisle MD CYTOLOGY ORDERABLES Final Result [facility] [address] [place] [phone] * Hepatitis C antibody, qualitative (09/13/2022 12:09 PM EST) HCV Nonreactive Nonreactive [facility] Comment: Blood 09/13/2022 12:0 9 PM EST 09/13/2022 12:44 PM EST Sandra Oliver MD LAB BLOOD BKR ORDERA BLES Final Result Performing Organization Address City/[facility] Co de Phone Number [facility] [address] [place] [phone] from Last 3 Months or Most Recently Relevant to Health Maintenance Insurance [facility] [place] [address] [address] Care Teams Ip Attorney Relationship Specialty Start Date End Date Vu Oconnell MD PCP - General Family Medicine 08/11/22 Self-Referred, Patient 08/11/22 Ghassan Martinez MD, PhD [address] [place] [address], [facility]- [address] [address] [email or web address] Radiation Oncology 08/29/22 Ivana Schuster RN [address] [place] [address] [email or web address] Associate Infusion Nurse 09/28/22 Fawn Baker RN [address] [place] [address] [email or web address] Primary Infusion Nurse 09/28/22 Jareth Becker MD [address] [place] [phone] [email or web address] Primary Oncologist Medical Oncology 09/27/23 Dante Lara MD, DMD [address] [place] [phone] [email or web address] Surgeon Otolaryngology 09/27/23 Lori Ayala RN [address] [place] [phone] [email or web address] Associate Infusion Nurse 10/19/21 Additional Source Comments The information contained in this document represents components of the legal health record. It is not the complete legal health record.[facility]
--- OUTSIDE RECORDS SUMMARY | 2025-07-10 14:23 | XMS_ITS | Encounter Summary ---
Author Organization [facility] Address [address] [facility] [address] [place] [address] Phone Care Team Providers Care Radiology Manager Name Role Phone Vu Oconnell MD Primary Care Provider Self-Referred, Patient Unavailable Unavailab Ghassan Grayson MD, PhD Unavailable + [phone] Satya Jiang RN Unavailable [facility] [email or web address] Ivana Schustre RN Unavailable JOSE [email or web address] [email or web address] Fawn Baker RN Unavailable [place] [email or web address] Jareth Becker MD Unavailable [phone] Dante Lara MD, DMD Unavailable [phone] Lori Ayala RN Unavailable Encounter Details Date Type Department Care Team (Late st Contact Info) Description 09/14/2022 Procedure Pass [facility] [place] [address] [facility], [address] [place] [address] Social History Tobacco Use Types Packs/Day Years [...] [facility], [address], [address] [place] [address] Jareth Becker MD [address] [place] [address] [email or web address] 09/17/2025 10:30 AM EST Office Visit [facility], [address], [address] [place] [address] Dante Lara MD, DMD [address] [place] [address] [email or web address] du documented as of this encounter Visit Diagnoses Not on filedocumented in this encounter Additional Health Concerns Infection Onset Date Last Indicated Resolved Time COVID-19 Comment:Sx onset 12/25/22 Test 12/27/22 12/25/2022 12/27/2022 01/14/2023 1:21 AM E DT documented as of this encounter Care Teams Radiology Manager Relationship Specialty Start Date End Date Vu Oconnell MD PCP - General Family Medicine 08/11/22 Self-Referred, Patient 08/11/22 Ghassan Martinez MD, PhD [address] [place] [address], ASB1[address] [place] [address] [email or web address] Radiation Oncology 08/29/22 Satya Jiang RN [address] [place] [address], ASB1[address] [place] [address] [email or web address] Primary Infusion Nurse 09/28/22 11/25/23 Ivana Schuster RN [address] [place] [phone] [email or web address] Associate Infusion Nurse 09/28/22 Fawn Baker RN [address] [place] [address] [email or web address] Primary Infusion Nurse 09/28/22 Jareth Becker MD [address] [place] [address] [email or web address] Primary Oncologist Medical Oncology 09/27/23 Dante Lara MD, DMD [address] [place] [address] [email or web address] Surgeon Otolaryngology 09/27/23 Lori Ayala RN [address] [place] [address] [email or web address] Associate Infusion Nurse 10/19/21 documented as of this encounter Additional Source Comments The information contained in this document represents components of the legal health record. It is not the complete legal health record.[facility]
--- OUTSIDE RECORDS SUMMARY | 2025-07-10 14:23 | XMS_ITS | Encounter Summary ---
Author Organization [facility] Address [address] [place] [address] Phone Care Team Providers Care Mail Handler Equipment Operator Name Role Phone Vu Oconnell MD Primary Care Provider Self-Referred, Patient Unavailable Unavailab Ghassan Grayson MD, PhD Unavailable + [phone] Satya Jiang RN Unavailable [facility] [email or web address] Ivana Schuster RN Unavailable JOSE ANTONIO [email or web address] Fawn Baker RN Unavailable [place] [email or web address] Jareth Becker MD Unavailable [phone] Dante Lara MD, DMD Unavailable [phone] Lroi Ayala RN Unavailable Encounter Details Date Type Department Care Team (Late st Contact Info) Description 03/29/2023 Procedure Pass [facility] [address] [place] [address] Social History Tobacco Use Types Packs/Day Years [...] Visit [facility], [facility] [address] [address] Jareth Becker MD [address] [place] [address] Concepcion@[email or web address] 09/17/2025 10:30 AM EST Office Visit [facility], [facility] [address], [address] [place] [address] Dante Lara MD, [address] [address] [email or web address] du documented as of this encounter Visit Diagnoses Not on filedocumented in this encounter Care Teams Mail Handler Equipment Operator Relationship Specialty Start Date End Date Vu Oconnell MD PCP - General Family Medicine 08/11/22 Self-Referred, Patient 08/11/22 Ghassan Martinez MD, PhD [address] [place] [address] [email or web address] Radiation Oncology 08/29/22 Satya Jiang, WISAM [address] [place] [address] [email or web address] Primary Infusion Nurse 09/28/22 11/25/23 Ivana Schuster RN [address] [place] [address] WILLIAM@[email or web address] Associate Infusion Nurse 09/28/22 Fawn Baker RN [address] [place] [address] Candida@[facility] Primary Infusion Nurse 09/28/22 Jareth Becker MD [address] [place] [address] Concepcion@[facility] Primary Oncologist Medical Oncology 09/27/23 Dante Lara MD, DMD [address] [place] [address] [email or web address]. u Surgeon Otolaryngology 09/27/23 Lori Ayala RN [address] [place] [address] [email or web address] Associate Infusion Nurse 10/19/21 documented as of this encounter Additional Source Comments The information contained in this document represents components of the legal health record. It is not the complete legal health record.[facility]
--- OUTSIDE RECORDS SUMMARY | 2025-07-10 14:23 | XMS_ITS | Encounter Summary ---
Author Organization [facility] Address [address] [place] [address] [place] [address] Phone Care Team Providers Care Bread Jockey Name Role Phone Vu Oconnell MD Primary Care Provider Self-Referred, Patient Unavailable Unavailab Ghassan Grayson MD, PhD Unavailable + [phone] Satya Jiang RN Unavailable [facility] [email or web address] Ivana Schuster RN Unavailable JOSE ANTONIO HURST@[email or web address].[email or web address] Fawn Baker RN Unavailable [place] [email or web address] Jareth Becker MD Unavailable [phone] Dante Lara MD, DMD Unavailable +[phone] Lori Ayala RN Unavailable Reason for Referral * MRI/CAT Scan - Closed Specialty Diagnoses / Procedures Referred By Contmehnaz t Referred To Contact Radiology Diagnoses Head and neck cancer Procedures NM PET CT Skull Base to Mid Thighs Nkechi Cottrell MD Phone: tel: fax: mailto: Referral ID Status Reason Start Date Expiration Date Visits Re quested Visits Authorized [id number] Closed 08/23/2022 08/23/2023 1 1 Encounter Details Date Type Department Care Team (Latest Contact Info) Description 08/23/2022 Transcribe Orders Virtual Department [address] [place] [address] Nkechi Cottrell MD [address] [place], [place] [address]waldemar Jones, [address] [place] [address] [email or web address] Head and neck cancer (Primary [...] Visit [facility] and [facility], [address], [address] [place] [address] Jareth Becker MD [address] [place] [address] Concepcion@[email or web address] 09/17/2025 10:30 AM EST Office Visit [facility], [address], [address] [place] [address] Dante Lara MD, [address] [address] [email or web address]. [email or web address] documented as of this encounter Results [...] documented as of this encounter Care Teams Bread Jockey Relationship Specialty Start Date End Date Vu Oconnell MD PCP - General Family Medicine 08/11/22 Self-Referred, Patient 08/11/22 Ghassan Martinez MD, PhD [address] [place] [address], [facility]- [address] [address] Nuria@[email or web address] Radiation Oncology 08/29/22 Satya Jiang, RN [address] [facility], ASB1- L2 [place] [address] [email or web address] Primary Infusion Nurse 09/28/22 11/25/23 Ivana Schuster RN [address] [place] [address] WILLIAM@[facility] Associate Infusion Nurse 09/28/22 Fawn Baker RN [address] [place] [address] Candida@[email or web address] Primary Infusion Nurse 09/28/22 Jareth Becker MD [address] [place] [address] Concepcion@[email or web address] Primary Oncologist Medical Oncology 09/27/23 Dante Lara MD, DMD [address] [place] [address] [email or web address] u Surgeon Otolaryngology 09/27/23 Lori Ayala RN [address] [place] [address] [email or web address] [place] Associate Infusion Nurse 10/19/21 documented as of this encounter Additional Source Comments The information contained in this document represents components of the legal health record. It is not the complete legal health record.[facility]
--- OUTSIDE RECORDS SUMMARY | 2025-07-10 14:23 | XMS_ITS | Encounter Summary ---
Author Organization [facility] Address [address] [place] [address] Phone Care Team Providers Care Speech Language Pathologist Travel Name Role Phone Vu Oconnell MD Primary Care Provider Self-Referred, Patient Unavailable Unavailab Ghassan Grayson MD, PhD Unavailable + [phone] Satya Jiang RN Unavailable [facility] [email or web address] Ivana Schuster RN Unavailable JOSE ANTONIO [email or web address].[email or web address] Fawn Baker RN Unavailable [place] [email or web address] Jareth Becker MD Unavailable [phone] Dante Lara MD, DMD Unavailable [phone] Lori Ayala RN Unavailable Encounter Details Date Type Department Care Team (Late st Contact Info) Description 09/26/2022 Procedure Pass [facility] Periop [address] [place] [address] Social History Tobacco Use Types Packs/Day Years [...] Visit [facility], [place] [address] Jareth Becker MD [address] [place] [address] Jareth_[email or web address] 09/17/2025 10:30 AM EST Office Visit [facility], [place] [phone] Dante Lara MD, [place] [address] [email or web address] du documented as of this encounter Visit Diagnoses Not on filedocumented in this encounter Additional Health Concerns Infection Onset Date Last Indicated Resolved Time COVID-19 Comment:Sx onset 12/25/22 Test 12/27/22 12/25/2022 12/27/2022 01/14/2023 1:21 AM E DT documented as of this encounter Care Teams Speech Language Pathologist Travel Relationship Specialty Start Date End Date Vu Oconnell MD PCP - General Family Medicine 08/11/22 Self-Referred, Patient 08/11/22 Ghassan Martinez MD, PhD [address] [place] [address] [email or web address] Radiation Oncology 08/29/22 Satya Jiang, WISAM [address] [place] [address] [email or web address] Primary Infusion Nurse 09/28/22 11/25/23 Ivana Schuster RN [address] [place] [address] WILLIAM@[email or web address] Associate Infusion Nurse 09/28/22 Fawn Baker RN [address] [place] [address] [email or web address] Primary Infusion Nurse 09/28/22 Jareth Becker MD [address] [place] [address] Concepcion@[email or web address] Primary Oncologist Medical Oncology 09/27/23 Dante Lara MD, DMD [address] [place] [address] [email or web address] u Surgeon Otolaryngology 09/27/23 Lori Ayala, RN [address] [place] [address] MYRON@[email or web address] Associate Infusion Nurse 10/19/21 documented as of this encounter Additional Source Comments The information contained in this document represents components of the legal health record. It is not the complete legal health record.[facility]
--- OUTSIDE RECORDS SUMMARY | 2025-07-10 14:23 | XMS_ITS | Encounter Summary ---
Author Organization [facility] Address [address] [facility] [address] [place] [address] Phone Care Team Providers Care Director On Air Name Role Phone Vu Oconnell MD Primary Care Provider Self-Referred, Patient Unavailable Unavailab Ghassan Grayson MD, PhD Unavailable + [phone] Satya Jiang RN Unavailable [facility] [email or web address] Ivana Schuster RN Unavailable JOSE ANTONIO HURST@[email or web address] Fawn Baker RN Unavailable [place] [email or web address] Jareth Becker MD Unavailable [phone] Dante Lara MD, DMD Unavailable [phone] Lori Ayala RN Unavailable Encounter Details Date Type Department Care Team (Late st Contact Info) Description [address] [facility] MR Imaging, [place] [address] [place] [address] Social History Tobacco Use Types Packs/Day Years [...] Visit [facility], [facility] [address] [address] Jareth Becker MD [address] [place] [address] Concepcion@[email or web address] 09/17/2025 10:30 AM EST Office Visit [facility], [facility] [address], [address] [place] [address] Dante Lara MD, [address] [address] [email or web address] du documented as of this encounter Visit Diagnoses Not on filedocumented in this encounter Care Teams Director On Air Relationship Specialty Start Date End Date Vu Oconnell MD PCP - General Family Medicine 08/11/22 Self-Referred, Patient 08/11/22 Ghassan Martinez MD, PhD [address] [place] [address] Nuria@[facility] Radiation Oncology 08/29/22 Satya Jiang, WISAM [address] [place] [address] [email or web address] Primary Infusion Nurse 09/28/22 11/25/23 Ivana Schuster RN [address] [place] [address] WILLIAM@[email or web address] Associate Infusion Nurse 09/28/22 Fawn Baker RN [address] [place] [address] Candida@[email or web address] Primary Infusion Nurse 09/28/22 Jareth Becker MD [address] [place] [address] Concepcion@[facility] Primary Oncologist Medical Oncology 09/27/23 Dante Lara MD, DMD [address] [place] [address] [email or web address]. u Surgeon Otolaryngology 09/27/23 Lori Ayala RN [address] [place] [address] MYRON@[email or web address] Associate Infusion Nurse 10/19/21 documented as of this encounter Additional Source Comments The information contained in this document represents components of the legal health record. It is not the complete legal health record.[facility]
--- OUTSIDE RECORDS SUMMARY | 2025-07-10 14:23 | XMS_ITS ---
Author Organization [facility] Address [address] [facility] [address] [place] [address] Phone Care Team Providers Care Day Porter Name Role Phone Vu Oconnell MD Primary Care Provider Self-Referred, Patient Unavailable Unavailab Ghassan Grayson MD, PhD Unavailable [phone] Ivana Schuster RN Unavailable JOSE ANTONIO HURST@[email or web address].[facility] Fawn Baker RN Unavailable [place] [email or web address] Jareth Becker MD Unavailable [phone] Dante Lara MD, DMD Unavailable [phone] Lori Ayala RN Unavailable Active Problems Problem [...] to prescribing the opioid, I utilized the [employer] Prescription Awareness Tool ([employer] Integration Software) website to review previous prescriptions. Assessment & [...] to prescribing the opioid, I utilized the [employer] Prescription Awareness Tool ([employer] Integration Software) website to review previous prescriptions. Squamous cell [...] Tolerating a full diet. Weight is stable. BUTCHER SCULLION Support: Ongoing Emotional: Coping well Assessment & Plan (02/01/2023 10:17 PM EDT): Treatment: Bolus Cisplatin + XRT o Although still symptomatic and TSH remains suppressed, her FT4 is back down to normal. Will continue to monitor. o Continue metoprolol to manage cardiac symptoms of hyperthyroidism Oral Care / Dental Hygiene: Oral rinses as indicated Nutritional Support: Tolerating a full diet. Weight is stable. BUTCHER SCULLION Support: Ongoing Emotional: Coping well Assessment & [...] Tolerating full oral diet. Weight is down. BUTCHER SCULLION Support: Ongoing Emotional: Coping well Assessment & [...] Tolerating full oral diet. Weight is stable. BUTCHER SCULLION Support: Ongoing Emotional: Coping well Assessment & [...] Tolerating full oral diet. Weight is stable. BUTCHER SCULLION Support: Ongoing Emotional: Coping well Assessment & [...] Tolerating full oral diet. Weight is stable. BUTCHER SCULLION Support: Ongoing Emotional: Coping well Assessment & [...] Tolerating full oral diet. Weight is down. BUTCHER SCULLION Support: Ongoing Emotional: Coping well Assessment & [...] indicated Nutritional Support: Tolerating full oral diet. BUTCHER SCULLION Support: Ongoing Emotional: Coping well Assessment & [...] indicated Nutritional Support: Tolerating full oral diet. BUTCHER SCULLION Support: Ongoing Emotional: Coping well Assessment & [...] medications scheduled. a. Therapy Complete Rudolph Mckinney, TELECOMMUNICATIONS ADMINISTRATOR TREATMENT PLAN Plan Name Start Date Discontinue [...]
--- OUTSIDE RECORDS SUMMARY | 2025-07-10 14:23 | XMS_ITS | Encounter Summary ---
Author Organization [facility] Address [address] [facility] [address] [place] [address] Phone Care Team Providers Care Interlocking And Signal Mechanic Name Role Phone Vu Oconnell MD Primary Care Provider Self-Referred, Patient Unavailable Unavailab Ghassan Grayson MD, PhD Unavailable + [phone] Satya Jiang RN Unavailable [facility] [email or web address] Ivana Schuster RN Unavailable JOSE ANTONIO HURST@[email or web address] Fawn Baker RN Unavailable [place] [email or web address] Jareth Becker MD Unavailable [phone] Dante Lara MD, DMD Unavailable [phone] Lori Ayala RN Unavailable Encounter Details Date Type Department Care Team (Late st Contact Info) Description 12/01/2022 Procedure Pass [facility], [facility] [place], PET/CT [address] [place] [address] Social History Tobacco Use Types Packs/Day Years [...] Visit [facility], [place] [address] Jareth Becker MD [address] [place], [place] [phone] Jareth_Rosita@[email or web address] 09/17/2025 10:30 AM EST Office Visit [facility], [address] [address] Dante Lara MD, [place] [address] [email or web address] du documented as of this encounter Visit Diagnoses Not on filedocumented in this encounter Additional Health Concerns Infection Onset Date Last Indicated Resolved Time COVID-19 Comment:Sx onset 12/25/22 Test 12/27/22 12/25/2022 12/27/2022 01/14/2023 1:21 AM E DT documented as of this encounter Care Teams Interlocking And Signal Mechanic Relationship Specialty Start Date End Date Vu Oconnell MD PCP - General Family Medicine 08/11/22 Self-Referred, Patient 08/11/22 Ghassan Martinez MD, PhD [address] [place] [address] [email or web address]@[email or web address] Radiation Oncology 08/29/22 Satya Jiang, WISAM [address] [place] [address] [email or web address] Primary Infusion Nurse 09/28/22 11/25/23 Ivana Schuster RN [address] [place] [address] WILLIAM@[email or web address] Associate Infusion Nurse 09/28/22 Fawn Baker RN [address] [place] [address] Candida@[facility] Primary Infusion Nurse 09/28/22 Jareth Becker MD [address] [place] [address] Concepcion@[facility] Primary Oncologist Medical Oncology 09/27/23 Dante Lara MD, DMD [address] [place] [address] [email or web address] u Surgeon Otolaryngology 09/27/23 Lori Ayala RN [address] [place] [address] MYRON@[email or web address] Associate Infusion Nurse 10/19/21 documented as of this encounter Additional Source Comments The information contained in this document represents components of the legal health record. It is not the complete legal health record.[facility]
== END 2025-07-10 14:36 | disposition home or self-care (01) ==
LOC: HO.HGI 13:51
PROVIDERS: PCP Family Medicine; Visit Provider Nurse Practitioner
DX: K21.9 Gastro-esophageal reflux disease without esophagitis (principal); R10.13 Epigastric pain
CPT/HCPCS: 99213